=== PATIENT | male | born 1950 | race Caucasian/White ===

== ENCOUNTER 2017-06-21 09:41 | Emergency (ER) | payer MEDICARE, OTHER ==
[2017-06-21 09:46] VITALS: TEMP 98.2
[2017-06-21] MEDS ORDERED: SODIUM CHLORIDE 0.9% 1,000 ML IV ONE (09:50)
--- NOTE | 2017-06-21 10:16 | ED ---
General Adult HPI - General Chief complaint: Syncope Stated complaint: Dizziness Time Seen by Provider: 06/21/17 09:48 Source: patient, EMS, RN notes reviewed Mode of arrival: EMS Limitations: no limitations - History of Present Illness Initial comments: 67-year-old male presenting with near syncopal episode. Patient's was in his usual state of health, this morning bent down to pet the dog, felt very lightheaded and nearly passed out. Patient denied any chest pain with this. There was some mild dyspnea. No palpitations. Patient denies abdominal pain but states he has some mild nausea. No vomiting or diarrhea. No fever or chills. Patient has been otherwise well. States he ate a normal breakfast this morning. Denies ashish vertigo symptoms, describes more of a lightheadedness and near syncopal episode. Patient does have history of TIA approximately 8 years ago. He has been taking a daily aspirin. At the time my evaluation, patient is symptomatic only with standing. He feels normal with sitting or laying. - Related Data Home Medications Medication Instructions Recorded Confirmed Metoprolol Tartrate [Lopressor] 50 mg PO BID 12/08/13 06/21/17 Simvastatin [Zocor] 40 mg PO HS 12/08/13 06/21/17 Tamsulosin HCl [Flomax] 0.8 mg PO HS 12/08/13 06/21/17 Aspirin EC [Ecotrin] 325 mg PO HS 06/21/17 06/21/17 Cholecalciferol [Vitamin D3] 5,000 unit PO HS 06/21/17 06/21/17 Fluticasone Nasal [place] [Flonase 1 spray EA NOSTRIL DAILY 06/21/17 06/21/17 Nasal [place]] Losartan/Hydrochlorothiazide 1 tab PO DAILY 06/21/17 06/21/17 [Losartan-Hctz 100-25 mg Tab] Magnesium Oxide [Luevano] 500 mg PO HS 06/21/17 06/21/17 Zinc 100mg 100 mg PO HS 06/21/17 06/21/17 Allergies Allergy/AdvReac Type Severity Reaction Status Date / Time No Known Allergies Allergy Verified 06/21/17 10:19 Review of Systems ROS Statement: Those systems with pertinent positive or pertinent negative responses have been documented in the HPI. ROS Other: All systems not noted in ROS Statement are negative. Past Medical History Past Medical History: CVA/TIA, Hyperlipidemia, Hypertension, Osteoarthritis (OA) Additional Past Medical History / Comment(s): BACK PROBLEMS History of Any Multi-Drug Resistant Organisms: None Reported Past Surgical History: Joint Replacement, Orthopedic Surgery Additional Past Surgical History / Comment(s): LEFT KNEE, RIGHT ROTATOR CUFF, RIGHT HAND Past Psychological History: No Psychological Hx Reported Smoking Status: Former smoker Past Alcohol Use History: None Reported Past Drug Use History: None Reported General Exam Limitations: no limitations General appearance: alert, in no apparent distress Head exam: Present: atraumatic, normocephalic Eye exam: Present: normal appearance, PERRL ENT exam: Present: normal exam Neck exam: Present: normal inspection. Absent: tenderness, meningismus Respiratory exam: Present: normal lung sounds bilaterally. Absent: respiratory distress, wheezes Cardiovascular Exam: Present: regular rate, normal rhythm GI/Abdominal exam: Present: soft. Absent: distended, tenderness Extremities exam: Present: normal inspection, normal capillary refill. Absent: pedal edema, calf tenderness Neurological exam: Present: alert, oriented X3, CN II-XII intact, other (Heel-to -falcon normal, finger to nose normal no ataxia). Absent: motor sensory deficit Psychiatric exam: Present: normal affect, normal mood Skin exam: Present: warm, dry, intact. Absent: cyanosis, diaphoretic, erythema Course Vital Signs 06/21/17 06/21/17 06/21/17 09:43 10:50 12:31 Temperature 98.2 F Pulse Rate 89 59 L 61 Respiratory 18 19 18 Rate Blood Pressure 140/77 128/71 136/86 O2 Sat by Pulse 97 100 97 Oximetry EKG Findings - EKG Comments: EKG Findings:: EKG, normal sinus rhythm, left axis deviation, low voltage QRS, ventricular rate is 64, CA interval 194, QRS duration 94, QTC 431 Medical Decision Making - Medical Decision Making 67-year-old male resents with near syncopal episode while standing and bending forward. Patient did not pass out. Orthostatic vital signs were not able to be obtained in the emergency department because the patient was too symptomatic with standing prior to fluid resuscitation. EKG shows normal sinus rhythm. Exam is unremarkable, nonfocal neurologic exam, no ataxia. Chest x-rays obtained is negative for acute cardiopulmonary disease, head CT negative for intracranial hemorrhage or mass effect. Workup does reveal normal white blood cell count 7.5, hemoglobin is on the high side of normal which is 17.3. Troponin negative. Patient's given 1 L of IV hydration. On reevaluation he is totally asymptomatic. Standing without issue. Urine does appear very dark consistent with a degree of dehydration. Patient has no complaints the time of reevaluation. Diagnosis: Near-syncope, dehydration - Lab Data Result diagrams: 06/21/17 09:50 06/21/17 09:50 Lab Results 06/21/17 06/21/17 06/21/17 Range/Units 09:50 09:50 09:50 WBC 7.5 (3.8-10.6) k/uL RBC 5.98 H (4.30-5.90) m/uL Hgb 17.3 (13.0-17.5) gm/dL Hct 51.6 (39.0-53.0) % MCV 86.3 (80.0-100.0) fL MCH 29.0 (25.0-35.0) pg MCHC 33.6 (31.0-37.0) g/dL RDW 12.8 (11.5-15.5) % Plt Count 194 (150-450) k/uL Neutrophils % 70 % Lymphocytes % 19 % Monocytes % 6 % Eosinophils % 3 % Basophils % 1 % Neutrophils # 5.3 (1.3-7.7) k/uL Lymphocytes # 1.4 (1.0-4.8) k/uL Monocytes # 0.5 (0-1.0) k/uL Eosinophils # 0.2 (0-0.7) k/uL Basophils # 0.1 (0-0.2) k/uL PT (9.0-12.0) sec INR (<1.2) APTT (22.0-30.0) sec Sodium 144 (137-145) mmol/L Potassium 4.0 (3.5-5.1) mmol/L Chloride 104 (98-107) mmol/L Carbon Dioxide 28 (22-30) mmol/L Anion Gap 12 mmol/L BUN 19 (9-20) mg/dL Creatinine 0.68 (0.66-1.25) mg/dL Est GFR (CKD-EPI)AfAm >90 (>60 ml/min/1.73 sqM) Est GFR (CKD-EPI)NonAf >90 (>60 ml/min/1.73 sqM) Glucose 109 H (74-99) mg/dL Calcium 9.2 (8.4-10.2) mg/dL Magnesium 2.0 (1.6-2.3) mg/dL Total Bilirubin 1.0 (0.2-1.3) mg/dL AST 30 (17-59) U/L ALT 42 (21-72) U/L Alkaline Phosphatase 77 (38-126) U/L Total Creatine Kinase 195 H (55-170) U/L CK-MB (CK-2) 3.1 H* (0.0-2.4) ng/mL CK-MB (CK-2) Rel Index 1.6 Troponin I <0.012 (0.000-0.034) ng/mL Total Protein 6.7 (6.3-8.2) g/dL Albumin 3.8 (3.5-5.0) g/dL Urine Color Urine Appearance (Clear) Urine pH (5.0-8.0) Ur Specific [place] (1.001-1.035) Urine Protein (Negative) Urine Glucose (UA) (Negative) Urine Ketones (Negative) Urine Blood (Negative) Urine Nitrite (Negative) Urine Bilirubin (Negative) Urine Urobilinogen (<2.0) mg/dL Ur Leukocyte Esterase (Negative) Urine RBC (0-5) /hpf Urine WBC (0-5) /hpf Ur Squamous Epith Cells (0-4) /hpf Urine Bacteria (None) /hpf Urine Mucus (None) /hpf 06/21/17 06/21/17 Range/Units 09:50 09:50 WBC (3.8-10.6) k/uL RBC (4.30-5.90) m/uL Hgb (13.0-17.5) gm/dL Hct (39.0-53.0) % MCV (80.0-100.0) fL MCH (25.0-35.0) pg MCHC (31.0-37.0) g/dL RDW (11.5-15.5) % Plt Count (150-450) k/uL Neutrophils % % Lymphocytes % % Monocytes % % Eosinophils % % Basophils % % Neutrophils # (1.3-7.7) k/uL Lymphocytes # (1.0-4.8) k/uL Monocytes # (0-1.0) k/uL Eosinophils # (0-0.7) k/uL Basophils # (0-0.2) k/uL PT 10.5 (9.0-12.0) sec INR 1.1 (<1.2) APTT 23.7 (22.0-30.0) sec Sodium (137-145) mmol/L Potassium (3.5-5.1) mmol/L Chloride (98-107) mmol/L Carbon Dioxide (22-30) mmol/L Anion Gap mmol/L BUN (9-20) mg/dL Creatinine (0.66-1.25) mg/dL Est GFR (CKD-EPI)AfAm (>60 ml/min/1.73 sqM) Est GFR (CKD-EPI)NonAf (>60 ml/min/1.73 sqM) Glucose (74-99) mg/dL Calcium (8.4-10.2) mg/dL Magnesium (1.6-2.3) mg/dL Total Bilirubin (0.2-1.3) mg/dL AST (17-59) U/L ALT (21-72) U/L Alkaline Phosphatase (38-126) U/L Total Creatine Kinase (55-170) U/L CK-MB (CK-2) (0.0-2.4) ng/mL CK-MB (CK-2) Rel Index Troponin I (0.000-0.034) ng/mL Total Protein (6.3-8.2) g/dL Albumin (3.5-5.0) g/dL Urine Color Yellow Urine Appearance Cloudy (Clear) Urine pH 8.0 (5.0-8.0) Ur Specific [place] 1.019 (1.001-1.035) Urine Protein Negative (Negative) Urine Glucose (UA) Negative (Negative) Urine Ketones Negative (Negative) Urine Blood Trace H (Negative) Urine Nitrite Negative (Negative) Urine Bilirubin Negative (Negative) Urine Urobilinogen <2.0 (<2.0) mg/dL Ur Leukocyte Esterase Negative (Negative) Urine RBC 3 (0-5) /hpf Urine WBC 2 (0-5) /hpf Ur Squamous Epith Cells <1 (0-4) /hpf Urine Bacteria Rare H (None) /hpf Urine Mucus Rare H (None) /hpf Disposition Clinical Impression: Dehydration, Near syncope Disposition: HOME SELF-CARE Condition: Fair Instructions: Near Syncope (ED) Additional Instructions: Please return with worsening or changing symptoms. Is patient prescribed a controlled substance at discharge?: No Referrals: Bev Macdonald MD [Primary Care Provider] - 1-2 days Time of Disposition: 13:05
[2017-06-21 10:19] LABS: Basophils # (A) 0.1 k/uL (0-0.2); Basophils % (A) 1 %; Eosinophils # (A) 0.2 k/uL (0-0.7); Eosinophils % (A) 3 %; HCT 51.6 % (39.0-53.0); HGB 17.3 gm/dL (13.0-17.5); Lymphocytes # (A) 1.4 k/uL (1.0-4.8); Lymphocytes % (A) 19 %; MCHC 33.6 g/dL (31.0-37.0); MCV 86.3 fL (80.0-100.0); Mean Platelet Volume 7.2; Monocytes # (A) 0.5 k/uL (0-1.0); Monocytes % (A) 6 %; Neutrophils # (A) 5.3 k/uL (1.3-7.7); Neutrophils % (A) 70 %; Platelet Count 194 k/uL (150-450); RBC 5.98 m/uL (4.30-5.90); RDW 12.8 % (11.5-15.5); WBC 7.5 k/uL (3.8-10.6)
[2017-06-21 10:28] LABS: INR 1.1 (<1.2); Partial Thromboplastin Time 23.7 sec (22.0-30.0); Prothrombin Time 10.5 sec (9.0-12.0)
[2017-06-21 10:30] LABS: Appearance,Urine Cloudy (Clear); Bacteria,Urine Rare /hpf; Bilirubin,Urine Negative (Negative); Blood,Urine Trace (Negative); Color,Urine Yellow; Glucose,Urine (UA) Negative (Negative); Ketones,Urine Negative (Negative); Leukocyte Esterase,Urine Negative (Negative); Mucus,Urine Rare /hpf; Nitrite,Urine Negative (Negative); Protein,Urine Negative (Negative); RBC,Urine 3 /hpf (0-5); Specific Gravity,Urine 1.019 (1.001-1.035); Squamous Epithelial Cell,Urine <1 /hpf (0-4); Urobilinogen,Urine <2.0 mg/dL (<2.0); WBC,Urine 2 /hpf (0-5)
[2017-06-21 10:31] LABS: ALT 42 U/L (21-72); AST 30 U/L (17-59); Albumin 3.8 g/dL (3.5-5.0); Alkaline Phosphatase 77 U/L (38-126); Anion Gap 12 mmol/L; Blood Urea Nitrogen 19 mg/dL (9-20); Calcium 9.2 mg/dL (8.4-10.2); Carbon Dioxide 28 mmol/L (22-30); Chloride 104 mmol/L (98-107); Glucose 109 mg/dL (74-99); Sodium 144 mmol/L (137-145); Total Protein 6.7 g/dL (6.3-8.2)
--- NOTE | 2017-06-21 10:32 | XR ---
EXAMINATION TYPE: XR chest 2V DATE OF EXAM: 06/21/2017 COMPARISON: Chest x-ray April 01, 2009. HISTORY: Dizziness and weakness. TECHNIQUE: Frontal and lateral views of the chest are obtained. FINDINGS: Low lung volumes are redemonstrated. There is no focal air space opacity, pleural effusion, or pneumothorax seen. The cardiac silhouette size is within normal limits with atherosclerotic asif ge in aortic knob. There is multilevel spurring in the right lateral thoracic spine. IMPRESSION: No suspicious acute cardiopulmonary process.
[2017-06-21 10:48] LABS: Creatine Kinase 195 U/L (55-170)
[2017-06-21] MEDS ORDERED: ONDANSETRON 4 MG/2 ML VIAL IVP STA (11:00)
[2017-06-21 11:01] LABS: Troponin I <0.012 ng/mL (0.000-0.034)
[2017-06-21] MEDS ORDERED: MECLIZINE 12.5 MG TAB PO STA (11:01)
[2017-06-21 11:02] LABS: Creatine Kinase MB 3.1 ng/mL (0.0-2.4)
[2017-06-21] MEDS ORDERED: METOPROLOL TARTRATE 5 MG/5 ML VIAL IVP STA (11:02)
--- NOTE | 2017-06-21 12:25 | CT ---
EXAMINATION TYPE: CT brain wo con DATE OF EXAM: 06/21/2017 COMPARISON: Prior head CT 04/01/2009 HISTORY: Dizziness CT DLP: 1156 mGycm Automated exposure control for dose reduction was used. Helical imaging through the brain. FINDINGS: There is no significant interval change. Cerebral vascular calcifications are present. There is no he morrhage or hydrocephalus. Brain density is stable. Minimal mucosal disease present in the ethmoid ai r cells. IMPRESSION: NO SIGNIFICANT INTERVAL CHANGE. NO BRAIN ABNORMALITY EVIDENT.
[2017-06-21 12:36] VITALS: BP 136/86; PULSE 61; RESP 18
== END 2017-06-21 13:10 | disposition home or self-care (01) ==
LOC: EC 09:41
DX: E86.0 Dehydration (principal); R55 Syncope and collapse; E78.5 Hyperlipidemia, unspecified; I10 Essential (primary) hypertension; Z86.14 Personal history of Methicillin resistant Staphylococcus aureus infection; Z87.891 Personal history of nicotine dependence; Z79.82 Long term (current) use of aspirin; Z79.51 Long term (current) use of inhaled steroids; Z79.899 Other long term (current) drug therapy; Z86.73 Personal history of transient ischemic attack (TIA), and cerebral infarction without residual deficits
CPT/HCPCS: 36415; 93005; 80053; 82550; 82553; 83735; 84484; 85025; 85610; 85730; 81001; 71046; 70450; 99285; 96374; 96361; J2405

== ENCOUNTER → 2022-07-28 | Outpatient (CLI) | payer MEDICARE, OTHER ==
--- NOTE | 2022-07-28 14:48 | CTL ---
EXAMINATION TYPE: CT Low Dose Lung DATE OF EXAM ORDERED: 07/28/2022 HISTORY: Long-term tobacco use. Lung cancer screening CT DLP: 95.[address] CTDI: 2.4 mGy Automated exposure control for dose reduction was used. SCREENING VISIT: First after baseline COMPARISON: Prior study July 28, 2021 TECHNIQUE: Low dose computed tomography scan was performed through the chest at 1 mm thick sections a nd reconstructed images in multiple planes at 1 mm and [address] DIAGNOSTIC QUALITY: Satisfactory FINDINGS: LUNG NODULES: None. LUNGS: COPD: Severity: Mild Fibrosis: Severity: None Lymph nodes: Calcified mediastinal lymph nodes redemonstrated. Other findings: Mild calcification at level of the mitral and aortic valves RIGHT PLEURAL SPACE: Effusion: None Calcification: None Thickening: None Pneumothorax: None LEFT PLEURAL SPACE: Effusion: None Calcification: None Thickening: None Pneumothorax: None HEART: Heart Size: Normal Coronary Calcification: Moderate Pericardial Effusion: None OTHER FINDINGS: Upper abdomen: Occasional punctate calcification in the spleen redemonstrated Bony thorax: Multilevel spurring in the spine. Supraclavicular region: None Other: None IMPRESSION: No new suspicious nodules. CT LUNG RAD AND CT CHEST RECOMMENDATION: Lung-Rad 1 Negative: Continue annual screening with LDCT in 12 months. S Modifier (other clinically significant findings): None
== END | disposition home or self-care (01) ==
LOC: RADCTMAIN 13:38
PROVIDERS: ATTEND Family Medicine
DX: Z12.2 Encounter for screening for malignant neoplasm of respiratory organs (principal); Z87.891 Personal history of nicotine dependence
CPT/HCPCS: 71271

== ENCOUNTER 2022-12-29 11:36 | Inpatient (IN) | payer MEDICARE, OTHER ==
[~2022-12-29 11:36] MED LIST: DEXAMETHASONE SOD PHOSPHATE 4 MG/ML 1 ML VIAL IV ONE; HYDROmorphone 0.5 MG/0.5 ML SYRINGE IVP PRN; LIDOCAINE 1% (10MG/ML) FOR IV START INTRADERMA PRN; MIDAZOLAM 2 MG/2 ML VIAL IV PRN; ONDANSETRON 4 MG/2 ML VIAL IVP ONE; ceFAZolin 1,000 MG in SODIUM CHLORIDE 0.9% IRRIGATIO 1,000 ML IRRIGATION PRN
[2022-12-29] MEDS: LACTATED RINGERS 1,000 ML IV SCH (12:41)
[2022-12-29] MEDS ORDERED: ONDANSETRON 4 MG/2 ML VIAL IVP ONE (12:45)
[2022-12-29] MEDS ORDERED: ONDANSETRON 4 MG/2 ML VIAL ONE (12:57)
[2022-12-29] MEDS ORDERED: GELATIN SPONGE,ABSORB (LARGE) 1 EACH SPONGE TOPICAL ONE ×2 (14:47→15:54)
[2022-12-29] MEDS ORDERED: methylPREDNISolone ACETATE 80 MG/ML 1 ML VIAL MISCELLANE ONE ×2 (14:47→15:54)
[2022-12-29] MEDS ORDERED: LIDOCAINE 0.5%-EPI 1:200,000 50 ML VIAL SQ ONE ×2 (14:47→15:23)
[2022-12-29] MEDS ORDERED: BUPIVACAINE (PF) 0.5% 30 ML VIAL SQ ONE ×2 (14:48→15:23)
[2022-12-29] MEDS ORDERED: THROMBIN (BOVINE) 5,000 UNIT VIAL MISCELLANE ONE ×2 (14:48→15:54)
[2022-12-29] MEDS ORDERED: NEOSTIGMINE 1 MG/ML 10 ML VIAL ONE (14:51)
[2022-12-29] MEDS ORDERED: GLYCOPYRROLATE 0.2 MG/ML 2 ML VIAL ONE (14:51)
[2022-12-29] MEDS ORDERED: PHENYLEPHRINE-0.9% NACL SYG 1,000 MCG/10 ML SYRINGE ONE (14:51)
[2022-12-29] MEDS ORDERED: ePHEDrine 50 MG/ML 1 ML VIAL ONE (14:51)
[2022-12-29] MEDS ORDERED: PROPOFOL 10 MG/ML 20 ML VIAL IV ONE (14:51)
[2022-12-29] MEDS ORDERED: LIDOCAINE 1% INJ 10MG/ML (20 ML MDV) ONE (14:51)
[2022-12-29] MEDS ORDERED: fentaNYL (PF) 50 MCG/ML 2 ML AMP ONE (14:51)
[2022-12-29] MEDS ORDERED: HYDROmorphone (PF) 1 MG/ML ONE (14:51)
[2022-12-29] MEDS ORDERED: SUCCINYLCHOLINE CHLORIDE 200 MG/10 ML VIAL IV ONE (14:51)
[2022-12-29] MEDS ORDERED: ROCURONIUM 10 MG/ML (5 ML VIAL) IV ONE (14:51)
[2022-12-29] MEDS ORDERED: LACTATED RINGERS 1,000 ML IV ONE (16:12)
--- NOTE | 2022-12-29 17:36 | XR ---
EXAMINATION TYPE: XR lumbar spine 2 or 3V, FL guidance operating room DATE OF EXAM: 12/29/2022 CLINICAL HISTORY: Low back pain. TECHNIQUE: Fluoroscopy. COMPARISON: None. FINDINGS: Fluoroscopic guidance was provided during attempted L3-L4 laminectomy procedure performed by Dr. Valdes. A total of 1.3 seconds of fluoroscopic time was utilized during the procedure and 1 sp ot image is acquired. Intraoperative image acquired shows a pointer for localization purposes for surgical planning at post erior L4 level. IMPRESSION: As Above.
--- NOTE | 2022-12-29 17:40 | P.OP ---
Date of Procedure: 12/29/22 Preoperative Diagnosis: Severe spinal stenosis L3 4, lower extremity radiculopathy, lower extremity weakness, degenerative disc disease, neurogenic claudication Postoperative Diagnosis: Same with inadvertent intraoperative dural tear during surgery Anesthesia: GETA Pathology: none sent Condition: stable Disposition: PACU Description of Procedure: BRIEF OPERATIVE NOTE Preoperative Diagnosis:Severe spinal stenosis L3 4, lower extremity radiculopathy, lower extremity weakness, degenerative disc disease, neurogenic claudication Postoperative Diagnosis: Same with intraoperative inadvertent dural tear Procedure: Laminectomy and decompression L3 4 Surgeon: Dr. Valdes Graphic Design Manager: Aaron Cheek is present throughout the entire the case persistence during positioning, dissection, exposure, visualization, and all crucial elements of the case as well as closure. Anesthesia: General anesthesia Estimated blood loss: Approximately 150 mL Complications: None apparent Components implanted: We placed a small one and half by 1 cm piece of DuraGen over the L3 4 interlaminar space dural tear with approximately 5 mL of Tisseel Disposition: To recovery room in good stable condition. OPERATIVE INDICATIONS The patient has been having issues in their lower back and lower extremities. He was having severe worsening and is having inability to ambulate due to his symptoms. He was having weakness in his lower extremities particularly with ambulation. He is having significant decrease in his overall function and mobility. His found have evidence of significant spondylosis at his lumbar spine. At the L3 4 level there was particular severe stenosis with congestion at his cauda equina which correlated well with his low back and lower extremity issues. The patient has been through conservative treatment. He is not having any benefit despite conservative treatment. We discussed various treatment options including surgery, and the patient wishes to proceed with surgery We discussed the risk, patient's alternatives and benefits of surgery including but not limited to, risk of bleeding risk of infection, risk of need for further surgery, risk of decreased, loss of motion, loss of function, nerve damage, paralysis, heart attack, blindness and . I felt that he can do well with decompression at that level. We did discuss possibly of decompression with possibly of fusion as well as the possibility of interlaminar stabilization. We felt that decompression with possible placement of interlaminar stabilizer could do well for him. OPERATIVE SUMMARY After discussing all the risks, patient alternatives and benefits at length, the patient elected to proceed with surgical intervention, signed informed consent, and presented for their procedure. The patient was seen and examined in the preoperative holding area and the surgical site was marked. The patient was given antibiotics and brought to the operating room. The patient was sedated and intubated by anesthesia in standard fashion. The patient was positioned on to the operating room table in a prone position on the appropriate frame which was well-padded and well molded. We were careful to pad any bony prominences and pressure points. We were careful to maintain the patient's cervical spine and good neutral alignment and position throughout. The patient was prepped and draped in a normal standard fashion. An appropriate timeout and keystone protocol performed. We were able to proceed with the surgery. Fluoroscopy was utilized to establish the appropriate level. The local wound area was infiltrated with local anesthetic. An incision was made at the midline longitudinally over the appropriate levels. Dissection was taken down subcutaneously to the level of the fascia which was split midline. Dissection was taken over the lamina. Intraoperative fluoroscopy was taken which showed a marker at the appropriate level at L3 4. With the appropriate level positively confirmed, we were able to proceed with laminectomy. The wound was copiously irrigated and suctioned dry as had been done periodically throughout the case. I performed a laminectomy with a combination of curettes and a high-speed bur and [place] rongeurs. A small medial facetectomy was performed bilaterally to get further decompression. A partial foraminotomy was also performed. The ligamentum flavum was severely thickened and it worked carefully to start to take down the ligamentum flavum. Portions of the ligamentum flavum were taken down to further enhance decompression however at this point it was discovered that there was obvious dural tear at the intralaminar space at L3 4. The nerve roots were clearly visible and somewhat bundled. There was however, no significant leakage of CSF fluid. At this point in the case the patient started to buttock from his anesthesia and there is no significant CSF leakage. The patient was settled with his Gen. anesthesia and IV began to explore the area and extend the laminectomy and partial medial facetectomy to try to expose the margins of the dural tear. I could see the traversing nerve roots but I was not able to find any margins of the dura to attempt to reapproximate. There was still no evidence of CSF leakage on the field. I had good decompression at the space. There is no gross CSF leakage. However I was unable to find margins of the dura. This did not seem to be a simple tear but rather a portion of dura that was missing or had been excised during the decompression. It possible that the dura had been significantly adherent and scarred to the ligamentum and undersurface of lamina and had been removed during the decompression. The area over the nerve roots that was exposed was approximately 1 x 2 centimeters at the margins of the decompression itself. I could not specifically identify any margins of dura. At this point I had to decide whether or not to further expand the laminectomy both cephalad laterally and caudally to try to find margins of the dura versus the possibility of trying to place a patch of DuraGen over the area and potential Tisseel to cover. Again there was no CSF leakage from the open space. Rather than pursue further opening and destabilization with extensive surgery I felt that it would be safe to place a patch of DuraGen over the area and placed Tisseel around the margins to try to achieve closure. A small portion of DuraGen was cut placed under the margins of the laminectomy and then coated with Tisseel. The patient again had some bucking but there is no evidence of any CSF leak. We decided to proceed with closure. The wound was irrigated and suctioned dry. We were able to proceed with closure. The fascia was closed for a watertight closure. The subcuticular tissue was closed with absorbable suture. The wound was cleaned and dried and dressed with the appropriate dressing. The drapes were broken down. The patient was gently rolled back onto their hospital bed being careful to maintain their cervical spine and good neutral alignment and position. They were woken up by anesthesia, extubated, and brought to the re covery room in good stable condition. He'll remain flat in bed. The patient will be admitted to the hospital for observation and for appropriate postoperative care, medical management and monitoring. He'll remain flat in bed. We will continue to follow them closely about the postoperative course.
[2022-12-29] MEDS ORDERED: HYDROmorphone 1 MG/ML 1 ML SYRINGE IVP PRN (17:41)
[2022-12-29] MEDS ORDERED: BENZOCAINE/MENTHOL LOZENG 1 EACH LOZENGE MUCOUS MEM PRN (17:41)
[2022-12-29] MEDS ORDERED: HYDROmorphone 0.5 MG/0.5 ML SYRINGE IVP PRN (17:41)
[2022-12-29] MEDS ORDERED: HYDROcodone/APAP 5-325MG 1 EACH TAB PO PRN (17:41)
[2022-12-29] MEDS ORDERED: SENNOSIDES-DOCUSATE SODIUM 1 EACH TAB PO PRN (17:42)
[2022-12-29] MEDS ORDERED: ONDANSETRON 4 MG/2 ML VIAL IVP PRN (17:42)
[2022-12-29] MEDS: SODIUM CHLORIDE 0.9% 1,000 ML IV SCH (20:01)
[2022-12-29] MEDS: ATORVASTATIN 20 MG TAB PO SCH (21:58)
[2022-12-29] MEDS: TAMSULOSIN 0.4 MG CAP.ER.24H PO SCH (21:58)
[2022-12-29] MEDS: METOPROLOL TARTRATE 50 MG TAB PO SCH (21:58)
[2022-12-29] MEDS: CHOLECALCIFEROL 25 MCG (1000 IU) TABLET PO SCH (21:58)
[2022-12-29] MEDS: MAGNESIUM OXIDE 400 MG TAB PO SCH (22:00)
[2022-12-29] MEDS: NON FORMULARY DRUG (Tadalafil [Tadalafil] 5 MG Tablet) PO SCH (22:00)
[2022-12-29] MEDS: methylPREDNISolone SOD SUCCI 125 MG/2 ML VIAL IV SCH (23:17)
[2022-12-29] MEDS: HYDROmorphone 1 MG/ML 1 ML SYRINGE IVP PRN (23:18)
[2022-12-30] MEDS: HYDROcodone/APAP 10-325MG 1 EACH TAB PO PRN ×3 (00:41→15:16)
[2022-12-30] MEDS: HYDROmorphone 1 MG/ML 1 ML SYRINGE IVP PRN ×3 (03:31→11:18)
[2022-12-30] MEDS: LACTATED RINGERS 1,000 ML IV SCH ×2 (07:17→10:40)
--- NOTE | 2022-12-30 08:48 | P.PN ---
Progress Note - Text Progress Note Date: 12/30/22 Postoperative day #1 Patient is seen and examined today at bedside. I was into medication with the nurse a few times overnight as well. Patient continues to have severe symptoms in his low back and towards his hips bilaterally. He seems to be having significant neurologic pain. He is not complaining weakness but he does feel numbness over his legs diffusely. He is unable to obtain any comfort despite the pain medications. He denies any nausea. Denies any specific headaches. He is unable to find comfort and positioning while flat in bed. Physical Exam Afebrile with stable vital signs Abdomen is soft nontender. Chest has good excursion deep and space expiration The incision site is clean dry and intact. No erythema there is no purulence. Extremities have not had change in his strength from prior to surgery. He may have some sensory diffuse paresthesias is unable to characterize Calves and thighs were soft nontender without evidence of DVT. Assessment/Plan Postoperative day #1 status post laminectomy decompression at L3 4 Incidental durotomy L3 4 Possible entrapment of herniated nerve roots at durotomy site I had a long talk with the patient and his this morning at bedside. The patient is having significant symptoms and does not seem to be responding expectedly from his surgery. He had an incidental durotomy have time of surgery. With significant difficulty at times surgery trying to perform repair and I think that he may have entrapment of his nerve roots around the durotomy site. I think it would be unlikely for this to resolve on its own and I discussed this with him. I think that she has potential for benefit with repeat surgery for revision of the laminectomy decompression evaluation of the durotomy site and revision of the dural repair. I tried to explain this at length at bedside with him and his . It is difficult to predict the exact nature of his pain given the short time after his surgery thus far but his pain does not seem to be proportional to the surgical site itself and I think that there is further issues with the nerve roots at the durotomy site contributint to his symptoms. I discussed with him the idea of further surgery with revision laminectomy and revision repair. I discussed further risks, occasions a lternatives and benefits including but not limited to the risk of bleeding risk of infection risk of need for further surgery risk of further tear risk of damage to nerves risk of problems with anesthesia as well as the fact that surgery may not alleviate his symptoms as explained. He understands these issues and will plan to proceed with surgery today. He'll remain nothing by mouth for surgery today.
[2022-12-30] MEDS: ASPIRIN 81 MG PO SCH (08:49)
[2022-12-30] MEDS: LOSARTAN-HCTZ 50-12.5 MG 1 EACH TAB PO SCH (08:53)
[2022-12-30] MEDS: METOPROLOL TARTRATE 50 MG TAB PO SCH (08:53)
[2022-12-30] MEDS: SODIUM CHLORIDE 0.9% 1,000 ML IV SCH ×3 (08:53→23:18)
[2022-12-30] MEDS: diazePAM 5 MG TAB PO PRN ×2 (08:54→15:16)
[2022-12-30] MEDS: methylPREDNISolone SOD SUCCI 125 MG/2 ML VIAL IV SCH ×3 (08:54→23:39)
[2022-12-30 10:59] LABS: BUN/Creat Ratio 26.57 Ratio (12.00-20.00); Blood Urea Nitrogen 18.6 mg/dL (9.0-27.0); Calcium 9.2 mg/dL (8.7-10.3); Carbon Dioxide 23.4 mmol/L (21.6-31.8); Chloride 107 mmol/L (96-109); Glucose 142 mg/dL (70-110); Potassium 3.9 mmol/L (3.5-5.5); Sodium 143 mmol/L (135-145)
[2022-12-30 11:02] LABS: Basophils # (A) 0.02 X 10*3/uL (0.00-0.10); Basophils % (A) 0.1 %; Eosinophils # (A) 0 X 10*3/uL (0.04-0.35); Eosinophils % (A) 0 %; HCT 51.3 % (39.6-50.0); HGB 17.6 d/dL (13.0-17.0); Lymphocytes # (A) 0.69 X 10*3/uL (0.90-5.00); Lymphocytes % (A) 3.9 %; MCH 30.5 pg (27.0-32.0); MCHC 34.3 d/dL (32.0-37.0); MCV 88.9 FL (80.0-97.0); Monocytes # (A) 0.13 X 10*3/uL (0.20-1.00); Monocytes % (A) 0.7 %; NRBC Per 100 WBC 0 X 10*3/uL (0.00-0.01); Neutrophils # (A) 16.78 X 10*3/uL (1.80-7.70); Neutrophils % (A) 94.7 %; Platelet Count 155 X 10*3/uL (140-440); RBC 5.77 X 10*6/uL (4.40-5.60); RDW 12.4 % (11.5-14.5); WBC 17.73 X 10*3/uL (4.50-10.00)
[2022-12-30] MEDS ORDERED: LACTATED RINGERS 1,000 ML IV ONE ×2 (16:45→18:54)
[2022-12-30] MEDS ORDERED: ONDANSETRON 4 MG/2 ML VIAL IVP ONE (17:10)
[2022-12-30] MEDS ORDERED: DEXAMETHASONE SOD PHOSPHATE 4 MG/ML 1 ML VIAL IVP ONE (17:11)
[2022-12-30] MEDS ORDERED: fentaNYL (PF) 50 MCG/ML 2 ML AMP IVP ONE (17:11)
[2022-12-30] MEDS ORDERED: PHENYLEPHRINE-0.9% NACL SYG 1,000 MCG/10 ML SYRINGE ONE (17:39)
[2022-12-30] MEDS ORDERED: NEOSTIGMINE 1 MG/ML 10 ML VIAL ONE (17:39)
[2022-12-30] MEDS ORDERED: MIDAZOLAM 2 MG/2 ML VIAL ONE (17:39)
[2022-12-30] MEDS ORDERED: fentaNYL (PF) 50 MCG/ML 2 ML AMP ONE (17:39)
[2022-12-30] MEDS ORDERED: HYDROmorphone (PF) 1 MG/ML ONE (17:39)
[2022-12-30] MEDS ORDERED: ROCURONIUM 10 MG/ML (5 ML VIAL) IV ONE (17:39)
[2022-12-30] MEDS ORDERED: PROPOFOL 10 MG/ML 20 ML VIAL IV ONE (17:39)
[2022-12-30] MEDS ORDERED: SUCCINYLCHOLINE CHLORIDE 200 MG/10 ML VIAL IV ONE (17:39)
[2022-12-30] MEDS ORDERED: LIDOCAINE 1% INJ 10MG/ML (20 ML MDV) ONE (17:39)
[2022-12-30] MEDS ORDERED: GLYCOPYRROLATE 0.2 MG/ML 2 ML VIAL ONE (17:39)
[2022-12-30] MEDS ORDERED: THROMBIN (BOVINE) 5,000 UNIT VIAL MISCELLANE ONE (18:15)
[2022-12-30] MEDS ORDERED: GELATIN SPONGE,ABSORB (LARGE) 1 EACH SPONGE MISCELLANE ONE (18:15)
[2022-12-30] MEDS ORDERED: ceFAZolin 1,000 MG in SODIUM CHLORIDE 0.9% 1,000 ML IRRIGATION ONE (18:16)
[2022-12-30] MEDS ORDERED: ceFAZolin 1,000 MG VIAL ONE (19:00)
[2022-12-30] MEDS ORDERED: SODIUM CHLORIDE 0.9% 100 ML BAG ONE (19:00)
[2022-12-30] MEDS ORDERED: SODIUM CHLORIDE 0.9% 50 ML with ceFAZolin 2,000 MG IV ONE ×2 (19:00)
[2022-12-30] MEDS ORDERED: BENZOCAINE/MENTHOL LOZENG 1 EACH LOZENGE MUCOUS MEM PRN (20:55)
[2022-12-30] MEDS ORDERED: bisacodyL 10 MG SUPP RECTAL PRN (20:55)
[2022-12-30] MEDS ORDERED: MAGNESIUM HYDROXIDE 2,400 MG/30 ML CUP PO PRN (20:55)
[2022-12-30] MEDS ORDERED: CYCLOBENZAPRINE 10 MG TAB PO PRN (20:55)
--- NOTE | 2022-12-30 21:13 | P.OP ---
Date of Procedure: 12/30/22 Preoperative Diagnosis: Persistent dural tear New Lower extremity numbness Incidental durotomy which occurred at the time of surgery yesterday during the laminectomy decompression at L3 4 Postoperative Diagnosis: Same with findings of herniated nerve roots through the dural tear and persistent dural tear and leak at L3 4 Anesthesia: GETA Pathology: none sent Condition: stable Disposition: PACU Description of Procedure: BRIEF OPERATIVE NOTE Preoperative Diagnosis:Persistent dural tear New Lower extremity numbness Incidental durotomy which occurred at the time of surgery yesterday during the laminectomy decompression at L3 4 Postoperative Diagnosis: Same with findings of persistent dural tear with herniated nerve roots through the tear itself, persistent tear approximately 1 cm at L3 4 Procedure: Revision Laminectomy and decompression Revision of the repair of the incidental durotomy at L3 4 with repositioning reduction of herniated nerve roots Surgeon: Dr. Valdes Director Software Development: Surgical first Asst. Anesthesia: General anesthesia per Dr. Panda Estimated blood loss: Approximately 200 mL Complications: None apparent Components implanted: One small piece of DuraGen and 2 mL of Tisseel Disposition: To recovery room in good stable condition. OPERATIVE INDICATIONS The patient underwent surgical intervention yesterday and is postoperative day #1 today. He underwent laminectomy decompression at L3 4 for his severe spinal stenosis with lower extremity radiculopathy weakness and neurogenic claudication. Unfortunately at the time of the surgery he sustained an incidental durotomy. We attempted closure of the area and there is no obvious leakage at the time of closure. However overnight he developed significant in creasing pain and neurologic symptoms with paresthesias at his lower extremities today. He was not having new weakness in his lower extremities but his pain was clinically neurogenic pain and was excruciating for him. He is not having any benefit despite medications. He is not having headaches or nausea. His neurologic pain was unrelenting and I felt that there was new issue at the level around the laminectomy and durotomy. I felt that he was not making progress and was worsening. With his severity of the dural pain and symptoms I felt that his best option would be to be brought back to surgery for revision laminectomy and reevaluation of the dural tear and repair. We discussed this at length today with him and his . I answered all her questions best my ability and they elected to proceed with surgery today. We discussed the risk, patient's alternatives and benefits of surgery including but not limited to, risk of bleeding risk of infection, risk of need for further surgery, risk of decreased, loss of motion, loss of function, nerve damage, paralysis, heart attack, blindness and . OPERATIVE SUMMARY After discussing all the risks, patient alternatives and benefits at length, the patient elected to proceed with surgical intervention, signed informed consent, and presented for their procedure. The patient was seen and examined in the preoperative holding area and the surgical site was marked. The patient was given antibiotics and brought to the operating room. The patient was sedated and intubated by anesthesia in standard fashion. The airway was secured The patient was positioned on to the operating room table in a prone position on the appropriate frame with a Ryan frame and using a sling for his lower legs to allow some flexion at his hips which was well-padded and well molded. We were careful to pad any bony prominences and pressure points. We were careful to maintain the patient's cervical spine and good neutral alignment and position throughout. The patient was prepped and draped in a normal standard fashion. An appropriate timeout and keystone protocol performed. We were able to proceed with the surgery. The incision site was easily identifiable over L3 4 The incision was reestablished over L3 4 and extended cephalad and caudad at the midline longitudinally over the appropriate levels. I was easily able to reexpose the area over L3 4 removing the sutures that were placed yesterday times surgery Dissection was taken down subcutaneously to the level of the fascia which was split midline. Dissection was taken over the lamina and interspace at L3 4 which was easily identified. There is no active CSF leaking. There had been Tisseel and DuraGen over the area. I was able to remove the Tisseel and expose around the margins of the laminotomy. I was able to expose over the area and it was obvious that there was significant herniated nerve roots. At this point I was not able to get them reduced and I had to extend the laminectomy and decompression further. The laminectomy had been extended significantly. I protected the nerve is carefully and extended the laminectomy at L3 4 to get further decompression and exposure of the dura. There was significant evidence of some further stenosis which was removed to allow further decompression as well. With this completed there was some relaxation and I was able to expose portions of dura. I had to carefully tease away the dura as there was significant adhesions at the ligament of flavum. Ligamentum flavum had significant calcifications. I was able to tease away the dura from the undersurface of the ligamentum flavum to expose further dura and obtain her decompression and expose the margins of the durotomy. With this accomplished I was then able to bluntly and carefully reduce the nerve roots back into the tear and into the dural sheath. Great care was taken to be gentle with the nerve roots as much as possible in regards to reduce them back into the dura within the tear itself. With this accomplished there is no further extruded nerve roots. There was obvious leakage at this point. I was able to control leakage and establish the margins of the durotomy. The dural tear was possibly 1 cm in length at the right paramedian area at L3 4. With the margins exposed I was able to do a running stitch for a watertight closure with a 6-0 Prolene at the durotomy. As able get excellent reapproximation and closure at the site. There is some miniscule seepage through the needle holes but no significant active drainage. I felt we had a good closure. There is excellent decompression and there is no major leak. The margins were reapproximated well. The wound was copiously irrigated and suctioned dry as had been done periodically throughout the case. The bleeding was well-controlled. I then chose to use a use of DuraGen and cut it appropriately and it was sutured with the free ends of the suture from the dural repair and placed over the top of the dural repair. I also took a fat graft and placed on top of the DuraGen and tied down the DuraGen and fat graft over the repair. It seemed to have good seal. I placed some Tisseel over the area as well. There is no evidence of any further leakage. Good hemostasis maintained. The wound was copiously irrigated and suctioned dry. Good decompression and discectomy was noted. We were able to proceed with closure. The fascia was closed for a watertight closure. The subcuticular tissue was closed with absorbable suture. The wound was cleaned and dried and dressed with the appropriate dressing. The drapes were broken down. The patient was gently rolled back onto their hospital bed being careful to maintain their cervical spine and good neutral alignment and position. They were woken up by anesthesia, extubated, and brought to the recovery room in good stable condition. The patient will be admitted to the hospital for strict bedrest over the next 48 hours, observation and for appropriate postoperative care, medical management and monitoring. We will continue to follow them closely about the postoperative course.
[2022-12-30] MEDS ORDERED: MIDAZOLAM 2 MG/2 ML VIAL IVP ONE (21:52)
[2022-12-30 22:34] LABS: Glucose,Whole Blood 129 mg/dL (70-110)
[2022-12-30] MEDS: CHOLECALCIFEROL 25 MCG (1000 IU) TABLET PO SCH (23:15)
[2022-12-30] MEDS: MAGNESIUM OXIDE 400 MG TAB PO SCH (23:15)
[2022-12-30] MEDS: ATORVASTATIN 20 MG TAB PO SCH (23:15)
[2022-12-30] MEDS: NON FORMULARY DRUG (Tadalafil [Tadalafil] 5 MG Tablet) PO SCH (23:16)
[2022-12-30] MEDS: GABAPENTIN 300 MG CAP PO SCH (23:16)
[2022-12-30] MEDS: TAMSULOSIN 0.4 MG CAP.ER.24H PO SCH (23:16)
[2022-12-30 23:37] LABS: ABG HCO3 26 mmol/L (21-25); ABG Oxygen Saturation 96.3 % (94-97); ABG PCO2 44 mmHg (35-45); ABG PH 7.38 (7.35-7.45); ABG PO2 81 mmHg (83-108); ABG TCO2 28 mmol/L (19-24); Allen Test Performed? Yes
[2022-12-31] MEDS: HYDROcodone/APAP 10-325MG 1 EACH TAB PO PRN (00:18)
[2022-12-31] MEDS: METOPROLOL TARTRATE 50 MG TAB PO SCH ×3 (00:18→20:06)
--- NOTE | 2022-12-31 00:55 | P.CNPUL ---
History of Present Illness Consult date: 12/31/22 Requesting physician: Estefania Valdes Reason for consult: other (ICU management) Chief complaint: Lower back pain and lower extremity weakness History of present illness: I am seeing this patient in new consultation today 12/31/2022 in the intensive care unit as he is status postoperative day #2 following a L3 to L4 laminectomy decompression and fusion and postoperative day #1 following a dural tear repair. Patient is a 72-year-old white male with past medical history significant for obstructive sleep apnea with home CPAP, hyperlipidemia, hypertension, previous CVA/TIA, osteoarthritis. Patient was reportedly having issues with lower extremity weakness and gait disturbances. Patient had an elective L3 to L4 laminectomy with decompression and fusion on December 29, there was a dural tear with herniated nerve roots noted at that time. Patient went back to surgery yesterday for dural tear repair. Postoperatively, the patient was confused and lethargic. He was placed on BiPAP with settings 16/8 and FiO2 35%. Currently, the patient is lying supine in bed, on 3 L/m nasal cannula, not in any acute distress. He is alert but confused, probably from anesthesia. ABGs postoperatively show a pO2 of 81, pCO2 44, pH of 7.38. This was done on 3 L per nasal cannula. Patient does state that he wears a nasal CPAP HS at home, however, he doesn't remember the settings. Patient's denies any sensation disturbances in his lower extremity. Lower extremity strength is intact. No headache or nausea. CBC preoperatively shows a WBC count of 17.7, hemoglobin 17.6, hematocrit 31.3, platelets 155. BMP preoperatively shows a sodium of 143, potassium 3.9, chloride 107, serum bicarbonate 23, BUN 18, creatinine 0.7, glucose 142. Normal saline is infusing at 75 mL per hour. Urine output is adequate. Patient is to remain on bedrest and supine overnight. SCDs are on. Pain is reportedly well controlled. Hemodynamically the patient is stable. Review of Systems REVIEW OF SYSTEMS: CONSTITUTIONAL: Denies any recent significant weight loss or weight gain. EYES: Denies change in vision. EARS, NOSE, MOUTH, THROAT: Denies headaches, denies sore throat. CARDIOVASCULAR: Denies chest pain, palpitations or syncopal episodes. RESPIRATORY: Denies shortness of breath, cough, congestion or hemoptysis. GASTROINTESTINAL: Denies change in appetite, abdominal pain, nausea and vomiting, or diarrhea GENITOURINARY: Denies hematuria, denies infections. MUSKULOSKELETAL: Denies pain, denies swelling. INTEGUMENTARY: Denies rash, denies eczema. NEUROLOGICAL: Denies recent memory loss, no recent seizure activity. PSYCHIATRIC: Denies anxiety, denies depression. 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 for-has never had any tx. for History of Any Multi-Drug Resistant Organisms: None Reported Past Surgical History: Joint Replacement, Orthopedic Surgery Additional Past Surgical History / Comment(s): LEFT KNEE arthroscopy, RIGHT ROTATOR CUFF, RIGHT HAND CTS, right hip arthroplasty, right thumb fusion, rohan cataracts removed Past Anesthesia/Blood Transfusion Reactions: No Reported Reaction Past Psychological History: No Psychological Hx Reported Smoking Status: Former smoker Past Alcohol Use History: None Reported, Rare Additional Past Alcohol Use History / Comment(s): quit smoking 12 yrs. ago, 1ppd, since age of 17, still might have an occasional cigar Past Drug Use History: None Reported - Past Family History Mother Family Medical History: No Reported History Medications and Allergies Home Medications Medication Instructions Recorded Confirmed Type Metoprolol Tartrate [Lopressor] 50 mg PO BID 12/08/13 12/29/22 History Simvastatin [Zocor] 40 mg PO HS 12/08/13 12/29/22 History Tamsulosin HCl [Flomax] 0.8 mg PO HS 12/08/13 12/29/22 History Aspirin EC [Ecotrin] 81 mg PO DAILY 06/21/17 12/29/22 History Cholecalciferol [Vitamin D3] 4,000 unit PO HS 06/21/17 12/29/22 History Magnesium Oxide [Luevano] 500 mg PO HS 06/21/17 12/29/22 History Losartan/Hydrochlorothiazide 1 tab PO DAILY 12/23/22 12/29/22 History [Losartan-Hctz 100-25 mg Tab] tadalafiL 5 mg PO HS 12/24/22 12/29/22 History HYDROcodone/APAP 5-325MG [[place] 1 tab PO Q6HR PRN 7 Days #28 tab 12/29/22 Rx 5-325] Allergies Allergy/AdvReac Type Severity Reaction Status Date / Time No Known Allergies Allergy Verified 12/30/22 17:12 Physical Exam Vitals: Vital Signs Temp Pulse Pulse Resp BP BP Pulse Ox 12/30/22 23:53 12/30/22 23:30 74 15 114/65 97 12/30/22 23:20 76 16 114/65 97 12/30/22 23:10 71 14 134/83 96 12/30/22 23:00 82 14 110/61 94 L 12/30/22 22:50 98.0 F 83 14 117/66 93 L 12/30/22 22:00 76 14 129/71 98 12/30/22 21:45 73 16 134/76 96 12/30/22 21:30 77 14 142/75 97 12/30/22 21:27 12/30/22 21:15 73 14 113/62 92 L 12/30/22 21:11 72 14 92/50 92 L 12/30/22 20:56 70 14 90/51 94 L 12/30/22 20:41 98.2 F 74 16 92/52 94 L 12/30/22 17:15 92 15 144/67 94 L 12/30/22 16:45 98.6 F 97 21 131/64 92 L 12/30/22 14:12 97 18 126/72 94 L 12/30/22 07:21 98.2 F 100 19 134/75 91 L 12/30/22 06:59 98.2 F 100 19 134/75 91 L 12/30/22 01:02 98.2 F 107 H 18 127/71 95 FiO2 12/30/22 23:53 30 12/30/22 23:30 12/30/22 23:20 12/30/22 23:10 12/30/22 23:00 3 12/30/22 22:50 35 12/30/22 22:00 35 12/30/22 21:45 35 12/30/22 21:30 35 12/30/22 21:27 35 12/30/22 21:15 35 12/30/22 21:11 35 12/30/22 20:56 12/30/22 20:41 12/30/22 17:15 12/30/22 16:45 12/30/22 14:12 12/30/22 07:21 12/30/22 06:59 12/30/22 01:02 Intake and Output 12/30/22 12/30/22 12/31/22 14:59 22:59 06:59 Intake Total 2601 75 Output Total 960 200 Balance 1641 -125 Intake: IV 1951 75 Sodium Chloride 0.9% 1, 75 000 ml @ 75 mls/hr IV . [id number] RISHI Rx#:[id number] Intake, IV Titration 650 Amount Sodium Chloride 0.9% 1, 600 000 ml @ 75 mls/hr IV . [id number] RISHI Rx#:[id number] ceFAZolin 2 gm In Sodium 50 Chloride 0.9% 50 ml @ 100 mls/hr IVPB Q8H RISHI Rx#: [id number] Output: Urine 760 200 Estimated Blood Loss 200 Other: Voiding Method Indwelling Catheter GENERAL EXAM: Alert, 72-year-old white male , comfortable in no apparent distress. HEAD: Normocephalic and atraumatic EYES: Normal reaction of pupils, equal size. NOSE: Clear with pink turbinates. THROAT: No erythema or exudates. NECK: No masses, no JVD. CHEST: No chest wall deformity. LUNGS: Equal air entry with no crackles, wheeze, rhonchi or dullness. On 3 L per minute nasal cannula. BiPAP is currently on standby. No conversational dyspnea or accessory muscle use.. CVS: S1 and S2 normal with no audible murmur, regular rhythm. No extra heart sounds ABDOMEN: Obese abdomen, no hepatosplenomegaly, active bowel sounds, no guarding or rigidity. SPINE: Postsurgical site incision clean, dry, approximated SKIN: No rashes CENTRAL NERVOUS SYSTEM: Alert, Oriented to person and time. Not place. No focal deficits, strength in all 4 extremities grade 5/5. No sensation loss. EXTREMITIES: There is no peripheral edema, clubbing, or cyanosis. Peripheral pulses are intact. Results - Laboratory Findings CBC and BMP: 12/31/22 05:33 12/31/22 05:33 ABG ABG pH 7.38 (7.35-7.45) 12/30/22 23:31 ABG pCO2 44 mmHg (35-45) 12/30/22 23:31 ABG pO2 81 mmHg (83-108) L 12/30/22 23:31 ABG O2 Saturation 96.3 % (94-97) 12/30/22 23:31 Abnormal lab findings: Abnormal Labs 12/30/22 12/30/22 12/30/22 07:24 07:24 22:32 WBC 17.73 H RBC 5.77 H Hgb 17.6 H Hct 51.3 H Neutrophils # 16.78 H Lymphocytes # 0.69 L Monocytes # 0.13 L Eosinophils # 0 L ABG pO2 ABG HCO3 ABG Total CO2 Anion Gap 12.60 H BUN/Creatinine Ratio 26.57 H Glucose 142 H POC Glucose (mg/dL) 129 H 12/30/22 23:31 WBC RBC Hgb Hct Neutrophils # Lymphocytes # Monocytes # Eosinophils # ABG pO2 81 L ABG HCO3 26 H ABG Total CO2 28 H Anion Gap BUN/Creatinine Ratio Glucose POC Glucose (mg/dL) Assessment and Plan Assessment: Status postoperative day #2 following a L3 to L4 laminectomy decompression with dural tear noted intraoperatively Status postoperative day #1 following a dural tear repair Lumbar stenosis L4 to L5 with symptoms of neurogenic claudication Leukocytosis, reactive to surgery Obstructive sleep apnea, with home nasal CPAP Benign essential hypertension Hyperlipidemia History of CVA/TIA Chronic ongoing tobacco dependence, occasionally smokes cigars Obesity, with a BMI of 33.9 kg/m Plan: Patient will be monitored in the intensive care unit at least overnight. Patient was intially on BIPAP with settings 16/8 and fio2 35% during the immed iate postoperative period. Currently, he is more alert and his confusion is improving. ABGs done on nasal cannula 3 L/m; PaO2 of 81, pCO2 of 44, pH of 7.38. Patient does have obstructive sleep apnea. He is going to wear CPAP with pressure of 10 at bedtime He is currently on bedrest and supine per surgical services SCDs are on. DVT prophylaxis per surgery. Protonix for GI prophylaxis. Neuro checks per protocol We will continue to follow while the patient remains in the intensive care unit. I have personally seen and examined the patient, performed the documentation and the assessment and plan as written. Number of minutes spent on the visit:20 Is a joint evaluation that was done along with a nurse practitioner. His evaluation was on a more than 30 minutes. The patient was brought into the intensive care unit postoperative the patient was having some respiratory insufficiency after having a prolonged spine surgery. The patient was placed on a BiPAP at a pressure of 16/8 cm of water. The blood gases are adequate. His obstructive sleep apnea and utilizes a home cpap unit. his acidosis is stable for now. he has no signs of any respiratory distress. he was taken off the b ipap this morning and is currently on oxygen at 3 l. no respiratory difficulties. no history of any chronic lung disease. we'll obtain a baseline chest x-ray. the patient remains on bedrest following his repair of a dural tear. he remains on iv rocephin. electrolytes are all within normal limits. white cell cause a 23 with a hemoglobin of 15.8. hemodynamically, his blood pressure was soft and he was given iv fluids and the patient remains on normal saline at rate of 75 ml an hour. his blood pressure is improved considerably. he has compression devices lower extremities. spine surgery is following his surgical wound and neurologic functions in his lower extremities. no headaches. no altered mentation. pain control is with iv dilaudid and norco by mouth. Time with Patient: Greater than 30
[2022-12-31] MEDS: HYDROmorphone 1 MG/ML 1 ML SYRINGE IVP PRN ×3 (06:33→21:45)
[2022-12-31] MEDS: PANTOPRAZOLE 40 MG TABLET PO SCH (06:51)
--- NOTE | 2022-12-31 08:48 | P.CONS ---
History of Present Illness - Reason for Consult Consult date: 12/30/22 medical management Requesting physician: Estefania Valdes - Chief Complaint Back pain difficulty with ambulation - History of Present Illness This is a 72-year-old male patient of Dr. Macdonald who presented for an elective laminectomy with Dr. Valdes on 12/29/2022. Past medical history ongoing lower extremity pain and difficulty with prolonged ambulation with failed conservative management. Additional medical history includes hypertension, hyperlipidemia, BPH and cigar smoker. On 12/29/2022 patient underwent laminectomy and decompression of L3 to L4. Postoperatively patient complaining of severe symptoms to lower back towards his hips bilaterally. Patient reports that this is new and worse than before and does not improve with pain medications patient was reexamined by Dr. bateman plans for repeat surgery for revision of laminectomy decompression evaluation concerns of possible entrapment of herniated nerve root. At this time patient is lying in bed complaining of pain with at bedside. Home meds have been resumed to orthopedic services lab are currently pending. 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 for History of Any Multi-Drug Resistant Organisms: None Reported Past Surgical History: Joint Replacement, Orthopedic Surgery Additional Past Surgical History / Comment(s): LEFT KNEE arthroscopy, RIGHT ROTATOR CUFF, RIGHT HAND CTS, right hip arthroplasty, right thumb fusion, rohan cataracts removed Past Anesthesia/Blood Transfusion Reactions: No Reported Reaction Past Psychological History: No Psychological Hx Reported Smoking Status: Former smoker Past Alcohol Use History: None Reported, Rare Additional Past Alcohol Use History / Comment(s): quit smoking 12 yrs. ago, 1ppd, since age of 17, still might have an occasional cigar Past Drug Use History: None Reported - Past Family History Mother Family Medical History: No Reported History Medications and Allergies Home Medications Medication Instructions Recorded Confirmed Type Metoprolol Tartrate [Lopressor] 50 mg PO BID 12/08/13 12/29/22 History Simvastatin [Zocor] 40 mg PO HS 12/08/13 12/29/22 History Tamsulosin HCl [Flomax] 0.8 mg PO HS 12/08/13 12/29/22 History Aspirin EC [Ecotrin] 81 mg PO DAILY 06/21/17 12/29/22 History Cholecalciferol [Vitamin D3] 4,000 unit PO HS 06/21/17 12/29/22 History Magnesium Oxide [Luevano] 500 mg PO HS 06/21/17 12/29/22 History Losartan/Hydrochlorothiazide 1 tab PO DAILY 12/23/22 12/29/22 History [Losartan-Hctz 100-25 mg Tab] tadalafiL 5 mg PO HS 12/24/22 12/29/22 History HYDROcodone/APAP 5-325MG [[place] 1 tab PO Q6HR PRN 7 Days #28 tab 12/29/22 Rx 5-325] Allergies Allergy/AdvReac Type Severity Reaction Status Date / Time No Known Allergies Allergy Verified 12/29/22 12:14 Physical Exam Vitals: Vital Signs Temp Pulse Resp BP Pulse Ox 12/30/22 07:21 98.2 F 100 19 134/75 91 L 12/30/22 06:59 98.2 F 100 19 134/75 91 L 12/30/22 01:02 98.2 F 107 H 18 127/71 95 12/29/22 19:00 97.4 F L 68 18 118/76 97 12/29/22 18:18 67 16 104/52 94 L 12/29/22 18:03 66 16 106/63 93 L 12/29/22 17:48 69 16 103/54 95 12/29/22 17:33 76 16 108/60 100 12/29/22 17:18 97.6 F 81 16 97/56 100 12/29/22 12:30 97.7 F 66 14 117/60 96 Intake and Output 12/29/22 12/30/22 12/30/22 22:59 06:59 14:59 Intake Total 900 Output Total 150 424 Balance 750 -424 Intake: IV 900 Output: Urine 424 Estimated Blood Loss 150 Other: Weight 113.4 kg Head normocephalic Neck supple Lungs clear to auscultation bilaterally no wheezing or crackles Heart regular rate and rhythm S1-S2, no rub or gallop Abdomen is soft nontender nondistended positive bowel sounds no hepatosplenomegaly Extremities no edema Neuro alert and orientated to 3 Assessment and Plan Assessment: 1. Status post laminectomy and decompression of L3 and L4 on 12/29/2022 2. Severe pain postoperatively plans for revision of laminectomy due to possible entrapment of herniated nerve root at durotomy site on 12/30/2022 3. History of TIA in 2009 with no residual effects 4. History of hyperlipidemia 5. History of osteoarthritis 6. History of essential hypertension 7. History of BPH 8. Ex-smoker still reports he smokes a cigar occasionally Thank you for this consultation we'll continue to follow patient closely throughout stay Repeat labs ordered Time with Patient: Greater than 30 (Greater than 60% of the total time spent in counseling and coordination of care)
[2022-12-31] MEDS: ASPIRIN 81 MG PO SCH (08:56)
[2022-12-31] MEDS: methylPREDNISolone SOD SUCCI 125 MG/2 ML VIAL IV SCH ×2 (08:58→20:06)
[2022-12-31] MEDS: GABAPENTIN 300 MG CAP PO SCH ×3 (08:59→20:06)
[2022-12-31] MEDS: LOSARTAN-HCTZ 50-12.5 MG 1 EACH TAB PO SCH (08:59)
[2022-12-31 09:08] LABS: HCT 46.4 % (39.6-50.0); HGB 15.8 d/dL (13.0-17.0); MCH 30.3 pg (27.0-32.0); MCHC 34.1 d/dL (32.0-37.0); MCV 88.9 FL (80.0-97.0); Mean Platelet Volume 9.7 FL (9.5-12.2); NRBC Per 100 WBC 0 X 10*3/uL (0.00-0.01); Platelet Count 163 X 10*3/uL (140-440); RBC 5.22 X 10*6/uL (4.40-5.60); RDW 12.6 % (11.5-14.5); WBC 23.88 X 10*3/uL (4.50-10.00)
--- NOTE | 2022-12-31 09:09 | P.PN ---
Progress Note - Text Progress Note Date: 12/31/22 Orthopedic Spine Patient is a pleasant 72-year-old male who is seen at the bedside following L3-4 revision laminectomy and decompression with repair of incidental durotomy with repositioning reduction of herniated nerve roots performed yesterday, 12/30/2022. He is status post L3-4 laminectomy and decompression performed on 12/29/2022. Patient states he is having severe pain in his lower extremities yesterday prior to surgical intervention with new onset numbness. He states he is no longer experiencing the numbness he was postoperatively on Tuesday. He states this morning his lower extremity leg pain has significantly improved. He is no longer experiencing the severe pain was prior to his revision laminectomy. He was having some difficulty coming out of anesthesia postoperatively. He is currently in the ICU. He is very awake and alert and answering questions appropriately. He is currently lying flat in bed. He denies any headaches. His Cheek catheter is intact. He has no new complaints at the bedside. Currently does not complain of nausea, vomiting, fever, or chills. Patient states pain has been adequately controlled. Patient is being seen in exam by his primary care provider for his other medical diagnoses including hyperlipidemia, hypertension, history of CVA/TIA, and prostate disorder. Physical Exam Laminectomy/Discectomy: Status post surgical day number 1 Patient is awake, alert, and oriented 3 Vital signs appear stable To quit chest excursion with deep inspiration and expiration Abdomen soft nontender Dorsiflexion, plantarflexion, and extensor hallucis longus positive sustained bilaterally No signs or symptoms of DVT; no calf pain Patient is currently lying flat in bed without the head elevated Assessment: L3-4 revision laminectomy and decompression with repair of incidental durotomy with repositioning reduction of herniated nerve roots performed yesterday, 12/30/2022 Status post L3-4 laminectomy and decompression performed on 12/29/2022 Incidental durotomy during surgical intervention of laminectomy of L3-4 on 12/29/2022 Persistent dural tear Lower extremity numbness, improved postoperatively Hyperlipidemia Hypertension History of CVA/TIA Prostate disorder. Plan: 1. Patient is known to have sustained an incidental dural tear during surgical intervention on 12/29/2022. He underwent L3-4 revision laminectomy and d ecompression with repair of incidental durotomy with repositioning reduction of herniated nerve roots performed yesterday, 12/30/2022. Patient was strictly remain lying flat in bed without the head elevated. He may lay on his side or be log rolled but must remain flat. He may elevate his lower extremities. It was discussed in detail with the patient and nursing that he must remain flat on his back until at least Tuesday evening. Currently, the patient is not experiencing any headaches. On Tuesday evening at the earliest, we'll plan to sit the patient upright at approximate 45 in bed. If he experiences any spinal headaches at that time, we will return him to a completely flat supine position for at least another 24 hours. If he does not experiencing any headaches, we will begin to increase his mobility and ambulation. We will continue to follow patient closely. 2. Continue pain control with IV and oral medications 3. Patient can continue be monitor ICU. He may transfer out of the ICU when medically stable 4. Patient will continue be seen in exam by medicine for his other medical diagnoses 5. Patient may follow-up with Aaron Kumar PA-C or Dr. Leoncio Valdes at [facility] in 2 weeks following discharge.
[2022-12-31 09:12] LABS: ALT 23 U/L (10-49); AST 35 U/L (14-35); Albumin 3.6 d/dL (3.8-4.9); Albumin/Globulin Ratio 1.89 Ratio (1.60-3.17); Alkaline Phosphatase 60 U/L (41-126); BUN/Creat Ratio 29.88 Ratio (12.00-20.00); Blood Urea Nitrogen 23.9 mg/dL (9.0-27.0); Carbon Dioxide 30.6 mmol/L (21.6-31.8); Chloride 106 mmol/L (96-109); Globulin 1.9 d/dL (1.6-3.3); Glucose 136 mg/dL (70-110); Potassium 4.1 mmol/L (3.5-5.5); Sodium 141 mmol/L (135-145); Total Bilirubin 0.6 mg/dL (0.3-1.2); Total Protein 5.5 d/dL (6.2-8.2)
[2022-12-31 09:44] LABS: Basophils # (A) 0.03 X 10*3/uL (0.00-0.10); Basophils % (A) 0.1 %; Eosinophils # (A) 0 X 10*3/uL (0.04-0.35); Eosinophils % (A) 0 %; Lymphocytes # (A) 0.88 X 10*3/uL (0.90-5.00); Lymphocytes % (A) 3.7 %; Monocytes # (A) 0.74 X 10*3/uL (0.20-1.00); Monocytes % (A) 3.1 %; Neutrophils # (A) 22.07 X 10*3/uL (1.80-7.70); Neutrophils % (A) 92.4 %; RBC Morphology Normal (Normal)
--- NOTE | 2022-12-31 10:05 | XR ---
EXAMINATION TYPE: XR chest 1V portable DATE OF EXAM: 12/31/2022 10:00 AM COMPARISON: Chest radiographs from 12/20/2022 TECHNIQUE: XR chest 1V portable Portable AP radiograph of the chest. CLINICAL INDICATION:Male, 72 years old with history of sob ; FINDINGS: Lungs/Pleura: There is no evidence of pleural effusion, focal consolidation, or pneumothorax. Chroni c senescent parenchymal changes. Chronic elevation of the right hemidiaphragm. Pulmonary vascularity: Unremarkable. Heart/mediastinum: Cardiomediastinal silhouette is unremarkable. Atherosclerotic calcifications are seen in the aorta. Musculoskeletal: No acute osseous pathology. Degenerative changes of the thoracic spine. IMPRESSION: Chronic changes without acute pulmonary process. No significant change from prior.
--- NOTE | 2022-12-31 10:08 | P.PN ---
Subjective Progress Note Date: 12/31/22 This is a 72-year-old male patient of Dr. Macdonald who presented for an elective laminectomy with Dr. Valdes on 12/29/2022. Past medical history ongoing lower extremity pain and difficulty with prolonged ambulation with failed conservative management. Additional medical history includes hypertension, hyperlipidemia, BPH and cigar smoker. On 12/29/2022 patient underwent laminectomy and decompression of L3 to L4. Postoperatively patient complaining of severe symptoms to lower back towards his hips bilaterally. Patient reports that this is new and worse than before and does not improve with pain medications patient was reexamined by Dr. bateman plans for repeat surgery for revision of laminectomy decompression evaluation concerns of possible entrapment of herniated nerve root. At this time patient is lying in bed complaining of pain with at bedside. Home meds have been resumed to orthopedic services lab are currently pending. Current vital signs temp 98.2, heart rate 100, respiratory rate 19, blood pressure 134/75 with pulse ox of 91% on room air On 12/31/2022 patient is alert and oriented 3 patient underwent L3 to L4 revision laminectomy and decompression repair of incidental dermatotomy yesterday on 12/30/2022. Patient's pain improved significantly postoperatively patient was transferred to the ICU for closer monitoring. Patient did require BiPAP. At this time patient is lying comfortably in bed patient denies pain. Current vital signs temp 97.9, heart rate 77, respiratory rate 18, blood pressure 0124/59 with pulse ox of 97% on 3 L. White blood cell count elevated 23.88 the patient is on steroids. Denies any acute complaints. No fever Objective - Vital Signs Vital signs: Vital Signs Temp 97.9 F 12/31/22 08:00 Pulse 73 12/31/22 09:00 Resp 18 12/31/22 09:00 BP 116/62 12/31/22 09:00 Pulse Ox 97 12/31/22 09:00 FiO2 30 12/31/22 04:00 Intake & Output 12/30/22 12/31/22 12/31/22 18:59 06:59 18:59 Intake Total 2351 1175 320 Output Total 510 1725 150 Balance 1841 -550 170 Weight 126 kg Intake: IV 1701 975 150 Sodium Chloride 0.9% 1, 675 150 000 ml @ 75 mls/hr IV . [id number] [facility] Rx#:[id number] Sodium Chloride 0.9% 50 50 ml @ 0 mls/hr IV .STK-MED ONE with ceFAZolin 2,000 mg Rx#:[id number] Intake, IV Titration 650 50 Amount Sodium Chloride 0.9% 1, 600 000 ml @ 75 mls/hr IV . [id number] [facility] Rx#:[id number] ceFAZolin 2 gm In Sodium 50 Chloride 0.9% 50 ml @ 100 mls/hr IVPB Q8H [facility] Rx#: [id number] cefTRIAXone 2 gm In 50 Sodium Chloride 0.9% 50 ml @ 100 mls/hr IVPB Q12HR [facility] Rx#:[id number] Oral 200 120 Output: Urine 510 1525 150 Estimated Blood Loss 200 Other: Voiding Method Indwelling Catheter - Exam Head normocephalic Neck supple Lungs clear to auscultation bilaterally no wheezing or crackles Heart regular rate and rhythm S1-S2, no rub or gallop Abdomen is soft nontender nondistended positive bowel sounds no hepatosplenomega ly Extremities no edema Neuro alert and orientated to 3 - Labs CBC & Chem 7: 12/31/22 05:33 12/31/22 05:33 Labs: Abnormal Lab Results - Last 24 Hours (Table) 12/30/22 12/30/22 12/30/22 Range/Units 07:24 07:24 22:32 WBC 17.73 H (4.50-10.00) X 10*3/uL RBC 5.77 H (4.40-5.60) X 10*6/uL Hgb 17.6 H (13.0-17.0) d/dL Hct 51.3 H (39.6-50.0) % Neutrophils # 16.78 H (1.80-7.70) X 10*3/uL Lymphocytes # 0.69 L (0.90-5.00) X 10*3/uL Monocytes # 0.13 L (0.20-1.00) X 10*3/uL Eosinophils # 0 L (0.04-0.35) X 10*3/uL ABG pO2 (83-108) mmHg ABG HCO3 (21-25) mmol/L ABG Total CO2 (19-24) mmol/L Anion Gap 12.60 H (4.00-12.00) mmol/L BUN/Creatinine Ratio 26.57 H (12.00-20.00) Ratio Glucose 142 H (70-110) mg/dL POC Glucose (mg/dL) 129 H (70-110) mg/dL Total Protein (6.2-8.2) d/dL Albumin (3.8-4.9) d/dL 12/30/22 12/31/22 12/31/22 Range/Units 23:31 05:33 05:33 WBC 23.88 H (4.50-10.00) X 10*3/uL RBC (4.40-5.60) X 10*6/uL Hgb (13.0-17.0) d/dL Hct (39.6-50.0) % Neutrophils # 22.07 H (1.80-7.70) X 10*3/uL Lymphocytes # 0.88 L (0.90-5.00) X 10*3/uL Monocytes # (0.20-1.00) X 10*3/uL Eosinophils # 0 L (0.04-0.35) X 10*3/uL ABG pO2 81 L (83-108) mmHg ABG HCO3 26 H (21-25) mmol/L ABG Total CO2 28 H (19-24) mmol/L Anion Gap (4.00-12.00) mmol/L BUN/Creatinine Ratio 29.88 H (12.00-20.00) Ratio Glucose 136 H (70-110) mg/dL POC Glucose (mg/dL) (70-110) mg/dL Total Protein 5.5 L (6.2-8.2) d/dL Albumin 3.6 L (3.8-4.9) d/dL Assessment and Plan Assessment: 1. Status post laminectomy and decompression of L3 and L4 on 12/29/2022 2. Severe pain postoperatively plans for revision of laminectomy due to possible entrapment of herniated nerve root at durotomy site on 12/30/2022. Status post surgical repair on 12/30/2022 completed. Pain resolved 3. History of TIA in 2009 with no residual effects 4. History of hyperlipidemia 5. History of osteoarthritis 6. History of essential hypertension 7. History of BPH 8. Ex-smoker still reports he smokes a cigar occasionally Thank you for this consultation we'll continue to follow patient closely throughout stay Patient was transferred to ICU postoperatively on 12/30/2022 patient was on BiPAP Repeat labs ordered
[2022-12-31] MEDS: SODIUM CHLORIDE 0.9% 1,000 ML IV SCH ×4 (11:37→22:26)
[2022-12-31] MEDS: ATORVASTATIN 20 MG TAB PO SCH (20:06)
[2022-12-31] MEDS: MAGNESIUM OXIDE 400 MG TAB PO SCH (20:06)
[2022-12-31] MEDS: CHOLECALCIFEROL 25 MCG (1000 IU) TABLET PO SCH (20:06)
[2022-12-31] MEDS: TAMSULOSIN 0.4 MG CAP.ER.24H PO SCH (20:06)
[2022-12-31] MEDS: NON FORMULARY DRUG (Tadalafil [Tadalafil] 5 MG Tablet) PO SCH (20:47)
[2023-01-01] MEDS: HYDROcodone/APAP 10-325MG 1 EACH TAB PO PRN ×2 (05:30→13:52)
[2023-01-01] MEDS: PANTOPRAZOLE 40 MG TABLET PO SCH (06:37)
[2023-01-01] MEDS: METOPROLOL TARTRATE 50 MG TAB PO SCH ×2 (08:54→21:24)
[2023-01-01] MEDS: ASPIRIN 81 MG PO SCH (08:54)
[2023-01-01] MEDS: GABAPENTIN 300 MG CAP PO SCH ×3 (08:54→21:24)
[2023-01-01] MEDS: LOSARTAN-HCTZ 50-12.5 MG 1 EACH TAB PO SCH (09:25)
--- NOTE | 2023-01-01 09:35 | P.PN ---
Progress Note - Text Progress Note Date: 01/01/23 Orthopedic Spine: History of present illness: Patient is a pleasant 72-year-old male who is seen at the bedside following L3-4 revision laminectomy and decompression with repair of incidental durotomy with repositioning reduction of herniated nerve roots performed on 12/30/2022. He is status post L3-4 laminectomy and decompression performed on 12/29/2022. Patient states he is having severe pain in his lower extremities yesterday prior to surgical intervention with new onset numbness. He states he is no longer experiencing the numbness he was postoperatively on Tuesday. He states this morning his lower extremity leg pain has significantly improved. He is no longer experiencing the severe pain was prior to his revision laminectomy. He continues to lie flat in bed. He was transferred out of the ICU to [facility]. He is awake and answering questions appropriately. He denies any headaches. His Cheek catheter is intact. He has no new complaints at the bedside. Currently does not complain of nausea, vomiting, fever, or chills. Patient states pain has been adequately controlled. Patient is being seen in exam by his primary care provider for his other medical diagnoses including hyperlipidemia, hypertension, history of CVA/TIA, and prostate disorder. Physical Exam Laminectomy/Discectomy: Status post surgical day number 2 Patient is awake, alert, and oriented 3 Vital signs appear stable To quit chest excursion with deep inspiration and expiration Abdomen soft nontender Dorsiflexion, plantarflexion, and extensor hallucis longus positive sustained bilaterally No signs or symptoms of DVT; no calf pain Patient is currently lying flat in bed without the head elevated Assessment: L3-4 revision laminectomy and decompression with repair of incidental durotomy with repositioning reduction of herniated nerve roots performed yesterday, 12/30/2022 Status post L3-4 laminectomy and decompression performed on 12/29/2022 Incidental durotomy during surgical intervention of laminectomy of L3-4 on 12/29/2022 Persistent dural tear Lower extremity numbness, improved postoperatively Hyperlipidemia Hypertension History of CVA/TIA Prostate disorder. Plan: 1. Patient is known to have sustained an incidental dural tear during surgical intervention on 12/29/2022. He underwent L3-4 revision laminectomy and decompression with repair of incidental durotomy with repositioning reduction of herniated nerve roots performed on 12/30/2022. Patient will continue to strictly remain lying flat in bed without the head elevated. He may lay on his side or be log rolled but must remain flat. He may elevate his lower extremities. It was discussed in detail with the patient and nursing that he must remain flat on his back until at least Tuesday evening. We discussed he may be set up at 45 after dinner tonight at approximately 6:00 PM to assess if he has any spinal headaches. Currently, the patient is not experiencing any headaches. If he experiences any spinal headaches at that time, we will return him to a completely flat supine position for at least another 24 hours. If he does not experiencing any headaches, we will begin to increase his mobility and ambulation. We will continue to follow patient closely. 2. Continue pain control with IV and oral medications 3. Patient will continue be seen in exam by medicine for his other medical diagnoses 4. Patient may follow-up with Aaron Kumar PA-C or Dr. Leoncio Valdes at [facility] in 2 weeks following discharge.
--- NOTE | 2023-01-01 12:28 | P.PN ---
Subjective Progress Note Date: 01/01/23 I am seeing this patient in new consultation today 12/31/2022 in the intensive care unit as he is status postoperative day #2 following a L3 to L4 laminectomy decompression and fusion and postoperative day #1 following a dural tear repair. Patient is a 72-year-old white male with past medical history significant for obstructive sleep apnea with home CPAP, hyperlipidemia, hypertension, previous CVA/TIA, osteoarthritis. Patient was reportedly having issues with lower extremity weakness and gait disturbances. Patient had an elective L3 to L4 laminectomy with decompression and fusion on December 29, there was a dural tear with herniated nerve roots noted at that time. Patient went back to surgery yesterday for dural tear repair. Postoperatively, the patient was confused and lethargic. He was placed on BiPAP with settings 16/8 and FiO2 35%. Currently, the patient is lying supine in bed, on 3 L/m nasal cannula, not in any acute distress. He is alert but confused, probably from anesthesia. ABGs postoperatively show a pO2 of 81, pCO2 44, pH of 7.38. This was done on 3 L per nasal cannula. Patient does state that he wears a nasal CPAP HS at home, however, he doesn't remember the settings. Patient's denies any sensation disturbances in his lower extremity. Lower extremity strength is intact. No headache or nausea. CBC preoperatively shows a WBC count of 17.7, hemoglobin 17.6, hematocrit 31.3, platelets 155. BMP preoperatively shows a sodium of 143, potassium 3.9, chloride 107, serum bicarbonate 23, BUN 18, creatinine 0.7, glucose 142. Normal saline is infusing at 75 mL per hour. Urine output is adequate. Patient is to remain on bedrest and supine overnight. SCDs are on. Pain is reportedly well controlled. Hemodynamically the patient is stable. 01/01/2023, no new complaints. Pain is under better control and the patient is postop following his spine surgery which involved initial L3-L4 laminectomy and decompression and fusion and subsequent dural tear repair. The patient is postop day #2 following his dural tear repair and the patient remains on bedrest. No respiratory difficulties. Utilizing his CPAP. No bowel movement activity yet. No nausea or vomiting. No abdominal distention. Using the incentive spirometer. Denies having any headache. No altered mentation. No other complaints otherwise. Objective - Vital Signs Vital signs: Vital Signs Temp 98.6 F 01/01/23 07:40 Pulse 79 01/01/23 07:40 Resp 18 01/01/23 07:40 BP 125/67 01/01/23 07:40 Pulse Ox 95 01/01/23 07:40 FiO2 30 12/31/22 04:00 Intake & Output 12/31/22 01/01/23 01/01/23 18:59 06:59 18:59 Intake Total 1415 125 Output Total 1435 500 Balance -20 -375 Intake: IV 825 75 Sodium Chloride 0.9% 1, 825 75 000 ml @ 75 mls/hr IV . [id number] [facility] Rx#:[id number] Intake, IV Titration 50 Amount cefTRIAXone 2 gm In 50 Sodium Chloride 0.9% 50 ml @ 100 mls/hr IVPB Q12HR [facility] Rx#:[id number] Oral 540 50 Output: Urine 1435 500 Other: Voiding Method Indwelling Catheter Indwelling Catheter - Exam GENERAL EXAM: Alert, 72-year-old white male , comfortable in no apparent distress. HEAD: Normocephalic and atraumatic EYES: Normal reaction of pupils, equal size. NOSE: Clear with pink turbinates. THROAT: No erythema or exudates. NECK: No masses, no JVD. CHEST: No chest wall deformity. LUNGS: Equal air entry with no crackles, wheeze, rhonchi or dullness. On 3 L per minute nasal cannula. BiPAP is currently on standby. No conversational dyspnea or accessory muscle use.. CVS: S1 and S2 normal with no audible murmur, regular rhythm. No extra heart so unds ABDOMEN: Obese abdomen, no hepatosplenomegaly, active bowel sounds, no guarding or rigidity. SPINE: Postsurgical site incision clean, dry, approximated SKIN: No rashes CENTRAL NERVOUS SYSTEM: Alert, Oriented to person and time. Not place. No focal deficits, strength in all 4 extremities grade 5/5. No sensation loss. EXTREMITIES: There is no peripheral edema, clubbing, or cyanosis. Peripheral pulses are intact. - Labs CBC & Chem 7: 12/31/22 05:33 12/31/22 05:33 Assessment and Plan Assessment: Status postoperative day # 3 following a L3 to L4 laminectomy decompression with dural tear noted intraoperatively Status postoperative day # 2 following a dural tear repair , no headaches, the patient remains on a bedrest. Lumbar stenosis L4 to L5 with symptoms of neurogenic claudication Leukocytosis, reactive to surgery, the whites needs to be monitored. Obstructive sleep apnea, with home nasal CPAP Benign essential hypertension Hyperlipidemia History of CVA/TIA Chronic ongoing tobacco dependence, occasionally smokes cigars Obesity, with a BMI of 33.9 kg/m Plan: Keep the patient on January Patient is utilizing his own CPAP machine from home Pulmonary status is stable Monitor CBC and the white count Continue using the incentive spirometer Pain control IV fluids with normal saline at the rate of 75 mL an hour Dulcolax suppositories for bowel movement activity We'll follow spine surgery is following his surgical wound and neurologic functions in his lower extremities. no headaches. no altered mentation. pain control is with iv dilaudid and norco by mouth.
[2023-01-01] MEDS: methylPREDNISolone SOD SUCCI 125 MG/2 ML VIAL IV SCH ×2 (13:51→21:23)
[2023-01-01] MEDS: SODIUM CHLORIDE 0.9% 1,000 ML IV SCH ×2 (13:51→15:09)
[2023-01-01] MEDS: HYDROmorphone 1 MG/ML 1 ML SYRINGE IVP PRN ×2 (16:51→21:25)
--- NOTE | 2023-01-01 17:01 | P.PN ---
Subjective Progress Note Date: 01/01/23 This is a 72-year-old male patient of Dr. Macdonald who presented for an elective laminectomy with Dr. Valdes on 12/29/2022. Past medical history ongoing lower extremity pain and difficulty with prolonged ambulation with failed conservative management. Additional medical history includes hypertension, hyperlipidemia, BPH and cigar smoker. On 12/29/2022 patient underwent laminectomy and decompression of L3 to L4. Postoperatively patient complaining of severe symptoms to lower back towards his hips bilaterally. Patient reports that this is new and worse than before and does not improve with pain medications patient was reexamined by Dr. bateman plans for repeat surgery for revision of laminectomy decompression evaluation concerns of possible entrapment of herniated nerve root. At this time patient is lying in bed complaining of pain with at bedside. Home meds have been resumed to orthopedic services lab are currently pending. Current vital signs temp 98.2, heart rate 100, respiratory rate 19, blood pressure 134/75 with pulse ox of 91% on room air On 12/31/2022 patient is alert and oriented 3 patient underwent L3 to L4 revision laminectomy and decompression repair of incidental dermatotomy yesterday on 12/30/2022. Patient's pain improved significantly postoperatively patient was transferred to the ICU for closer monitoring. Patient did require BiPAP. At this time patient is lying comfortably in bed patient denies pain. Current vital signs temp 97.9, heart rate 77, respiratory rate 18, blood pressure 0124/59 with pulse ox of 97% on 3 L. White blood cell count elevated 23.88 the patient is on steroids. Denies any acute complaints. No fever. On 01/01/2023 patient was seen and examined on the medical floor he is alert and oriented 3 in no apparent distress there is no fever or chills no headache or dizziness no chest pain no shortness of breath no cough no nausea or vomiting no abdominal pain no diarrhea and no urinary symptoms. Pain is reasonably well controlled patient is maintained on oxygen via nasal. cannula white blood count is elevated at 23.8 however this is most likely related to steroid use. for DVT prophylaxis SCD stockings. Objective - Vital Signs Vital signs: Vital Signs Temp 98.6 F 01/01/23 07:40 Pulse 79 01/01/23 07:40 Resp 18 01/01/23 07:40 BP 125/67 01/01/23 07:40 Pulse Ox 95 01/01/23 07:40 FiO2 30 12/31/22 04:00 Intake & Output 12/31/22 01/01/23 01/01/23 18:59 06:59 18:59 Intake Total 1415 125 Output Total 1435 500 Balance -20 -375 Intake: IV 825 75 Sodium Chloride 0.9% 1, 825 75 000 ml @ 75 mls/hr IV . [id number] [facility] Rx#:[id number] Intake, IV Titration 50 Amount cefTRIAXone 2 gm In 50 Sodium Chloride 0.9% 50 ml @ 100 mls/hr IVPB Q12HR [facility] Rx#:[id number] Oral 540 50 Output: Urine 1435 500 Other: Voiding Method Indwelling Catheter Indwelling Catheter - Exam Head normocephalic Neck supple Lungs clear to auscultation bilaterally no wheezing or crackles Heart regular rate and rhythm S1-S2, no rub or gallop Abdomen is soft nontender nondistended positive bowel sounds no hepatosplenome pedro Extremities no edema Neuro alert and orientated to 3 - Labs CBC & Chem 7: 12/31/22 05:33 12/31/22 05:33 Assessment and Plan Assessment: 1. Status post laminectomy and decompression of L3 and L4 on 12/29/2022 2. Severe pain postoperatively plans for revision of laminectomy due to possible entrapment of herniated nerve root at durotomy site on 12/30/2022. Status post surgical repair on 12/30/2022 completed. Pain resolved 3. History of TIA in 2009 with no residual effects 4. History of hyperlipidemia 5. History of osteoarthritis 6. History of essential hypertension 7. History of BPH 8. Ex-smoker still reports he smokes a cigar occasionally Thank you for this consultation we'll continue to follow patient closely throughout stay Patient was transferred to ICU postoperatively on 12/30/2022 patient was on BiPAP Repeat labs ordered
[2023-01-01] MEDS: CHOLECALCIFEROL 25 MCG (1000 IU) TABLET PO SCH (21:23)
[2023-01-01] MEDS: MAGNESIUM OXIDE 400 MG TAB PO SCH (21:24)
[2023-01-01] MEDS: TAMSULOSIN 0.4 MG CAP.ER.24H PO SCH (21:24)
[2023-01-01] MEDS: ATORVASTATIN 20 MG TAB PO SCH (21:24)
[2023-01-01] MEDS: NON FORMULARY DRUG (Tadalafil [Tadalafil] 5 MG Tablet) PO SCH (21:25)
[2023-01-02] MEDS: SODIUM CHLORIDE 0.9% 1,000 ML IV SCH ×5 (01:07→21:19)
[2023-01-02] MEDS: HYDROcodone/APAP 10-325MG 1 EACH TAB PO PRN ×3 (04:52→22:34)
[2023-01-02] MEDS: PANTOPRAZOLE 40 MG TABLET PO SCH (06:05)
--- NOTE | 2023-01-02 09:14 | P.PN ---
Progress Note - Text Progress Note Date: 01/02/23 Orthopedic Spine: History of present illness: Patient is a pleasant 72-year-old male who is seen at the bedside following L3-4 revision laminectomy and decompression with repair of incidental durotomy with repositioning reduction of herniated nerve roots performed on 12/30/2022. He is status post L3-4 laminectomy and decompression performed on 12/29/2022. Patient states he was having severe pain in his lower extremities prior to revision surgical intervention with new onset numbness. He states he is no longer experiencing the numbness he was postoperatively on Tuesday. He continues to state his lower extremity leg pain has significantly improved. He is no longer experiencing the severe pain was prior to his revision laminectomy. Yesterday after dinner he was able to be set up at 45 without difficulty. He did not experience any spinal headache yesterday. He states he has not had any headaches at all. He is able to sit upright for prolonged period of time without difficulty. He is awake and answering questions appropriately. His Sanchez catheter is intact. He has no new complaints at the bedside. He is looking forward to increasing his mobility and ambulation. Currently does not complain of nausea, vomiting, fever, or chills. Patient states pain has been adequately controlled. Patient is being seen in exam by his primary care provider for his other medical diagnoses including hyperlipidemia, hypertension, history of CVA/TIA, and prostate disorder. Physical Exam Laminectomy/Discectomy: Status post surgical day number 3 Patient is awake, alert, and oriented 3 Vital signs appear stable To quit chest excursion with deep inspiration and expiration Abdomen soft nontender Dorsiflexion, plantarflexion, and extensor hallucis longus positive sustained bilaterally No signs or symptoms of DVT; no calf pain Patient is currently lying flat in bed without the head elevated Assessment: L3-4 revision laminectomy and decompression with repair of incidental durotomy with repositioning reduction of herniated nerve roots performed yesterday, 12/30/2022 Status post L3-4 laminectomy and decompression performed on 12/29/2022 Incidental durotomy during surgical intervention of laminectomy of L3-4 on 12/29/2022 Persistent dural tear Lower extremity numbness, improved postoperatively Hyperlipidemia Hypertension History of CVA/TIA Prostate disorder. Plan: 1. Patient is known to have sustained an incidental dural tear during surgical intervention on 12/29/2022. He underwent L3-4 revision laminectomy and decompression with repair of incidental durotomy with repositioning reduction of herniated nerve roots performed on 12/30/2022. Patient was able to be sat up at 45 after dinner yesterday without any significant difficulty. He did not experience any spinal headaches. He has not had any headaches at all since that time. We discussed that given his ability to sit upright at 45 without any he adaches we will continue to increase his mobility and ambulation. We will plan to have him sit upright at 90 today. If he is able to do this without experiencing any spinal headaches we may begin to increase his mobility with the assistance of therapy. If he is not experiencing any headaches he may begin to mobilize to the restroom with assistance. If he is able to increase his mobility and ambulation we could plan for discharge home as early as tomorrow, 01/03/2023, or 01/04/2023. We will continue to follow patient closely. 2. Continue pain control with IV and oral medications 3. Once he is able to increase his mobility and ambulation, we'll plan to discontinue his Sanchez catheter 4. Patient will continue be seen in exam by medicine for his other medical diagnoses 5. Patient may follow-up with Aaron Kumar PA-C or Dr. Leoncio Valdes at [facility] in 2 weeks following discharge. Helped Pt out of bed to chair today. Standby assist. Doing very well. No c/o headaches. agree with above. dural tear stable. increase ambulation and mobilization as tolerated. D/c sanchez in am on Tuesday and possible D/c home if able to void and safe with PT tomorrow D/c neurontin
[2023-01-02] MEDS: methylPREDNISolone SOD SUCCI 125 MG/2 ML VIAL IV SCH ×2 (09:20→21:14)
[2023-01-02] MEDS: METOPROLOL TARTRATE 50 MG TAB PO SCH ×2 (09:21→20:52)
[2023-01-02] MEDS: GABAPENTIN 300 MG CAP PO SCH ×3 (09:21→16:14)
[2023-01-02] MEDS: ASPIRIN 81 MG PO SCH (09:21)
[2023-01-02] MEDS: LOSARTAN-HCTZ 50-12.5 MG 1 EACH TAB PO SCH (09:22)
[2023-01-02] MEDS: HYDROmorphone 1 MG/ML 1 ML SYRINGE IVP PRN (09:27)
[2023-01-02 09:38] LABS: ALT 27 U/L (10-49); AST 23 U/L (14-35); Albumin 3.4 d/dL (3.8-4.9); Albumin/Globulin Ratio 1.79 Ratio (1.60-3.17); Alkaline Phosphatase 69 U/L (41-126); BUN/Creat Ratio 31.71 Ratio (12.00-20.00); Blood Urea Nitrogen 22.2 mg/dL (9.0-27.0); Calcium 8.7 mg/dL (8.7-10.3); Carbon Dioxide 26.4 mmol/L (21.6-31.8); Chloride 107 mmol/L (96-109); Globulin 1.9 d/dL (1.6-3.3); Glucose 174 mg/dL (70-110); Potassium 3.7 mmol/L (3.5-5.5); Sodium 143 mmol/L (135-145); Total Bilirubin 0.4 mg/dL (0.3-1.2); Total Protein 5.3 d/dL (6.2-8.2)
[2023-01-02 09:44] LABS: Basophils # (A) 0.01 X 10*3/uL (0.00-0.10); Basophils % (A) 0.1 %; Eosinophils # (A) 0 X 10*3/uL (0.04-0.35); Eosinophils % (A) 0 %; HCT 46.9 % (39.6-50.0); HGB 16.1 d/dL (13.0-17.0); Lymphocytes # (A) 0.63 X 10*3/uL (0.90-5.00); MCH 30.4 pg (27.0-32.0); MCHC 34.3 d/dL (32.0-37.0); MCV 88.7 FL (80.0-97.0); Mean Platelet Volume 9.8 FL (9.5-12.2); Monocytes # (A) 0.52 X 10*3/uL (0.20-1.00); Monocytes % (A) 4.2 %; NRBC Per 100 WBC 0 X 10*3/uL (0.00-0.01); Neutrophils # (A) 11.22 X 10*3/uL (1.80-7.70); Neutrophils % (A) 89.7 %; Platelet Count 150 X 10*3/uL (140-440); RBC 5.29 X 10*6/uL (4.40-5.60); RDW 12.4 % (11.5-14.5); WBC 12.51 X 10*3/uL (4.50-10.00)
--- NOTE | 2023-01-02 10:19 | P.PN ---
Subjective Progress Note Date: 01/02/23 This is a 72-year-old male patient of Dr. Macdonald who presented for an elective laminectomy with Dr. Valdes on 12/29/2022. Past medical history ongoing lower extremity pain and difficulty with prolonged ambulation with failed conservative management. Additional medical history includes hypertension, hyperlipidemia, BPH and cigar smoker. On 12/29/2022 patient underwent laminectomy and decompression of L3 to L4. Postoperatively patient complaining of severe symptoms to lower back towards his hips bilaterally. Patient reports that this is new and worse than before and does not improve with pain medications patient was reexamined by Dr. bateman plans for repeat surgery for revision of laminectomy decompression evaluation concerns of possible entrapment of herniated nerve root. At this time patient is lying in bed complaining of pain with at bedside. Home meds have been resumed to orthopedic services lab are currently pending. Current vital signs temp 98.2, heart rate 100, respiratory rate 19, blood pressure 134/75 with pulse ox of 91% on room air On 12/31/2022 patient is alert and oriented 3 patient underwent L3 to L4 revision laminectomy and decompression repair of incidental dermatotomy yesterday on 12/30/2022. Patient's pain improved significantly postoperatively patient was transferred to the ICU for closer monitoring. Patient did require BiPAP. At this time patient is lying comfortably in bed patient denies pain. Current vital signs temp 97.9, heart rate 77, respiratory rate 18, blood pressure 0124/59 with pulse ox of 97% on 3 L. White blood cell count elevated 23.88 the patient is on steroids. Denies any acute complaints. No fever. On 01/01/2023 patient was seen and examined on the medical floor he is alert and oriented 3 in no apparent distress there is no fever or chills no headache or dizziness no chest pain no shortness of breath no cough no nausea or vomiting no abdominal pain no diarrhea and no urinary symptoms. Pain is reasonably well controlled patient is maintained on oxygen via nasal. cannula white blood count is elevated at 23.8 however this is most likely related to steroid use. for DVT prophylaxis SCD stockings. On 01/02/2023 patient alert and oriented 3 currently resting comfortably bed. White blood cell improving to 12.5 one patient is on steroids denies any acute complaints. Current vital signs temp 98.5, heart rate 73, respiratory rate 18, blood pressure 147/80 with pulse ox 95% on room air. Patient denies chest pain or shortness breath. Patient denies nausea vomiting diarrhea. Patient denies any urinary burning or frequency Objective - Vital Signs Vital signs: Vital Signs Temp 98.5 F 01/02/23 07:49 Pulse 73 01/02/23 07:49 Resp 18 01/02/23 07:49 BP 147/80 01/02/23 07:49 Pulse Ox 95 01/02/23 07:49 FiO2 30 12/31/22 04:00 Intake & Output 01/01/23 01/02/23 01/02/23 18:59 06:59 18:59 Output Total 2290 410 Balance -2290 -410 Output: Urine 2290 410 Other: Voiding Method Urinal - Exam Head normocephalic Neck supple Lungs clear to auscultation bilaterally no wheezing or crackles Heart regular rate and rhythm S1-S2, no rub or gallop Abdomen is soft nontender nondistended positive bowel sounds no hepatosplenomegaly Extremities no edema Neuro alert and orientated to 3 - Labs CBC & Chem 7: 01/02/23 05:54 01/02/23 05:54 Labs: Abnormal Lab Results - Last 24 Hours (Table) 01/02/23 01/02/23 Range/Units 05:54 05:54 WBC 12.51 H (4.50-10.00) X 10*3/uL Neutrophils # 11.22 H (1.80-7.70) X 10*3/uL Lymphocytes # 0.63 L (0.90-5.00) X 10*3/uL Eosinophils # 0 L (0.04-0.35) X 10*3/uL BUN/Creatinine Ratio 31.71 H (12.00-20.00) Ratio Glucose 174 H (70-110) mg/dL Total Protein 5.3 L (6.2-8.2) d/dL Albumin 3.4 L (3.8-4.9) d/dL Assessment and Plan Assessment: 1. Status post laminectomy and decompression of L3 and L4 on 12/29/2022 2. Severe pain postoperatively plans for revision of laminectomy due to possible entrapment of herniated nerve root at durotomy site on 12/30/2022. Status post surgical repair on 12/30/2022 completed. Pain resolved 3. History of TIA in 2009 with no residual effects 4. History of hyperlipidemia 5. History of osteoarthritis 6. History of essential hypertension 7. History of BPH 8. Ex-smoker still reports he smokes a cigar occasionally Thank you for this consultation we'll continue to follow patient closely throughout stay patient transferred out of the ICU labs ordered PT OT and social work services for discharge planning Repeat
--- NOTE | 2023-01-02 12:56 | P.PN ---
Subjective Progress Note Date: 01/02/23 I am seeing this patient in new consultation today 12/31/2022 in the intensive care unit as he is status postoperative day #2 following a L3 to L4 laminectomy decompression and fusion and postoperative day #1 following a dural tear repair. Patient is a 72-year-old white male with past medical history significant for obstructive sleep apnea with home CPAP, hyperlipidemia, hypertension, previous CVA/TIA, osteoarthritis. Patient was reportedly having issues with lower extremity weakness and gait disturbances. Patient had an elective L3 to L4 laminectomy with decompression and fusion on December 29, there was a dural tear with herniated nerve roots noted at that time. Patient went back to surgery yesterday for dural tear repair. Postoperatively, the patient was confused and lethargic. He was placed on BiPAP with settings 16/8 and FiO2 35%. Currently, the patient is lying supine in bed, on 3 L/m nasal cannula, not in any acute distress. He is alert but confused, probably from anesthesia. ABGs postoperatively show a pO2 of 81, pCO2 44, pH of 7.38. This was done on 3 L per nasal cannula. Patient does state that he wears a nasal CPAP HS at home, however, he doesn't remember the settings. Patient's denies any sensation disturbances in his lower extremity. Lower extremity strength is intact. No headache or nausea. CBC preoperatively shows a WBC count of 17.7, hemoglobin 17.6, hematocrit 31.3, platelets 155. BMP preoperatively shows a sodium of 143, potassium 3.9, chloride 107, serum bicarbonate 23, BUN 18, creatinine 0.7, glucose 142. Normal saline is infusing at 75 mL per hour. Urine output is adequate. Patient is to remain on bedrest and supine overnight. SCDs are on. Pain is reportedly well controlled. Hemodynamically the patient is stable. 01/01/2023, no new complaints. Pain is under better control and the patient is postop following his spine surgery which involved initial L3-L4 laminectomy and decompression and fusion and subsequent dural tear repair. The patient is postop day #2 following his dural tear repair and the patient remains on bedrest. No respiratory difficulties. Utilizing his CPAP. No bowel movement activity yet. No nausea or vomiting. No abdominal distention. Using the incentive spirometer. Denies having any headache. No altered mentation. No other complaints otherwise. On 01/02/2023, the patient reports marked improvement in the control of this pain. He is admitted to ambulate. An orthopedic clearance will be obtained prior to him ambulating. His postoperative day #3 following a dural tear repair.. No bowel movements yet. No constipation. No major respiratory difficulties. No cough or sputum production. He is using a CPAP from home overnight. He remains on IV Rocephin. The bloodwork shows an improvement in his white cell count is currently down to 12 and hemoglobin is at 16. BUN is at 22 and a creatinine of 0.7 and sodium levels is 143. The patient is on room air oxygen. Objective - Vital Signs Vital signs: Vital Signs Temp 98.5 F 01/02/23 07:49 Pulse 73 01/02/23 07:49 Resp 18 01/02/23 07:49 BP 147/80 01/02/23 07:49 Pulse Ox 95 01/02/23 07:49 FiO2 30 12/31/22 04:00 Intake & Output 01/01/23 01/02/23 01/02/23 18:59 06:59 18:59 Output Total 2290 410 Balance -2290 -410 Output: Urine 2290 410 Other: Voiding Method Urinal - Exam GENERAL EXAM: Alert, 72-year-old white male , comfortable in no apparent distress. HEAD: Normocephalic and atraumatic EYES: Normal reaction of pupils, equal size. NOSE: Clear with pink turbinates. THROAT: No erythema or exudates. NECK: No masses, no JVD. CHEST: No chest wall deformity. LUNGS: Equal air entry with no crackles, wheeze, rhonchi or dullness. Room air oxygen CVS: S1 and S2 normal with no audible murmur, regular rhythm. No extra heart sounds ABDOMEN: Obese abdomen, no hepatosplenomegaly, active bowel sounds, no guarding or rigidity. SPINE: Postsurgical site incision clean, dry, approximated SKIN: No rashes CENTRAL NERVOUS SYSTEM: Alert, Oriented to person and time. Not place. No focal deficits, strength in all 4 extremities grade 5/5. No sensation loss. EXTREMITIES: There is no peripheral edema, clubbing, or cyanosis. Peripheral pulses are intact. - Labs CBC & Chem 7: 01/02/23 05:54 01/02/23 05:54 Labs: Abnormal Lab Results - Last 24 Hours (Table) 01/02/23 01/02/23 Range/Units 05:54 05:54 WBC 12.51 H (4.50-10.00) X 10*3/uL Neutrophils # 11.22 H (1.80-7.70) X 10*3/uL Lymphocytes # 0.63 L (0.90-5.00) X 10*3/uL Eosinophils # 0 L (0.04-0.35) X 10*3/uL BUN/Creatinine Ratio 31.71 H (12.00-20.00) Ratio Glucose 174 H (70-110) mg/dL Total Protein 5.3 L (6.2-8.2) d/dL Albumin 3.4 L (3.8-4.9) d/dL Assessment and Plan Assessment: Status postoperative day # 4 following a L3 to L4 laminectomy decompression with dural tear noted intraoperatively Status postoperative day # 3 following a dural tear repair , no headaches, the patient remains on a bedrest. Lumbar stenosis L4 to L5 with symptoms of neurogenic claudication Leukocytosis, reactive to surgery, The white cell count is improving, likely r eactive Obstructive sleep apnea, with home nasal CPAP Benign essential hypertension Hyperlipidemia History of CVA/TIA Chronic ongoing tobacco dependence, occasionally smokes cigars Obesity, with a BMI of 33.9 kg/m Plan: Pulmonary status is stable and the patient is on room air oxygen Patient is utilizing his own CPAP machine from home Monitor CBC and the white count, improving, likely reactive Continue using the incentive spirometer Pain control is under better control IV fluids with normal saline at the rate of 75 mL an hour Dulcolax suppositories for bowel movement activity We'll follow spine surgery is following his surgical wound and neurologic functions in his lower extremities. Measures of steroids prior spine surgery Pulmonary critical care services will sign off
[2023-01-02] MEDS: NON FORMULARY DRUG (Tadalafil [Tadalafil] 5 MG Tablet) PO SCH (20:47)
[2023-01-02] MEDS: MAGNESIUM OXIDE 400 MG TAB PO SCH (20:52)
[2023-01-02] MEDS: CHOLECALCIFEROL 25 MCG (1000 IU) TABLET PO SCH (20:52)
[2023-01-02] MEDS: TAMSULOSIN 0.4 MG CAP.ER.24H PO SCH (20:52)
[2023-01-02] MEDS: ATORVASTATIN 20 MG TAB PO SCH (20:52)
[2023-01-03] MEDS: HYDROcodone/APAP 10-325MG 1 EACH TAB PO PRN ×3 (04:54→23:32)
[2023-01-03] MEDS: SODIUM CHLORIDE 0.9% 1,000 ML IV SCH ×3 (04:54→17:57)
[2023-01-03] MEDS: PANTOPRAZOLE 40 MG TABLET PO SCH (05:13)
--- NOTE | 2023-01-03 08:41 | P.DS ---
Providers Date of admission: 12/30/22 17:07 Expected date of discharge: 01/03/23 Attending physician: Estefania Valdes Consults: 12/29/22 17:42 Consult Physician Routine Consulting Provider: Valery Doe Consult Reason/Comments: Medical management Do you want consulting provider notified?: Yes 12/30/22 21:20 Consult Physician Urgent Consulting Provider: Magan Marquez Consult Reason/Comments: icu management Do you want consulting provider notified?: Already Contacted Primary care physician: Bev Macdonald - Discharge Diagnosis(es) (1) Lower extremity weakness Current Visit: Yes Status: Acute (2) Radiculopathy with lower extremity symptoms Current Visit: Yes Status: Acute (3) Neurogenic claudication due to lumbar spinal stenosis Current Visit: Yes Status: Acute (4) Lumbar degenerative disc disease Current Visit: Yes Status: Acute (5) Incidental durotomy Current Visit: Yes Status: Acute (6) Hyperlipidemia Current Visit: Yes Status: Acute (7) Hypertension Current Visit: Yes Status: Acute (8) History of CVA (cerebrovascular accident) Current Visit: Yes Status: Acute (9) Prostate disorder Current Visit: Yes Status: Acute (10) Lumbar stenosis Current Visit: Yes Status: Acute (11) Postoperative pain after spinal surgery Current Visit: Yes Status: Acute Hospital Course: This is a pleasant 72-year-old male who presented with L3-4 severe spinal stenosis, lower extremity radiculopathy with weakness, neurogenic claudication, and lumbar degenerative disc disease who failed outpatient conservative therapy. He was admitted for L3-4 laminectomy and decompression performed on 12/29/2022. During surgical intervention, there was an incidental durotomy at L3-4. He underwent further surgical intervention with L3-4 revision laminectomy and decompression with repair of incidental durotomy with repositioning reduction of herniated nerve roots performed , 12/30/2022. Following his second surgical intervention, patient had remained lying flat in bed until Tuesday evening. He was able to sit up at 45 Tuesday evening without any spinal headaches. He was able to continue to increase his mobility and ambulation yesterday without any evidence of headaches. He was able to ambulate throughout the hallways with physical therapy. He is currently ambulating in his room today. He feels his pain has dramatically improved postoperatively. His lower extremity radiculopathy pain has significantly improved. He is not [place] and sitting any headaches. He has not been using much pain medication for pain control. He feels his pain is well-controlled and he would like to be discharged home today. We did discuss patient must be cleared by physical therapy prior to discharge home. Patient states he does have multiple walkers at home to aid in ambulation as needed. Cheek catheter was also discontinued. We did discuss patient must be able to void independently prior to discharge home. Patient has also been seen by pulmonology. Patient will need to be cleared by pulmonology prior to discharge home. We will plan to clear the patient for discharge from an orthopedic spine standpoint pending clearance by physical therapy, pulmonology and his ability to void independently. He has had a history with some change in voiding due to his prostate disorder. Condition on day of discharge stable. Patient will be discharged home. Patient was cleared preoperatively for surgery by Dr. Chanel. Patient currently denies any nausea, vomiting, fever, or chills. Patient is eating and voiding freely without difficulty. Surgical dressing has been removed. Patient may shower without a dressing intact. Patient should refrain from driving until at least after their first follow-up appointment in the office. Patient should avoid excessive bending, lifting, and twisting; no lifting greater than 10 pounds. MAPS was previously reviewed. An "Opiod Start Talking" Form has been signed and placed in the patient's chart. A prescription has been written for hydrocodone 5 mg/325 mg, 1 tablet every 6 hours as needed for acute pain, dispense #28. Prescription was sent to the patient's pharmacy. Patient's other medical diagnoses include hyperlipidemia, hypertension, history of CVA/TIA, and prostate disorder. Physical Exam on day of discharge: Patient is awake, alert, and oriented 3 Vital signs stable Good chest excursion with deep inspiration and expiration Extensor hallucis longus, plantarflexion, and dorsiflexion positive sustained bilateral lower extremities Patient is able to stand independently at the bedside Patient is able to ambulate throughout the room with the assistance of a walker with a limp on the left lower extremity Incision is clean, dry, and intact; no erythema, purulence, or signs of infection Surgical dressing is removed at the bedside; no active drainage from the surgical site; no erythema or obvious sign of infection Mild bruising around the surgical site of the lumbar spine Procedures: L3-4 laminectomy and decompression performed on 12/29/2022 L3-4 revision laminectomy and decompression with repair of incidental durotomy with repositioning reduction of herniated nerve roots performed on , 12/30/2022 Patient Condition at Discharge: Stable Plan - Discharge Summary Discharge Rx Participant: No New Discharge Prescriptions: New HYDROcodone/APAP 5-325MG [[place] 5-325] 1 tab PO Q6HR PRN 7 Days #28 tab PRN Reason: Pain No Action Tamsulosin HCl [Flomax] 0.8 mg PO HS Simvastatin [Zocor] 40 mg PO HS Metoprolol Tartrate [Lopressor] 50 mg PO BID Cholecalciferol [Vitamin D3] 4,000 unit PO HS Magnesium Oxide [Luevano] 500 mg PO HS Aspirin EC [Ecotrin] 81 mg PO DAILY Losartan/Hydrochlorothiazide [Losartan-Hctz 100-25 mg Tab] 1 tab PO DAILY tadalafiL 5 mg PO HS Discharge Medication List Metoprolol Tartrate [Lopressor] 50 mg PO BID 12/08/13 [History] Simvastatin [Zocor] 40 mg PO HS 12/08/13 [History] Tamsulosin HCl [Flomax] 0.8 mg PO HS 12/08/13 [History] Aspirin EC [Ecotrin] 81 mg PO DAILY 06/21/17 [History] Cholecalciferol [Vitamin D3] 4,000 unit PO HS 06/21/17 [History] Magnesium Oxide [[place]uevano] 500 mg PO HS 06/21/17 [History] Losartan/Hydrochlorothiazide [Losartan-Hctz 100-25 mg Tab] 1 tab PO DAILY 12/23/22 [History] tadalafiL 5 mg PO HS 12/24/22 [History] HYDROcodone/APAP 5-325MG [[place] 5-325] 1 tab PO Q6HR PRN 7 Days #28 tab 12/29/22 [Rx] Follow up Appointment(s)/Referral(s): Estefania Valdes DO [Doctor of Osteopathic Medicine] - 2 Weeks Activity/Diet/Wound Care/Special Instructions: Keep site clean. Patient may shower without a dressing intact. Do not soak in a tub. Leave glue intact and allow it to fray off on its own. May ambulate as tolerated. Patient is encouraged to utilize a walker to aid in ambulation as needed. Avoid heavy or rigorous activity. No repetitive bending twisting or lifting; no lifting greater than 10 pounds No overhead work. Discharge Disposition: HOME SELF-CARE
[2023-01-03] MEDS: ASPIRIN 81 MG PO SCH (08:55)
[2023-01-03] MEDS: METOPROLOL TARTRATE 50 MG TAB PO SCH ×2 (08:55→21:19)
[2023-01-03] MEDS: LOSARTAN-HCTZ 50-12.5 MG 1 EACH TAB PO SCH (08:55)
[2023-01-03 09:04] LABS: ALT 53 U/L (10-49); AST 31 U/L (14-35); Albumin 3.8 d/dL (3.8-4.9); Albumin/Globulin Ratio 1.81 Ratio (1.60-3.17); Alkaline Phosphatase 71 U/L (41-126); BUN/Creat Ratio 27.38 Ratio (12.00-20.00); Blood Urea Nitrogen 21.9 mg/dL (9.0-27.0); Carbon Dioxide 25.2 mmol/L (21.6-31.8); Chloride 105 mmol/L (96-109); Globulin 2.1 d/dL (1.6-3.3); Glucose 135 mg/dL (70-110); Potassium 3.8 mmol/L (3.5-5.5); Sodium 141 mmol/L (135-145); Total Bilirubin 0.7 mg/dL (0.3-1.2); Total Protein 5.9 d/dL (6.2-8.2)
[2023-01-03 09:09] LABS: Basophils # (A) 0.03 X 10*3/uL (0.00-0.10); Basophils % (A) 0.2 %; Eosinophils # (A) 0 X 10*3/uL (0.04-0.35); Eosinophils % (A) 0 %; HCT 49.8 % (39.6-50.0); HGB 17.6 d/dL (13.0-17.0); Lymphocytes # (A) 0.73 X 10*3/uL (0.90-5.00); Lymphocytes % (A) 5.1 %; MCHC 35.3 d/dL (32.0-37.0); MCV 87.8 FL (80.0-97.0); Mean Platelet Volume 10.4 FL (9.5-12.2); Monocytes # (A) 0.77 X 10*3/uL (0.20-1.00); Monocytes % (A) 5.4 %; NRBC Per 100 WBC 0 X 10*3/uL (0.00-0.01); Neutrophils # (A) 12.61 X 10*3/uL (1.80-7.70); Neutrophils % (A) 87.7 %; Platelet Count 176 X 10*3/uL (140-440); RBC 5.67 X 10*6/uL (4.40-5.60); RDW 12.3 % (11.5-14.5); WBC 14.37 X 10*3/uL (4.50-10.00)
[2023-01-03] MEDS: methylPREDNISolone SOD SUCCI 125 MG/2 ML VIAL IV SCH ×2 (09:42→21:18)
--- NOTE | 2023-01-03 13:50 | P.PN ---
Subjective Progress Note Date: 01/03/23 This is a 72-year-old male patient of Dr. Macdonald who presented for an elective laminectomy with Dr. Valdes on 12/29/2022. Past medical history ongoing lower extremity pain and difficulty with prolonged ambulation with failed conservative management. Additional medical history includes hypertension, hyperlipidemia, BPH and cigar smoker. On 12/29/2022 patient underwent laminectomy and decompression of L3 to L4. Postoperatively patient complaining of severe symptoms to lower back towards his hips bilaterally. Patient reports that this is new and worse than before and does not improve with pain medications patient was reexamined by Dr. bateman plans for repeat surgery for revision of laminectomy decompression evaluation concerns of possible entrapment of herniated nerve root. At this time patient is lying in bed complaining of pain with at bedside. Home meds have been resumed to orthopedic services lab are currently pending. Current vital signs temp 98.2, heart rate 100, respiratory rate 19, blood pressure 134/75 with pulse ox of 91% on room air On 12/31/2022 patient is alert and oriented 3 patient underwent L3 to L4 revision laminectomy and decompression repair of incidental dermatotomy yesterday on 12/30/2022. Patient's pain improved significantly postoperatively patient was transferred to the ICU for closer monitoring. Patient did require BiPAP. At this time patient is lying comfortably in bed patient denies pain. Current vital signs temp 97.9, heart rate 77, respiratory rate 18, blood pressure 0124/59 with pulse ox of 97% on 3 L. White blood cell count elevated 23.88 the patient is on steroids. Denies any acute complaints. No fever. On 01/01/2023 patient was seen and examined on the medical floor he is alert and oriented 3 in no apparent distress there is no fever or chills no headache or dizziness no chest pain no shortness of breath no cough no nausea or vomiting no abdominal pain no diarrhea and no urinary symptoms. Pain is reasonably well controlled patient is maintained on oxygen via nasal. cannula white blood count is elevated at 23.8 however this is most likely related to steroid use. for DVT prophylaxis SCD stockings. On 01/02/2023 patient alert and oriented 3 currently resting comfortably bed. White blood cell improving to 12.5 one patient is on steroids denies any acute complaints. Current vital signs temp 98.5, heart rate 73, respiratory rate 18, blood pressure 147/80 with pulse ox 95% on room air. Patient denies chest pain or shortness breath. Patient denies nausea vomiting diarrhea. Patient denies any urinary burning or frequency On 01/03/2023 patient was seen and examined on the medical floor he is alert and oriented 3 in no apparent distress there is no fever or chills no headache or dizziness no chest pain no shortness of breath no cough no nausea or vomiting no abdominal pain no diarrhea. Cheek catheter was removed this morning, patient is still not able to urinate, bladder scan reveals 375 mL, patient is receiving Flomax 0.8 mg at bedtime, at this time will continue to monitor for a few more hours to assess if patient needs to have Cheek catheter reinserted or he is currently be able to urinate on his own, is able to urinate patient can be discharged to home today. Objective - Vital Signs Vital signs: Vital Signs Temp 97.5 F L 01/03/23 08:00 Pulse 77 01/03/23 08:00 Resp 16 01/03/23 08:00 BP 163/91 01/03/23 08:00 Pulse Ox 94 L 01/03/23 08:00 FiO2 30 12/31/22 04:00 Intake & Output 01/02/23 01/03/23 01/03/23 18:59 06:59 18:59 Output Total 790 700 Balance -790 -700 Output: Urine 790 700 Other: Voiding Method Urinal - Exam Head normocephalic Neck supple Lungs clear to auscultation bilaterally no wheezing or crackles Heart regular rate and rhythm S1-S2, no rub or gallop Abdomen is soft nontender nondistended positive bowel sounds no hepatosplenomegaly Extremities no edema Neuro alert and orientated to 3 - Labs CBC & Chem 7: 01/03/23 05:56 01/03/23 05:56 Labs: Abnormal Lab Results - Last 24 Hours (Table) 01/02/23 01/03/23 01/03/23 Range/Units 05:54 05:56 05:56 WBC 12.51 H 14.37 H (4.50-10.00) X 10*3/uL RBC 5.67 H (4.40-5.60) X 10*6/uL Hgb 17.6 H (13.0-17.0) d/dL Neutrophils # 11.22 H 12.61 H (1.80-7.70) X 10*3/uL Lymphocytes # 0.63 L 0.73 L (0.90-5.00) X 10*3/uL Eosinophils # 0 L 0 L (0.04-0.35) X 10*3/uL BUN/Creatinine Ratio 27.38 H (12.00-20.00) Ratio Glucose 135 H (70-110) mg/dL ALT 53 H (10-49) U/L Total Protein 5.9 L (6.2-8.2) d/dL Assessment and Plan Assessment: 1. Status post laminectomy and decompression of L3 and L4 on 12/29/2022 2. Severe pain postoperatively plans for revision of laminectomy due to possi ble entrapment of herniated nerve root at durotomy site on 12/30/2022. Status post surgical repair on 12/30/2022 completed. Pain resolved 3. History of TIA in 2009 with no residual effects 4. History of hyperlipidemia 5. History of osteoarthritis 6. History of essential hypertension 7. History of BPH 8. Ex-smoker still reports he smokes a cigar occasionally Thank you for this consultation we'll continue to follow patient closely throughout stay Patient was transferred to ICU postoperatively on 12/30/2022 patient was on BiPAP Repeat labs ordered
[2023-01-03] MEDS: NON FORMULARY DRUG (Tadalafil [Tadalafil] 5 MG Tablet) PO SCH (21:18)
[2023-01-03] MEDS: CHOLECALCIFEROL 25 MCG (1000 IU) TABLET PO SCH (21:19)
[2023-01-03] MEDS: ATORVASTATIN 20 MG TAB PO SCH (21:19)
[2023-01-03] MEDS: TAMSULOSIN 0.4 MG CAP.ER.24H PO SCH (21:19)
[2023-01-03] MEDS: MAGNESIUM OXIDE 400 MG TAB PO SCH (21:19)
[2023-01-04] MEDS: SODIUM CHLORIDE 0.9% 1,000 ML IV SCH ×2 (05:24)
[2023-01-04] MEDS: PANTOPRAZOLE 40 MG TABLET PO SCH (06:09)
[2023-01-04 07:19] VITALS: BP 167/92; PULSE 70; RESP 18; TEMP 97.9
[2023-01-04] MEDS: HYDROcodone/APAP 10-325MG 1 EACH TAB PO PRN (07:33)
--- NOTE | 2023-01-04 08:59 | P.DS ---
Providers Date of admission: 12/30/22 17:07 Expected date of discharge: 01/04/23 Attending physician: Estefania Valdes Consults: 12/29/22 17:42 Consult Physician Routine Consulting Provider: Valery Doe Consult Reason/Comments: Medical management Do you want consulting provider notified?: Yes 12/30/22 21:20 Consult Physician Urgent Consulting Provider: Magan Marquez Consult Reason/Comments: icu management Do you want consulting provider notified?: Already Contacted 01/03/23 17:22 Consult Physician Routine Consulting Provider: Collins Rubio Consult Reason/Comments: Retention/ Cheek placement Do you want consulting provider notified?: Yes Primary care physician: Bev Macdonald - Will Diagnosis(es) (1) Lower extremity weakness Current Visit: Yes Status: Acute (2) Radiculopathy with lower extremity symptoms Current Visit: Yes Status: Acute (3) Neurogenic claudication due to lumbar spinal stenosis Current Visit: Yes Status: Acute (4) Lumbar degenerative disc disease Current Visit: Yes Status: Acute (5) Incidental durotomy Current Visit: Yes Status: Acute (6) Hyperlipidemia Current Visit: Yes Status: Acute (7) Hypertension Current Visit: Yes Status: Acute (8) History of CVA (cerebrovascular accident) Current Visit: Yes Status: Acute (9) Prostate disorder Current Visit: Yes Status: Acute (10) Lumbar stenosis Current Visit: Yes Status: Acute (11) Postoperative pain after spinal surgery Current Visit: Yes Status: Acute Hospital Course: This is a pleasant 72-year-old male who presented with L3-4 severe spinal stenosis, lower extremity radiculopathy with weakness, neurogenic claudication, and lumbar degenerative disc disease who failed outpatient conservative therapy. He was admitted for L3-4 laminectomy and decompression performed on 12/29/2022. During surgical intervention, there was an incidental durotomy at L3-4. He underwent further surgical intervention with L3-4 revision laminectomy and decompression with repair of incidental durotomy with repositioning reduction of herniated nerve roots performed , 12/30/2022. Following his second surgical intervention, patient had remained lying flat in bed until Tuesday evening. He was able to sit up at 45 Tuesday evening without any spinal headaches. He was able to continue to increase his mobility and ambulation yesterday without any evidence of headaches. He was able to ambulate throughout the hallways with physical therapy. He was ambulating well yesterday and was ready for discharge. He was unable to void independently and remained in the hospital for urology consultation. He has been seen by urology this morning. Cheek catheter has been reinserted. Urology is clean the patient for discharge with Cheek catheter and intact with plans for the patient to follow up in outpatient setting for further evaluation in 1 week. Patient is known to have a prostate disorder. He states urology states he may need intervention in regards to his prostate. Patient has been able to continue ambulating. Overall, he feels his pain has dramatically improved postoperatively. His lower extremity radiculopathy pain has significantly improved but does have some left lower extremity pain today. He is not experiencing any headaches. He has not been using much pain medication for pain control. He feels his pain is well-controlled and he would like to be discharged home today. Postoperatively, he does have some numbness around the buttocks and genital region which has been ongoing without any significant change. He denies any other neurologic lower extremity change or difference. He is ambulating well with his lower extremities but does continue to have a limp on the left lower extremity. Patient states he does have multiple walkers at home to aid in ambulation as needed. We will plan to clear the patient for discharge from an orthopedic spine standpoint. After being evaluated by urology this morning, he'll plan for discharge home with Cheek catheter intact with plans for follow up with urology in approximately 1 week. Condition on day of discharge stable. Patient will be discharged home. Patient was cleared preoperatively for surgery by Dr. Macdonald. Patient currently denies any nausea, vomiting, fever, or chills. Patient is eating and voiding freely without difficulty. Surgical dressing was reapplied yesterday and is currently clean, dry, and intact. He may continue with dressing changes as needed. Patient may shower without a dressing intact. Patient should refrain from driving until at least after their first follow-up appointment in the office. Patient should avoid excessive bending, lifting, and twisting; no lifting greater than 10 pounds. MAPS was previously reviewed. An "Opiod Start Talking" Form has been signed and placed in the patient's chart. A prescription has been written for hydrocodone 5 mg/325 mg, 1 tablet every 6 hours as needed for acute pain, dispense #28. Prescription was sent to the patient's pharmacy. Prescription is also sit for Senokot-S1 tab twice a day as needed for constipation, dispensed #60. Patient's other medical diagnoses include hyperlipidemia, hypertension, history of CVA/TIA, and prostate disorder. Physical Exam on day of discharge: Patient is awake, alert, and oriented 3 Vital signs stable Good chest excursion with deep inspiration and expiration Abdomen is soft; no pain with palpation over the abdomen Extensor hallucis longus, plantarflexion, and dorsiflexion positive sustained bilateral lower extremities Patient is able to stand independently at the bedside Patient is able to ambulate throughout the room with the assistance of a walker with a limp on the left lower extremity Incision is clean, dry, and intact; no erythema, purulence, or signs of i nfection; dressing is dry Cheek catheter intact Procedures: L3-4 laminectomy and decompression performed on 12/29/2022 L3-4 revision laminectomy and decompression with repair of incidental durotomy with repositioning reduction of herniated nerve roots performed , 12/30/2022 Patient Condition at Discharge: Stable Plan - Discharge Summary Discharge Rx Participant: No New Discharge Prescriptions: New HYDROcodone/APAP 5-325MG [Treichlers 5-325] 1 tab PO Q6HR PRN 7 Days #28 tab PRN Reason: Pain Sennosides-Docusate Sodium [Senokot-S] 1 tab PO BID PRN #60 tablet PRN Reason: Constipation No Action Tamsulosin HCl [Flomax] 0.8 mg PO HS Simvastatin [Zocor] 40 mg PO HS Metoprolol Tartrate [Lopressor] 50 mg PO BID Cholecalciferol [Vitamin D3] 4,000 unit PO HS Magnesium Oxide [Luevano] 500 mg PO HS Aspirin EC [Ecotrin] 81 mg PO DAILY Losartan/Hydrochlorothiazide [Losartan-Hctz 100-25 mg Tab] 1 tab PO DAILY tadalafiL 5 mg PO HS Discharge Medication List Metoprolol Tartrate [Lopressor] 50 mg PO BID 12/08/13 [History] Simvastatin [Zocor] 40 mg PO HS 12/08/13 [History] Tamsulosin HCl [Flomax] 0.8 mg PO HS 12/08/13 [History] Aspirin EC [Ecotrin] 81 mg PO DAILY 04/17/18 [History] Cholecalciferol [Vitamin D3] 4,000 unit PO HS 06/21/17 [History] Magnesium Oxide [Luevano] 500 mg PO HS 06/21/17 [History] Losartan/Hydrochlorothiazide [Losartan-Hctz 100-25 mg Tab] 1 tab PO DAILY 12/23/22 [History] tadalafiL 5 mg PO HS 12/24/22 [History] HYDROcodone/APAP 5-325MG [Treichlers 5-325] 1 tab PO Q6HR PRN 7 Days #28 tab 12/29/22 [Rx] Sennosides-Docusate Sodium [Senokot-S] 1 tab PO BID PRN #60 tablet 01/04/23 [Rx] Follow up Appointment(s)/Referral(s): Bev Macdonald MD [Primary Care Provider] - 01/11/23 11:00 am Estefania Valdes DO [Doctor of Osteopathic Medicine] - 01/11/23 9:30 am Activity/Diet/Wound Care/Special Instructions: Keep site clean. Patient may shower without a dressing intact. Do not soak in a tub. Leave glue intact and allow it to fray off on its own. May ambulate as tolerated. Patient is encouraged to utilize a walker to aid in ambulation as needed. Avoid heavy or rigorous activity. No repetitive bending twisting or lifting; no lifting greater than 10 pounds No overhead work. Discharge Disposition: HOME SELF-CARE
--- NOTE | 2023-01-04 09:15 | P.PN ---
Subjective Progress Note Date: 01/04/23 This is a 72-year-old male patient of Dr. Macdonald who presented for an elective laminectomy with Dr. Valdes on 12/29/2022. Past medical history ongoing lower extremity pain and difficulty with prolonged ambulation with failed conservative management. Additional medical history includes hypertension, hyperlipidemia, BPH and cigar smoker. On 12/29/2022 patient underwent laminectomy and decompression of L3 to L4. Postoperatively patient complaining of severe symptoms to lower back towards his hips bilaterally. Patient reports that this is new and worse than before and does not improve with pain medications patient was reexamined by Dr. bateman plans for repeat surgery for revision of laminectomy decompression evaluation concerns of possible entrapment of herniated nerve root. At this time patient is lying in bed complaining of pain with at bedside. Home meds have been resumed to orthopedic services lab are currently pending. Current vital signs temp 98.2, heart rate 100, respiratory rate 19, blood pressure 134/75 with pulse ox of 91% on room air On 12/31/2022 patient is alert and oriented 3 patient underwent L3 to L4 revision laminectomy and decompression repair of incidental dermatotomy yesterday on 12/30/2022. Patient's pain improved significantly postoperatively patient was transferred to the ICU for closer monitoring. Patient did require BiPAP. At this time patient is lying comfortably in bed patient denies pain. Current vital signs temp 97.9, heart rate 77, respiratory rate 18, blood pressure 0124/59 with pulse ox of 97% on 3 L. White blood cell count elevated 23.88 the patient is on steroids. Denies any acute complaints. No fever. On 01/01/2023 patient was seen and examined on the medical floor he is alert and oriented 3 in no apparent distress there is no fever or chills no headache or dizziness no chest pain no shortness of breath no cough no nausea or vomiting no abdominal pain no diarrhea and no urinary symptoms. Pain is reasonably well controlled patient is maintained on oxygen via nasal. cannula white blood count is elevated at 23.8 however this is most likely related to steroid use. for DVT prophylaxis SCD stockings. On 01/02/2023 patient alert and oriented 3 currently resting comfortably bed. White blood cell improving to 12.5 one patient is on steroids denies any acute complaints. Current vital signs temp 98.5, heart rate 73, respiratory rate 18, blood pressure 147/80 with pulse ox 95% on room air. Patient denies chest pain or shortness breath. Patient denies nausea vomiting diarrhea. Patient denies any urinary burning or frequency On 01/03/2023 patient was seen and examined on the medical floor he is alert and oriented 3 in no apparent distress there is no fever or chills no headache or dizziness no chest pain no shortness of breath no cough no nausea or vomiting no abdominal pain no diarrhea. Cheek catheter was removed this morning, patient is still not able to urinate, bladder scan reveals 375 mL, patient is receiving Flomax 0.8 mg at bedtime, at this time will continue to monitor for a few more hours to assess if patient needs to have Cheek catheter reinserted or he is currently be able to urinate on his own, is able to urinate patient can be discharged to home today. on 01/04/2023 3 patient is alert and oriented 3. per nursing staff and patient and at bedside patient was evaluated by urology services plan to discharge patient with Cheek catheter in place and follow-up outpatient on Tuesday with urology services for further management. At this time patient denies chest pain or shortness breath. Patient denies nausea vomiting or diarrhea. Patient denies any urinary burning or frequency. Current vital signs temp 98.1, heart rate 62, respiratory rate 19, blood pressure 153/92 with pulse ox 97% on room air Objective - Vital Signs Vital signs: Vital Signs Temp 97.9 F 01/04/23 07:06 Pulse 70 01/04/23 07:06 Resp 18 01/04/23 07:06 BP 167/92 01/04/23 07:06 Pulse Ox 93 L 01/04/23 07:06 FiO2 30 12/31/22 04:00 Intake & Output 01/03/23 01/04/23 01/04/23 18:59 06:59 18:59 Intake Total 250 Output Total 1000 1600 Balance -750 -1600 Intake: Oral 250 Output: Urine 1000 1600 Other: Voiding Method Urinal Indwelling Catheter Indwelling Catheter # Voids 2 - Exam Head normocephalic Neck supple Lungs clear to auscultation bilaterally no wheezing or crackles Heart regular rate and rhythm S1-S2, no rub or gallop Abdomen is soft nontender nondistended positive bowel sounds no hepatosplenomegaly Extremities no edema Neuro alert and orientated to 3 - Labs CBC & Chem 7: 01/03/23 05:56 01/03/23 05:56 Assessment and Plan Assessment: 1. Status post laminectomy and decompression of L3 and L4 on 12/29/2022 2. Severe pain postoperatively plans for revision of laminectomy due to possible entrapment of herniated nerve root at durotomy site on 12/30/2022. Status post surgical repair on 12/30/2022 completed. Pain resolved 3. History of TIA in 2009 with no residual effects 4. History of hyperlipidemia 5. History of osteoarthritis 6. History of essential hypertension 7. History of BPH 8. Ex-smoker still reports he smokes a cigar occasionally 9. Urinary retention patient was evaluated by urology service is patient will be DC'd with indwelling catheter and follow-up outpatient with urology services for further management
--- NOTE | 2023-01-04 09:58 | P.GSCN ---
History of Present Illness Consult date: 01/04/23 Reason for Consult: urinary retention History of present illness: This is a 72-year-old male status post L3-L4 laminectomy. Urology is counsulted for urinary retention patient had his Cheek catheter removed and subsequently reinserted due to retention. Patient was unable to void following his catheter removal. At baseline he does have significant obstructive urinary symptoms. Indicates the only way he is able to void at [facility] is by sitting down with significant straining. He is on Flomax 0.8 mg at baseline. Denies any dysuria or gross hematuria. No previous history of urinary retention. Denies any history of kidney stones or recurrent UTIs. He indicated he has followed up as an outpatient with Dr. Rubio for BPH. Review of Systems - Constitutional Denies fever, Denies weight loss - EENT Ears, nose, mouth and throat: Denies dysphagia - Cardiovascular Denies chest pain, Denies shortness of breath - Respiratory Denies cough, Denies 7 - Gastrointestinal Reports as per HPI - Genitourinary Reports urinary retention, Denies flank pain, Denies hematuria, Denies kidney stones - Neurological Denies headaches, Denies syncope Past Medical History Past Medical History: CVA/TIA, Hyperlipidemia, Hypertension, Osteoarthritis (OA), Prostate Disorder, Skin Disorder Additional Past Medical History / Comment(s): BACK PROBLEMS, TIA 2009-no res idual effects, Darier skin disease-no current problem, hx of elevated hgb, has seen [facility] for-has never had any tx. for History of Any Multi-Drug Resistant Organisms: None Reported Past Surgical History: Joint Replacement, Orthopedic Surgery Additional Past Surgical History / Comment(s): LEFT KNEE arthroscopy, RIGHT ROTATOR CUFF, RIGHT HAND CTS, right hip arthroplasty, right thumb fusion, rohan cataracts removed Past Anesthesia/Blood Transfusion Reactions: No Reported Reaction Past Psychological History: No Psychological Hx Reported Smoking Status: Former smoker Past Alcohol Use History: None Reported, Rare Additional Past Alcohol Use History / Comment(s): quit smoking 12 yrs. ago, 1ppd, since age of 17, still might have an occasional cigar Past Drug Use History: None Reported - Past Family History Mother Family Medical History: No Reported History Medications and Allergies Home Medications Medication Instructions Recorded Confirmed Type Metoprolol Tartrate [Lopressor] 50 mg PO BID 12/08/13 12/29/22 History Simvastatin [Zocor] 40 mg PO HS 12/08/13 12/29/22 History Tamsulosin HCl [Flomax] 0.8 mg PO HS 12/08/13 12/29/22 History Aspirin EC [Ecotrin] 81 mg PO DAILY 06/21/17 12/29/22 History Cholecalciferol [Vitamin D3 (25 4,000 unit PO HS 06/21/17 12/29/22 History Mcg = 1000 Iu)] Magnesium Oxide [Luevano] 500 mg PO HS 06/21/17 12/29/22 History Losartan/Hydrochlorothiazide 1 tab PO DAILY 12/23/22 12/29/22 History [Losartan-Hctz 100-25 mg Tab] tadalafiL 5 mg PO HS 12/24/22 12/29/22 History HYDROcodone/APAP 5-325MG [[place] 1 tab PO Q6HR PRN 7 Days #28 tab 12/29/22 Rx 5-325] Sennosides-Docusate Sodium 1 tab PO BID PRN #60 tablet 01/04/23 Rx [Senokot-S] Allergies Allergy/AdvReac Type Severity Reaction Status Date / Time No Known Allergies Allergy Verified 12/30/22 17:12 Surgical - Exam Vital Signs Temp Pulse Resp BP Pulse Ox 97.7 F 66 14 117/60 96 12/29/22 12:30 12/29/22 12:30 12/29/22 12:30 12/29/22 12:30 12/29/22 12:30 - General no distress, no pain - Eyes normal ocular movement, no pale - ENT normal nares, normal mucosa - Respiratory normal expansion, normal respiratory effort - Abdomen Abdomen: soft, non tender - Psychiatric oriented to time, oriented to person, oriented to place Results - Labs 01/03/23 05:56 01/03/23 05:56 Assessment and Plan Assessment: 73-year-old male with postoperative urinary retention. He does have underlying BPH with significant urinary symptoms at baseline. Most likely patient has incomplete bladder voiding at baseline worsened by his recent surgery and anesthetic. At this time patient can be discharged with a Cheek catheter and follow-up as an outpatient for 1 week for a trial of void. Discussed with patient nurse to teach patient how to remove his catheter 4 hours prior to his follow-up. Recommend continuing Flomax 0.8 mg for now
[2023-01-04] MEDS: ASPIRIN 81 MG PO SCH (10:05)
[2023-01-04] MEDS: LOSARTAN-HCTZ 50-12.5 MG 1 EACH TAB PO SCH (10:10)
[2023-01-04] MEDS: methylPREDNISolone SOD SUCCI 125 MG/2 ML VIAL IV SCH (10:10)
[2023-01-04] MEDS: METOPROLOL TARTRATE 50 MG TAB PO SCH (10:11)
== END 2023-01-04 09:58 | disposition home or self-care (01) | DRG 519 ==
LOC: OR 11:36 → 4SSUR 17:20 → OR 12-30 17:07 → 2SICU 12-30 21:34 → 4SSUR 12-31 21:52
PROVIDERS: ADMIT Orthopaedic Surgery Orthopaedic Surgery of the Spine; ATTEND Orthopaedic Surgery Orthopaedic Surgery of the Spine
PROC: 01NB0ZZ Release Lumbar Nerve, Open Approach (ICD-10-PCS; 2022-12-29)
PROC: 00UT0KZ Supplement Spinal Meninges with Nonautologous Tissue Substitute, Open Approach (ICD-10-PCS; principal; 2022-12-29 14:15)
PROC: 00UT0KZ Supplement Spinal Meninges with Nonautologous Tissue Substitute, Open Approach (ICD-10-PCS; 2022-12-30)
PROC: 01NB0ZZ Release Lumbar Nerve, Open Approach (ICD-10-PCS; 2022-12-30)
PROC: 00SY0ZZ Reposition Lumbar Spinal Cord, Open Approach (ICD-10-PCS; 2022-12-30)
DX: M48.062 Spinal stenosis, lumbar region with neurogenic claudication (principal); G96.09 Other spinal cerebrospinal fluid leak; G97.41 Accidental puncture or laceration of dura during a procedure; I10 Essential (primary) hypertension; M51.16 Intervertebral disc disorders with radiculopathy, lumbar region; M24.28 Disorder of ligament, vertebrae; F17.290 Nicotine dependence, other tobacco product, uncomplicated; E78.5 Hyperlipidemia, unspecified; M19.90 Unspecified osteoarthritis, unspecified site; N40.1 Benign prostatic hyperplasia with lower urinary tract symptoms; R33.8 Other retention of urine; G89.18 Other acute postprocedural pain; E66.9 Obesity, unspecified; D72.828 Other elevated white blood cell count; G47.33 Obstructive sleep apnea (adult) (pediatric); R53.83 Other fatigue; Y83.8 Other surgical procedures as the cause of abnormal reaction of the patient, or of later complication, without mention of misadventure at the time of the procedure; Y92.234 Operating room of hospital as the place of occurrence of the external cause; Z96.641 Presence of right artificial hip joint; Z68.33 Body mass index [BMI] 33.0-33.9, adult; Z79.82 Long term (current) use of aspirin; Z86.73 Personal history of transient ischemic attack (TIA), and cerebral infarction without residual deficits; Z79.899 Other long term (current) drug therapy
CPT/HCPCS: 36600; 71045; 72100; 80048; 80053; 82805; 85025; 94660

== ENCOUNTER 2023-08-08 11:33 | Emergency (ER) | payer MEDICARE, OTHER ==
--- NOTE | 2023-08-08 12:03 | ED ---
Back Pain HPI - General Source: patient, RN notes reviewed Limitations: no limitations <Katty Ott - Last Filed: 08/08/23 16:20> - General Source: patient, RN notes reviewed Mode of arrival: ambulatory Limitations: no limitations <Sivakumar Owen - Last Filed: 08/09/23 06:24> - General Chief Complaint: Back Pain/Injury Stated Complaint: Post-op back pain Time Seen by Provider: 08/08/23 11:50 - History of Present Illness Initial Comments: Chloe espino is a 73-year-old male with a past medical history of chronic back pain who presents emergency department chief complaint of lumbar back pain. Patient underwent a laminectomy with Dr. Anglin in december 2022. Patient's pain has been worsening especially of the left lower extremity where patient saw Dr. Anglin last week an an MRI was ordered. Patient was unable to complete MRI due to inability to lay flat, Dr. Anglin recommends that patient undergo a CT of the back. States that he last took [place] at 11 AM for pain relief. (Katty Ott) 73-year-old male presents emergency department with chief complaint of back pain, left leg severe pain. Patient states that he had surgery by Dr. Valdes in December in which he states he had a laminectomy and second surgery. Patient states he was doing well states that his pain was great until more a week in which she states he had a sudden onset of pain, popping sensation in his left thigh. He states that resolved and then he slowly developed pain he did follow- up with Dr. Anglin was placed on steroids states he felt great he was scheduled for an MRI but the pain is steadily increasing which he states he cannot lay flat for the MRI in which she was referred for CT. He denies any bowel, bladder incontinence retention no saddle anesthesias. (Sivakumar Owen) - Related Data Home Medications Medication Instructions Recorded Confirmed Metoprolol Tartrate [Lopressor] 50 mg PO BID 12/08/13 12/29/22 Simvastatin [Zocor] 40 mg PO HS 12/08/13 12/29/22 Tamsulosin HCl [Flomax] 0.8 mg PO HS 12/08/13 12/29/22 Aspirin EC [Ecotrin] 81 mg PO DAILY 06/21/17 12/29/22 Cholecalciferol [Vitamin D3 (25 4,000 unit PO HS 06/21/17 12/29/22 Mcg = 1000 Iu)] Magnesium Oxide [Luevano] 500 mg PO HS 06/21/17 12/29/22 Losartan/Hydrochlorothiazide 1 tab PO DAILY 12/23/22 12/29/22 [Losartan-Hctz 100-25 mg Tab] tadalafiL 5 mg PO HS 12/24/22 12/29/22 Previous Rx's Medication Instructions Recorded HYDROcodone/APAP 5-325MG [[place] 1 tab PO Q6HR PRN 7 Days #28 tab 12/29/22 5-325] Sennosides-Docusate Sodium 1 tab PO BID PRN #60 tablet 01/04/23 [Senokot-S] Allergies Allergy/AdvReac Type Severity Reaction Status Date / Time No Known Allergies Allergy Verified 08/08/23 11:38 Review of Systems ROS Other: All systems not noted in ROS Statement are negative. <Katty Ott - Last Filed: 08/08/23 16:20> ROS Other: All systems not noted in ROS Statement are negative. <Sivakumar Owen - Last Filed: 08/09/23 06:24> ROS Statement: Those systems with pertinent positive or pertinent negative responses have been documented in the HPI. 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 for History of Any Multi-Drug Resistant Organisms: None Reported Past Surgical History: Joint Replacement, Orthopedic Surgery Additional Past Surgical History / Comment(s): LEFT KNEE arthroscopy, RIGHT ROTATOR CUFF, RIGHT HAND CTS, right hip arthroplasty, right thumb fusion, rohan cataracts removed Past Anesthesia/Blood Transfusion Reactions: No Reported Reaction Past Psychological History: No Psychological Hx Reported Smoking Status: Former smoker Past Alcohol Use History: None Reported, Rare Past Drug Use History: None Reported - Past Family History Mother Family Medical History: No Reported History <Katty Ott - Last Filed: 08/08/23 16:20> General Exam Limitations: no limitations <Katty Ott - Last Filed: 08/08/23 16:20> General appearance: alert, in no apparent distress Head exam: Present: atraumatic, normocephalic, normal inspection Eye exam: Present: normal appearance, PERRL, EOMI. Absent: scleral icterus, conjunctival injection, periorbital swelling ENT exam: Present: normal exam, mucous membranes moist Neck exam: Present: normal inspection, full ROM. Absent: tenderness, meningismus, lymphadenopathy Respiratory exam: Present: normal lung sounds bilaterally. Absent: respiratory distress, wheezes, rales, rhonchi, stridor Cardiovascular Exam: Present: regular rate, normal rhythm, normal heart sounds. Absent: systolic murmur, diastolic murmur, rubs, gallop, clicks Extremities exam: Present: full ROM, tenderness. Absent: pedal edema Back exam: Present: tenderness, paraspinal tenderness. Absent: full ROM Neurological exam: Present: alert, oriented X3, CN II-XII intact, reflexes normal. Absent: motor sensory deficit <Sivakumar Owen - Last Filed: 08/09/23 06:24> - General Exam Comments Initial Comments: Visual Physical Exam Vital signs reviewed General: Well-appearing, nontoxic, no acute distress. Head: Normocephalic, atraumatic Eyes: PERRLA, EOMI ENT: Airway patent Chest: Nonlabored breathing Skin: No visual rash, normal skin tone Neuro: Alert and oriented 3 Musculoskeletal: No gross abnormalities (Katty Ott) Course Vital Signs 08/08/23 08/08/23 11:34 16:19 Temperature 97.4 F L 98.4 F Pulse Rate 63 71 Respiratory 18 18 Rate Blood Pressure 106/58 115/58 O2 Sat by Pulse 97 97 Oximetry Medical Decision Making <Katty Ott - Last Filed: 08/08/23 16:20> <Sivakumar Owen - Last Filed: 08/09/23 06:24> - Medical Decision Making I completed the quick note portion of this chart signed Katty Ott PA-C Was pt. sent in by a medical professional or institution (SHRUTHI Draper, MANAGER STORY, urgent care, hospital, or longterm...) When possible be specific @ -Patient was referred by Dr. Valdes for CT imaging of the lumbar spine due to left lower extremity pain and paresthesias. CT interpreted by me (1pt min.). @ -CT of the lumbar spine without contrast reveals no evidence for spinal fracture. Mild to moderate generative changes at multiple levels and were stenosis seen at the left L1-L2 and left L2-L3 neural foramina. Did you discuss the management of the patient with other professionals (professionals i.e. SHRUTHI Draper, MANAGER STORY, lab, RT, psych nurse, social work case manager, logging crew foreman, teacher, life science technical officer, case reviewer)? Give summary @ -I spoke with Dr. Valdes in regard to CT results. Discussion with patient at bedside states that his pain is mildly improved and is requesting that he be discharged and feels comfortable following up outpatient. Dr. Anglin is comfortable with patient following up in the outpatient office. Recommend that patient calls office to schedule follow-up appointment as early as tomorrow for further evaluation. (Katty Ott) Was pt. sent in by a medical professional or institution (SHRUTHI Draper, MANAGER STORY, urgent care, hospital, or longterm...) When possible be specific @ -Dr. Valdes Did you speak to anyone other than the patient for history (EMS, parent, family, police, friend...)? What history was obtained from this source @ -No Did you review nursing and triage notes (agree or disagree)? Why? @ -I reviewed and agree with nursing and triage notes Were old charts reviewed (outside hosp., previous admission, EMS record, old EKG, old radiological studies, urgent care reports/EKG's, longterm records)? Report findings @ -No old charts were reviewed Differential Diagnosis (chest pain, altered mental status, abdominal pain women, abdominal pain men, vaginal bleeding, weakness, fever, dyspnea, syncope, headache, dizziness, GI bleed, back pain, seizure, CVA, palpatations, mental health, musculoskeletal)? @ -Differential Back Pain: Strain, zoster, cauda equina syndrome, epidural abscess, vertebral osteomyelitis, discitis, fracture, subluxation, disc herniation, DJD, spinal stenosis, dissection, AAA, pancreatitis, peptic ulcer disease, pyelonephritis, kidney stone, this is not meant to be an all-inclusive list. EKG interpreted by me (3pts min.). @ -None X-rays interpreted by me (1pt min.). @ -None done CT interpreted by me (1pt min.). @ -CT lumbar spine showing spinal stenosis L1-L2 L2-L3 U/S interpreted by me (1pt. min.). @ -None done What testing was considered but not performed or refused? (CT, X-rays, U/S, labs)? Why? @ -None What meds were considered but not given or refused? Why? @ -None Did you discuss the management of the patient with other professionals (professionals i.e. , PA, MANAGER STORY, lab, RT, psych nurse, social work case manager, logging crew foreman, teacher, life science technical officer, case reviewer)? Give summary @ -[Dr. Valdes regarding CT results Was smoking cessation discussed for >3mins.? @ -No Was critical care preformed (if so, how long)? @ -No Were there social determinants of health that impacted care today? How? (Homelessness, low income, unemployed, alcoholism, drug addiction, transportation, low edu. Level, literacy, decrease access to med. care, usp, rehab)? @ -No Was there de-escalation of care discussed even if they declined (Discuss DNR or withdrawal of care, Hospice)? DNR status @ -No What co-morbidities impacted this encounter? (DM, HTN, Smoking, COPD, CAD, Cancer, CVA, ARF, Chemo, Hep., AIDS, mental health diagnosis, sleep apnea, morbid obesity)? @ -None Was patient admitted / discharged? Hospital course, mention meds given and route, prescriptions, significant lab abnormalities, going to OR and other pertinent info. @ -Discharged patient and surgeon was updated on CT findings he has no red flag symptoms he is discharged in stable condition with close follow-up. Undiagnosed new problem with uncertain prognosis? @ -No Drug Therapy requiring intensive monitoring for toxicity (Heparin, Nitro, Insulin, Cardizem)? @ -No Were any procedures done? @ -No Diagnosis/symptom? @ -Lumbar stenosis, lumbar radiculopathy Acute, or Chronic, or Acute on Chronic? @ -Acute Uncomplicated (without systemic symptoms) or Complicated (systemic symptoms)? @ -Uncomplicated Side effects of treatment? @ -No Exacerbation, Progression, or Severe Exacerbation? @ -No Poses a threat to life or bodily function? How? (Chest pain, [place], [place], pneumonia, PE, COPD, DKA, ARF, appy, cholecystitis, CVA, Diverticulitis, Homicidal, Suicidal, threat to staff... and all critical care pts) @ -No (Sivakumar Owen) Disposition Is patient prescribed a controlled substance at d/c from ED?: No Time of Disposition: 15:56 <Katty Ott - Last Filed: 08/08/23 16:20> <Sivakumar Owen - Last Filed: 08/09/23 06:24> Clinical Impression: Lumbar back pain with radiculopathy affecting left lower extremity, Foraminal stenosis of lumbar region Disposition: HOME SELF-CARE Condition: Good Additional Instructions: Return to the emergency department if your symptoms worsen or do not improve. Follow up as scheduled with Dr. Valdes next Tuesday for further evaluation. Referrals: Bev Macdonald MD [Primary Care Provider] - 1-2 days
[2023-08-08 13:28] VITALS: RESP 18
[2023-08-08] MEDS: oxyCODONE-APAP 7.5-325MG 1 EACH TAB PO STA (15:08)
--- NOTE | 2023-08-08 15:46 | CT ---
EXAMINATION TYPE: CT lumbar spine wo con CT DLP: 1648.6 mGycm, Automated exposure control for dose reduction was used. DATE OF EXAM: 08/08/2023 12:47 PM COMPARISON: None.. CLINICAL INDICATION:Male, 73 years old with history of laminectomy 12/2022, left leg pain; PHH, Marcel ectomy 12/2022, left leg pain TECHNIQUE: Multiple axial images were obtained from the midportion of T11 through the sacroiliac abbey nts. Soft tissue and bone windows in coronal and sagittal planes were obtained and reviewed. 3-D ref ormats of the bones were created on a separate workstation and submitted for review. Contrast used: mL of , (None, if empty). Oral contrast used: (None, if empty). FINDINGS: Alignment: There are 5 lumbar type vertebral bodies within normal alignment. Bone: Vertebral body heights are intact. Normal AP alignment is seen. Multiple levels demonstrate va cuum disc phenomenon and loss of disc height. Endplate spondylosis is present. Discs: T12-L1: No spinal canal or neural foraminal stenosis is identified. L1-L2: Diffuse disc bulge/disc osteophyte. Mild right neural foraminal stenosis and mild, left greate r than right, left stenosis L2-L3: Diffuse disc bulge/disc osteophyte with facet arthritis. Mild/moderate right neural foraminal stenosis and severe left neural foraminal stenosis L3-L4: Diffuse disc bulge/disc osteophyte. Facet joint arthritis. Laminectomy at this level. Moderate bilateral neural foraminal stenosis. L4-L5: No spinal canal or neural foraminal stenosis is identified. L5-S1: No spinal canal or neural foraminal stenosis is identified. Other: None IMPRESSION: 1. No evidence for spinal fracture. 2. Mild to moderate degenerative changes at multiple levels. Worst stenoses seen at the left L1-L2 an d left L2-L3 neural foramen.
[2023-08-08 16:20] VITALS: BP 115/58; PULSE 71; TEMP 98.4
== END 2023-08-08 16:20 | disposition home or self-care (01) ==
LOC: EC 11:33
DX: G89.29 Other chronic pain (principal); M48.061 Spinal stenosis, lumbar region without neurogenic claudication; M54.16 Radiculopathy, lumbar region; Z87.891 Personal history of nicotine dependence; Z86.73 Personal history of transient ischemic attack (TIA), and cerebral infarction without residual deficits
CPT/HCPCS: 72131; 99283

== ENCOUNTER 2023-08-14 18:28 | Inpatient (IN) | payer MEDICARE, OTHER ==
[2023-08-14] MEDS: MORPHINE SULFATE 4 MG/ML SYRINGE IVP STA (19:45)
[2023-08-14] MEDS: DEXAMETHASONE SOD PHOSPHATE 10 MG/ML 1 ML VIAL IVP STA (19:46)
[2023-08-14] MEDS: SODIUM CHLORIDE 0.9% 1,000 ML IV STA (19:46)
[2023-08-14] MEDS: LIDOCAINE 4% PATCH TOPICAL STA (19:46)
[2023-08-14 19:56] LABS: Basophils # (A) 0.1 k/uL (0-0.2); Basophils % (A) 1 %; Eosinophils # (A) 0.2 k/uL (0-0.7); Eosinophils % (A) 2 %; HGB 18.5 gm/dL (13.0-17.5); Lymphocytes # (A) 1.7 k/uL (1.0-4.8); Lymphocytes % (A) 15 %; MCH 30.5 pg (25.0-35.0); MCHC 33.6 g/dL (31.0-37.0); MCV 90.6 fL (80.0-100.0); Mean Platelet Volume 7.4; Monocytes # (A) 0.8 k/uL (0-1.0); Monocytes % (A) 7 %; Neutrophils # (A) 8.3 k/uL (1.3-7.7); Neutrophils % (A) 75 %; Platelet Count 150 k/uL (150-450); RBC 6.08 m/uL (4.30-5.90); RDW 13.3 % (11.5-15.5); WBC 11.1 k/uL (3.8-10.6)
[2023-08-14 19:58] LABS: HCT 55.1 % (39.0-53.0)
--- NOTE | 2023-08-14 20:01 | ED ---
General Adult HPI - General Chief complaint: Back Pain/Injury Stated complaint: back pain Time Seen by Provider: 08/14/23 19:18 Source: patient, EMS, RN notes reviewed, old records reviewed Mode of arrival: EMS Limitations: no limitations - History of Present Illness Initial comments: Patient is a 73-year-old male who presents emergency department complaining of acute on chronic lower back pain. Patient recently received a laminectomy and O ctober [address] Anglin. Has been doing well however over the last 7 to 10 days has been dealing with worsening back pain. Was seen here 1 week ago for back pain. Was symptomatically treated and CT at that time revealed left neural foraminal stenosis at L1-L2 and L2-L3 as well as mild to moderate degenerative changes throughout. Disc bulging throughout the lumbar spine as well. He was improved and went home however symptoms have not improved at all. He followed up with Dr. Anglin and went to get an MRI on Tuesday but this was unsuccessful as he was unable to lay flat. Has basically been bedbound for the last 1 to 2 days presents over concern for worsening pain. Is on [place] at home as well as gabapentin. Denies any new urinary or bowel incontinence or retention but states he has chronic decreased sensation in his rectum since the laminectomy in December. Describes the pain as sharp, aching and shooting down from his middle lower lumbar spine into his left butt cheek and down the posterior left leg. Denies any new saddle paresthesias. Presents due to worsening pain and inabil ity to get around which is significantly below his baseline.Is any new trauma or injury to cause the back pain. States has been like this since . - Related Data Home Medications Medication Instructions Recorded Confirmed Metoprolol Tartrate [Lopressor] 50 mg PO BID 12/08/13 08/14/23 Simvastatin [Zocor] 40 mg PO DAILY 12/08/13 08/14/23 Magnesium Oxide [Luevano] 500 mg PO HS 06/21/17 08/14/23 Losartan/Hydrochlorothiazide 1 tab PO DAILY 12/23/22 08/14/23 [Losartan-Hctz 100-25 mg Tab] Gabapentin 300 mg PO TID 08/14/23 08/14/23 HYDROcodone/APAP 5-325MG [[place] 1 tab PO Q4-6H PRN 08/14/23 08/14/23 5-325] predniSONE 10 mg PO DAILY 08/14/23 08/14/23 Allergies Allergy/AdvReac Type Severity Reaction Status Date / Time No Known Allergies Allergy Verified 08/14/23 20:11 Review of Systems ROS Statement: Those systems with pertinent positive or pertinent negative responses have been documented in the HPI. Review of Systems: CONST: Denies fever EYES: Denies blurry vision ENT: Denies nasal congestion C/V: Denies Chest pain RESP: Denies shortness of breath GI: Denies abdominal pain : Denies dysuria SKIN: Denies rash. MSK: Endorses back pain NEURO: Denies headache ROS Other: All systems not noted in ROS Statement are negative. 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 for History of Any Multi-Drug Resistant Organisms: None Reported Past Surgical History: Joint Replacement, Orthopedic Surgery Additional Past Surgical History / Comment(s): LEFT KNEE arthroscopy, RIGHT ROTATOR CUFF, RIGHT HAND CTS, right hip arthroplasty, right thumb fusion, rohan cataracts removed Past Anesthesia/Blood Transfusion Reactions: No Reported Reaction Past Psychological History: No Psychological Hx Reported Smoking Status: Former smoker Past Alcohol Use History: None Reported, Rare Past Drug Use History: None Reported - Past Family History Mother Family Medical History: No Reported History General Exam - General Exam Comments Initial Comments: General: Appears in moderate distress at this time due to significant worsening back pain. HEAD: Normal with no signs of head trauma. EYES: PERRLA, EOMI, conjunctiva normal, no discharge. ENT: Hearing grossly intact, normal oropharynx. RESPIRATORY: Clear breath sounds bilaterally. No wheezes, rales, or rhonchi. C/V: Regular rate and rhythm. S1 and S2 auscultated, no edema, peripheral pulses 2+ and intact throughout ABD: Abd is soft, nontender, nondistended EXT: Normal range of motion, no obvious deformity. Reduced range of motion of the left leg secondary to pain. Seems to be somewhat sciatica pain. Pain primarily in the lumbar spine as well as posterior left buttock and hip. No obvious deformities appreciated. SKIN: Surgical scar appears within acceptable limits. NEURO: Alert and oriented x 4. No obvious acute deficits. Weakness in the left lower extremity secondary to pain in his back. Limitations: no limitations Course Vital Signs 08/14/23 18:32 Temperature 98.8 F Pulse Rate 100 Respiratory 20 Rate Blood Pressure 133/76 O2 Sat by Pulse 98 Oximetry Medical Decision Making - Medical Decision Making Was pt. sent in by a medical professional or institution (, PA, NEONATOLOGIST, urgent care, hospital, or skilled nursing...) When possible be specific @ -No Did you speak to anyone other than the patient for history (EMS, parent, family, police, friend...)? What history was obtained from this source @ -No Did you review nursing and triage notes (agree or disagree)? Why? @ -I reviewed and agree with nursing and triage notes Were old charts reviewed (outside hosp., previous admission, EMS record, old EKG, old radiological studies, urgent care reports/EKG's, skilled nursing records)? 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 Differential Diagnosis (chest pain, altered mental status, abdominal pain women, abdominal pain men, vaginal bleeding, weakness, fever, dyspnea, syncope, headache, dizziness, GI bleed, back pain, seizure, CVA, palpatations, mental health, musculoskeletal)? @ -Differential Back Pain: Strain, zoster, cauda equina syndrome, epidural abscess, vertebral osteomyelitis, discitis, fracture, subluxation, disc herniation, DJD, spinal stenosis, dissection, AAA, pancreatitis, peptic ulcer disease, pyelonephritis, kidney stone, this is not meant to be an all-inclusive list. EKG interpreted by me (3pts min.). @ -As above X-rays interpreted by me (1pt min.). @ -None done CT interpreted by me (1pt min.). @ -None done U/S interpreted by me (1pt. min.). @ -None done What testing was considered but not performed or refused? (CT, X-rays, U/S, labs)? Why? @ -Considered CT imaging however patient recently had CT imaging done of the lumbar spine on August 07. Showed degenerative changes as well as neuroforaminal stenosis on the left. What meds were considered but not given or refused? Why? @ -None Did you discuss the management of the patient with other professionals (professionals i.e. , SHRUTHI, NEONATOLOGIST, lab, RT, psych nurse, mental health social worker, irrigator gravity flow, teacher, transit authority police officer, caser in)? Give summary @ -Spoke with Dr. Chen of [employer] who works with Dr. Valdes. Was in agreement with the plan and accepted the consult. Agreed that this does not sound like acute cauda equina syndrome. Spoke with Dr. Doe who accepted the admission. Was smoking cessation discussed for >3mins.? @ -No Was critical care preformed (if so, how long)? @ -No Were there social determinants of health that impacted care today? How? (Homelessness, low income, unemployed, alcoholism, drug addiction, transportation, low edu. Level, literacy, decrease access to med. care, intermediate, rehab)? @ -No Was there de-escalation of care discussed even if they declined (Discuss DNR or withdrawal of care, Hospice)? DNR status @ -No What co-morbidities impacted this encounter? (DM, HTN, Smoking, COPD, CAD, Cancer, CVA, ARF, Chemo, Hep., AIDS, mental health diagnosis, sleep apnea, morbid obesity)? @ -Lumbar laminectomy Was patient admitted / discharged? Hospital course, mention meds given and route, prescriptions, significant lab abnormalities, going to OR and other pertinent info. @ -Based on patient's presentation and physical exam, presents emergency department complaining of lumbar spine pain. Had a laminectomy back in December. Follows up with Dr. Valdes. Patient has chronic decreased sensation of the rectum. Otherwise no new symptoms suggestive of cauda equina syndrome. Patient has debilitating back pain has been unable to move around at home. Was unable to obtain his outpatient MRI on Tuesday due to inability to lay flat. Presents for further evaluation at this time. He received fentanyl which did not significantly improve the pain. He will be given a dose of IV morphine as well as IV fluids. Will start the patient on IV steroids as well as he has been on prednisone outpatient. Otherwise patient will have basic labs obtained. Patient may require MRI. Patient was in agreement this plan. I do not have concern for acute cauda equina syndrome at this time as the rectal numbness and mild saddle numbness is chronic since his laminectomy in December. Primary new symptom is pain as well as range of motion in the left leg secondary to pain. Does not hear to be focally weak. We will continue IV steroids at this time. On reevaluation, patient has no significant improvement in symptoms. At this time I will contact the orthopedic surgeon on-call covering Dr. Valdes's group, Dr. Chen. I do believe it is reasonable for admission at this time for pain control and possible MRI. I spoke with Dr. Chen who was in agreement with this plan, and agreed that this does not sound like acute cauda equina syndrome.. They will be the consulting service. I spoke with Dr. Doe who accepted the admission. Patient's laboratory studies returned remarkable for mild hypokalemia and patient was given potassium. MRI was ordered, and I ordered it with and without contrast as patient and family specifically said that was the original order. Patient was admitted. Undiagnosed new problem with uncertain prognosis? @ -No Drug Therapy requiring intensive monitoring for toxicity (Heparin, Nitro, Insulin, Cardizem)? @ -No Were any procedures done? @ -No Diagnosis/symptom? @ -Intractable back pain, hypokalemia Acute, or Chronic, or Acute on Chronic? @ -Acute Uncomplicated (without systemic symptoms) or Complicated (systemic symptoms)? @ -Complicated Side effects of treatment? @ -None Exacerbation, Progression, or Severe Exacerbation] @ -No Poses a threat to life or bodily function? @ -Possibly, yes if worsening clinical symptoms. It is debilitating. - Lab Data Result diagrams: 08/14/23 19:48 08/14/23 19:48 Lab Results 08/14/23 08/14/23 08/14/23 Range/Units 19:48 19:48 19:48 WBC 11.1 H (3.8-10.6) k/uL RBC 6.08 H (4.30-5.90) m/uL Hgb 18.5 H (13.0-17.5) gm/dL Hct 55.1 H (39.0-53.0) % MCV 90.6 (80.0-100.0) fL MCH 30.5 (25.0-35.0) pg MCHC 33.6 (31.0-37.0) g/dL RDW 13.3 (11.5-15.5) % Plt Count 150 (150-450) k/uL MPV 7.4 Neutrophils % 75 % Lymphocytes % 15 % Monocytes % 7 % Eosinophils % 2 % Basophils % 1 % Neutrophils # 8.3 H (1.3-7.7) k/uL Lymphocytes # 1.7 (1.0-4.8) k/uL Monocytes # 0.8 (0-1.0) k/uL Eosinophils # 0.2 (0-0.7) k/uL Basophils # 0.1 (0-0.2) k/uL Sodium 141 (137-145) mmol/L Potassium 3.3 L (3.5-5.1) mmol/L Chloride 105 (98-107) mmol/L Carbon Dioxide 29 (22-30) mmol/L Anion Gap 7 mmol/L BUN 18 (9-20) mg/dL Creatinine 0.75 (0.66-1.25) mg/dL Est GFR (CKD-EPI)AfAm >90 (>60 ml/min/1.73 sqM) Est GFR (CKD-EPI)NonAf >90 (>60 ml/min/1.73 sqM) Glucose 124 H (74-99) mg/dL Calcium 9.2 (8.4-10.2) mg/dL Total Bilirubin 1.3 (0.2-1.3) mg/dL AST 32 (17-59) U/L ALT 30 (4-49) U/L Alkaline Phosphatase 70 (38-126) U/L Total Protein 6.5 (6.3-8.2) g/dL Albumin 4.1 (3.5-5.0) g/dL Urine Color Colorless Urine Appearance Cloudy (Clear) Urine pH 8.0 (5.0-8.0) Ur Specific [place] 1.011 (1.001-1.035) Urine Protein Negative (Negative) Urine Glucose (UA) Negative (Negative) Urine Ketones Negative (Negative) Urine Blood Trace H (Negative) Urine Nitrite Negative (Negative) Urine Bilirubin Negative (Negative) Urine Urobilinogen <2.0 (<2.0) mg/dL Ur Leukocyte Esterase Negative (Negative) Urine RBC 4 (0-5) /hpf Urine WBC 3 (0-5) /hpf Amorphous Sediment Rare H (None) /hpf Urine Bacteria Rare H (None) /hpf Urine Mucus Rare H (None) /hpf Disposition Clinical Impression: Intractable back pain, Hypokalemia Disposition: ADMITTED IP TO THIS HOSP Condition: Stable Referrals: Bev Macdonald MD [Primary Care Provider] - 1-2 days Time of Disposition: 20:26
[2023-08-14 20:08] LABS: ALT 30 U/L (4-49); AST 32 U/L (17-59); African American GFR (CKD) >90 (>60 ml/min/1.73 sqM); Albumin 4.1 g/dL (3.5-5.0); Alkaline Phosphatase 70 U/L (38-126); Anion Gap 7 mmol/L; Blood Urea Nitrogen 18 mg/dL (9-20); Calcium 9.2 mg/dL (8.4-10.2); Carbon Dioxide 29 mmol/L (22-30); Chloride 105 mmol/L (98-107); Glucose 124 mg/dL (74-99); Non-African American GFR(CKD) >90 (>60 ml/min/1.73 sqM); Potassium 3.3 mmol/L (3.5-5.1); Sodium 141 mmol/L (137-145); Total Bilirubin 1.3 mg/dL (0.2-1.3); Total Protein 6.5 g/dL (6.3-8.2)
[2023-08-14] MEDS ORDERED: NALOXONE 0.4 MG/ML 1 ML VIAL IV PRN (20:22)
[2023-08-14] MEDS ORDERED: CYCLOBENZAPRINE 5 MG TAB PO PRN (20:24)
[2023-08-14 20:33] LABS: Amorphous Sediment,Urine Rare /hpf; Appearance,Urine Cloudy (Clear); Bacteria,Urine Rare /hpf; Bilirubin,Urine Negative (Negative); Blood,Urine Trace (Negative); Color,Urine Colorless; Glucose,Urine (UA) Negative (Negative); Ketones,Urine Negative (Negative); Leukocyte Esterase,Urine Negative (Negative); Mucus,Urine Rare /hpf; Nitrite,Urine Negative (Negative); Protein,Urine Negative (Negative); RBC,Urine 4 /hpf (0-5); Specific Gravity,Urine 1.011 (1.001-1.035); Urobilinogen,Urine <2.0 mg/dL (<2.0); WBC,Urine 3 /hpf (0-5)
[2023-08-14] MEDS: CYCLOBENZAPRINE 5 MG TAB PO STA (20:45)
[2023-08-14] MEDS: METOPROLOL TARTRATE 50 MG TAB PO SCH (20:45)
[2023-08-14] MEDS: POTASSIUM CHLORIDE ER 20 MEQ TAB.ER PO STA (20:46)
[2023-08-14] MEDS: KETOROLAC 15 MG/ML 1 ML VIAL IVP STA (20:47)
[2023-08-14] MEDS: HEPARIN SODIUM,PORCINE 5,000 UNIT/ML 1 ML VIAL SQ SCH (22:29)
[2023-08-14] MEDS: GABAPENTIN 300 MG CAP PO SCH (22:31)
[2023-08-14] MEDS: DEXAMETHASONE SOD PHOSPHATE 4 MG/ML 1 ML VIAL IVP SCH (23:56)
[2023-08-15] MEDS: MORPHINE SULFATE 4 MG/ML SYRINGE IV PRN (00:07)
[2023-08-15] MEDS: KETOROLAC 15 MG/ML 1 ML VIAL IVP PRN (05:28)
--- NOTE | 2023-08-15 08:43 | P.CNOR ---
History of Present Illness - [facility] Consult date: 08/15/23 Requesting physician: Rito Sánchez Consult reason: low back pain, other (Severe left lower extremity radiculopathy and difficulty with mobilization) History of present illness: Patient is a very pleasant 73-year-old male who is well-known to our service who is seen examined at bedside for further evaluation of his lumbar spine. He is known to have previously undergone laminectomy decompression in December [address] Valdes. He has been following with us in outpatient setting for treatment and evaluation. He has had some ongoing difficulty with his lumbar spine and left lower extremity. He was recently on a prednisone taper and symptoms were significantly improved for approximately 3 days. He states he was in [facility] over and his pain became severe and debilitating. Since that time has had significant difficulty with mobilization and regular activities of daily living. He does have severe low back pain and severe left lower extremity radiculopathy. His pain is significant exacerbated when lying down. He feels a hot burning sensation in his left lower extremity. He currently denies any right lower extremity radiculopathy. His pain is better controlled if he is able to sit upright but is not well-controlled. He denies any recent injuries. He is awake, alert, and oriented x 3. He has been experiencing some ongoing chronic left lower extremity swelling. This has been worked on with physical therapy. He was previously scheduled to obtain MRI imaging in the outpatient setting but was unable to lie flat. He did undergo lumbar CT imaging which showed multilevel foraminal stenosis with evidence of laminectomy defect. He was brought to [facility] yesterday via ambulance due to his significant pain and difficulty controlling his pain in the outpatient setting. MRI imaging of the lumbar spine with and without contrast has been ordered. MRI states this will be unable to be performed today due to already scheduled MRI imaging. He is admitted to medicine. His other medical diagnoses include hyperlipidemia, hypertension, prostate disorder, and history of CVA/TIA. 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 for History of Any Multi-Drug Resistant Organisms: None Reported Past Surgical History: Joint Replacement, Orthopedic Surgery Additional Past Surgical History / Comment(s): LEFT KNEE arthroscopy, RIGHT ROTATOR CUFF, RIGHT HAND CTS, right hip arthroplasty, right thumb fusion, rohan cataracts removed Past Anesthesia/Blood Transfusion Reactions: No Reported Reaction Past Psychological History: No Psychological Hx Reported Smoking Status: Former smoker Past Alcohol Use History: None Reported, Rare Additional Past Alcohol Use History / Comment(s): quit smoking 12 yrs. ago, 1ppd, since age of 17, still might have an occasional cigar Past Drug Use History: None Reported - Past Family History Mother Family Medical History: No Reported History Medications and Allergies Home Medications Medication Instructions Recorded Confirmed Type Metoprolol Tartrate [Lopressor] 50 mg PO BID 12/08/13 08/14/23 History Simvastatin [Zocor] 40 mg PO DAILY 12/08/13 08/14/23 History Magnesium Oxide [Luevano] 500 mg PO HS 06/21/17 08/14/23 History Losartan/Hydrochlorothiazide 1 tab PO DAILY 12/23/22 08/14/23 History [Losartan-Hctz 100-25 mg Tab] Gabapentin 300 mg PO TID 08/14/23 08/14/23 History HYDROcodone/APAP 5-325MG [[place] 1 tab PO Q4-6H PRN 08/14/23 08/14/23 History 5-325] predniSONE 10 mg PO DAILY 08/14/23 08/14/23 History Allergies Allergy/AdvReac Type Severity Reaction Status Date / Time No Known Allergies Allergy Verified 08/14/23 20:11 Physical Examination Physical exam: Patient is awake, alert, and oriented 3 Vital signs stable Good chest excursion with deep inspiration and expiration Patient is currently sitting upright in a chair leaning to the right and has significant difficulty with being comfortable Examination of lumbar spine reveals skin is intact with no abrasions, lacerations, or bruises; no erythema, purulence or signs of infection Evidence of well-healed lumbar surgical incision site Dorsiflexion, plantarflexion, and extensor hallucis longus positive sustained bilaterally Patient is able to perform active range of motion of his left lower extremity bu t has difficulty doing so No signs or symptoms of DVT; no calf pain Generalized left lower extremity swelling 2+ pitting edema left foot Neurovascularly intact Results Pertinent studies: CT of the lumbar spine taken on 08/08/2023: L1-2 diffuse disc bulge and osteophytic formation with left greater than right foraminal stenosis; L2-3 diffuse disc bulge and osteophytic formation with facet spondylosis resulting in severe left and moderate right neuroforaminal stenosis; L3-4 disc bulge with osteophyte complex and facet spondylosis with evidence of previous laminectomy defect with moderate to severe bilateral foraminal stenosis - Labs Labs: Abnormal Lab Results - Last 24 Hours (Table) 08/14/23 08/14/23 08/14/23 Range/Units 19:48 19:48 19:48 WBC 11.1 H (3.8-10.6) k/uL RBC 6.08 H (4.30-5.90) m/uL Hgb 18.5 H (13.0-17.5) gm/dL Hct 55.1 H (39.0-53.0) % Neutrophils # 8.3 H (1.3-7.7) k/uL Potassium 3.3 L (3.5-5.1) mmol/L Glucose 124 H (74-99) mg/dL Urine Blood Trace H (Negative) Amorphous Sediment Rare H (None) /hpf Urine Bacteria Rare H (None) /hpf Urine Mucus Rare H (None) /hpf H & H 08/14/23 Range/Units 19:48 Hgb 18.5 H (13.0-17.5) gm/dL Hct 55.1 H (39.0-53.0) % Result Diagrams: 08/14/23 19:48 08/14/23 19:48 Assessment and Plan Assessment: Assessment: Intractable low back pain Severe debilitating left lower extremity radiculopathy Difficulty with mobilization and regular activities of daily living due to low back pain and left lower extremity History L3-4 laminectomy decompression performed on 12/30/2023 L1-2, L2-3, and L3-4 foraminal stenosis Chronic left lower extremity swelling Hyperlipidemia Hypertension Prostate disorder History of CVA/TIA (1) Osteophyte Current Visit: Yes Status: Acute Code(s): M25.70 - OSTEOPHYTE, UNSPECIFIED JOINT SNOMED Code(s): 131704930417542 (2) Lumbar facet arthropathy Current Visit: Yes Status: Acute Code(s): M47.816 - SPONDYLOSIS W/O MYELOPATHY OR RADICULOPATHY, LUMBAR REGION SNOMED Code(s): 507624749 (3) Difficulty in walking Current Visit: Yes Status: Acute Code(s): R26.2 - DIFFICULTY IN WALKING, NOT ELSEWHERE CLASSIFIED SNOMED Code(s): 120537504 (4) Intractable back pain Current Visit: Yes Status: Acute Code(s): M54.9 - DORSALGIA, UNSPECIFIED SNOMED Code(s): 993093896 (5) Foraminal stenosis of lumbar region Current Visit: No Status: Acute Code(s): M48.061 - SPINAL STENOSIS, LUMBAR REGION WITHOUT NEUROGENIC KARINA SNOMED Code(s): 629109618 (6) History of CVA (cerebrovascular accident) Current Visit: No Status: Acute Code(s): Z86.73 - PRSNL HX OF TIA (TIA), AND CEREB INFRC W/O RESID DEFICITS SNOMED Code(s): 585134852 (7) Hyperlipidemia Current Visit: No Status: Acute Code(s): E78.5 - HYPERLIPIDEMIA, UNSPECIFIED SNOMED Code(s): 10612278 (8) Hypertension Current Visit: No Status: Acute Code(s): I10 - ESSENTIAL (PRIMARY) HYPERTENSION SNOMED Code(s): 45180786 (9) Lumbar back pain with radiculopathy affecting left lower extremity Current Visit: No Status: Acute Code(s): M54.16 - RADICULOPATHY, LUMBAR REGION SNOMED Code(s): 653036997 (10) Prostate disorder Current Visit: No Status: Acute Code(s): N42.9 - DISORDER OF PROSTATE, UNSPECIFIED SNOMED Code(s): 30441648 Plan: Plan: 1. has been experiencing intractable low back pain with left lower extremity radiculopathy. He has significant difficulty with his mobilization on his left lower extremity. He is having difficulty with pain control. He has a history of L3-4 laminectomy and decompression on 12/29/2022. More recently his symptoms have been worsening and he is having significant difficulty with controlling his symptoms in the outpatient setting. He was able to have CT imaging of the lumbar spine on 08/08/2023. We attempted to previously obtain lumbar MRI imaging but he was unable to tolerate this. Currently are planning to obtain lumbar MRI imaging with and without contrast for further evaluation. MRI states this is unable to be performed today. We will try to plan for pain control today with plans for MRI imaging to be performed tomorrow, 08/16/2023. He will be given Valium 5 mg prior to his lumbar MRI imaging as he has had significant difficulty with relaxing and lying comfortably for MRI imaging. We will add hydrocodone 7.5 mg 1-2 tabs every 4 hours as needed for pain and cyclobenzaprine 10 mg, 1 tab, 3 times daily as needed for muscle spasm. Will continue to follow patient closely. Will follow-up following lumbar MRI imaging for further evaluation and to discuss further treatment options including the possibility of further surgical intervention. 2. Patient will be seen examined by medicine for his other medical diagnoses. He is admitted to medicine. Time with Patient: Greater than 30
[2023-08-15] MEDS: ATORVASTATIN 20 MG TAB PO SCH (08:52)
[2023-08-15] MEDS: LOSARTAN 50 MG TAB PO SCH (08:52)
[2023-08-15] MEDS: HYDROcodone/APAP 7.5-325MG 1 EACH TAB PO PRN (08:53)
[2023-08-15] MEDS: CYCLOBENZAPRINE 10 MG TAB PO PRN (08:54)
[2023-08-15] MEDS: hydroCHLOROthiazide 25 MG TAB PO SCH (09:27)
[2023-08-15 10:17] LABS: Basophils # (A) 0.03 X 10*3/uL (0.00-0.10); Basophils % (A) 0.3 %; Eosinophils # (A) 0 X 10*3/uL (0.04-0.35); Eosinophils % (A) 0 %; HCT 53.6 % (39.6-50.0); HGB 18.2 g/dL (13.0-17.0); Lymphocytes # (A) 1.08 X 10*3/uL (0.90-5.00); MCH 30.8 pg (27.0-32.0); MCV 90.7 FL (80.0-97.0); Mean Platelet Volume 9.7 FL (9.5-12.2); Monocytes # (A) 0.36 X 10*3/uL (0.20-1.00); Monocytes % (A) 3.3 %; NRBC Per 100 WBC 0 X 10*3/uL (0.00-0.01); Neutrophils # (A) 9.28 X 10*3/uL (1.80-7.70); Platelet Count 207 X 10*3/uL (140-440); RBC 5.91 X 10*6/uL (4.40-5.60); RDW 13.4 % (11.5-14.5); WBC 10.79 X 10*3/uL (4.50-10.00)
[2023-08-15 10:33] LABS: ALT 30 U/L (10-49); AST 24 U/L (14-35); Albumin 4.4 g/dL (3.8-4.9); Alkaline Phosphatase 62 U/L (41-126); Blood Urea Nitrogen 19.8 mg/dL (9.0-27.0); Calcium 9.7 mg/dL (8.7-10.3); Carbon Dioxide 25.2 mmol/L (21.6-31.8); Chloride 105 mmol/L (96-109); Globulin 2.1 g/dL (1.6-3.3); Glucose 130 mg/dL (70-110); Potassium 4.3 mmol/L (3.5-5.5); Sodium 142 mmol/L (135-145); Total Bilirubin 0.8 mg/dL (0.3-1.2); Total Protein 6.5 g/dL (6.2-8.2)
[2023-08-15] MEDS ORDERED: HYDROcodone/APAP 5-325MG 1 EACH TAB PO PRN (11:28)
[2023-08-15] MEDS: predniSONE 10 MG TAB PO SCH (12:46)
[2023-08-15] MEDS ORDERED: LORazepam 1 MG/0.5 ML VIAL IV ONE (16:00)
[2023-08-15] MEDS: LORazepam 2 MG/ML INJ IV ONE (16:06)
--- NOTE | 2023-08-15 16:45 | P.HPIM ---
History of Present Illness H&P Date: 08/15/23 Michael Pearson, is a 73 year old male who presented to [facility] emergency room with a chief complaint of severe intractable intractable low back pain, he previously had laminectomy decompression in December [address] Valdes. He was evaluated in the emergency room vital examination on presentation revealed a temperature of 98.8 pulse 100 respiration 20 blood pressure 133/76 pulse ox 98% on room air Laboratory data revealed a white blood count of 11.1 hemoglobin 18.5 platelet count 150 potassium 3.3 urine analysis revealed no significant evidence of u rinary tract infection Patient was admitted to medical floor for further evaluation and treatment, o rthopedic consultation was requested Past Medical History Past Medical History: CVA/TIA, Hyperlipidemia, Hypertension, Osteoarthritis (OA), Prostate Disorder, Skin Disorder Additional Past Medical History / Comment(s): BACK PROBLEMS, TIA 2009-no residual effects, 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 for-has never had any tx. for History of Any Multi-Drug Resistant Organisms: None Reported Past Surgical History: Joint Replacement, Orthopedic Surgery Additional Past Surgical History / Comment(s): LEFT KNEE arthroscopy, RIGHT ROTATOR CUFF, RIGHT HAND CTS, right hip arthroplasty, right thumb fusion, rohan cataracts removed Past Anesthesia/Blood Transfusion Reactions: No Reported Reaction Past Psychological History: No Psychological Hx Reported Smoking Status: Former smoker Past Alcohol Use History: None Reported, Rare Additional Past Alcohol Use History / Comment(s): quit smoking 12 yrs. ago, 1ppd, since age of 17, still might have an occasional cigar Past Drug Use History: None Reported - Past Family History Mother Family Medical History: No Reported History Medications and Allergies Home Medications Medication Instructions Recorded Confirmed Type Metoprolol Tartrate [Lopressor] 50 mg PO BID 12/08/13 08/14/23 History Simvastatin [Zocor] 40 mg PO DAILY 12/08/13 08/14/23 History Magnesium Oxide [Luevano] 500 mg PO HS 06/21/17 08/14/23 History Losartan/Hydrochlorothiazide 1 tab PO DAILY 12/23/22 08/14/23 History [Losartan-Hctz 100-25 mg Tab] Gabapentin 300 mg PO TID 08/14/23 08/14/23 History HYDROcodone/APAP 5-325MG [[place] 1 tab PO Q4-6H PRN 08/14/23 08/14/23 History 5-325] predniSONE 10 mg PO DAILY 08/14/23 08/14/23 History Allergies Allergy/AdvReac Type Severity Reaction Status Date / Time No Known Allergies Allergy Verified 08/14/23 20:11 Physical Exam Vitals: Vital Signs Temp Pulse Pulse Resp BP BP Pulse Ox 08/15/23 07:00 98.1 F 71 18 148/76 96 08/15/23 02:00 98.6 F 70 20 155/88 96 08/14/23 22:10 98.8 F 84 20 169/82 96 08/14/23 20:51 87 18 132/77 98 08/14/23 18:32 98.8 F 100 20 133/76 98 Intake and Output 08/14/23 08/15/23 08/15/23 22:59 06:59 14:59 Output Total 440 Balance -440 Output: Urine 440 Other: Voiding Method Urinal Weight 108.862 kg In general patient is alert and oriented x 3 in no distress HEENT head normocephalic and atraumatic Neck is supple no JVD no goiter no lymphadenopathy no carotid bruit Chest examination is clear to auscultation no crackles no wheezing Cardiac exam reveals regular heart sounds S1 and S2 no gallops no murmurs Abdomen is soft nontender no organomegaly with normal bowel sounds Extremity exam reveals no edema no cyanosis or clubbing Neurological examination reveals no gross focal deficits Results CBC & Chem 7: 08/15/23 05:56 08/15/23 05:56 Labs: Abnormal Lab Results - Last 24 Hours (Table) 08/14/23 08/14/23 08/14/23 Range/Units 19:48 19:48 19:48 WBC 11.1 H (3.8-10.6) k/uL RBC 6.08 H (4.30-5.90) m/uL Hgb 18.5 H (13.0-17.5) gm/dL Hct 55.1 H (39.0-53.0) % Neutrophils # 8.3 H (1.3-7.7) k/uL Potassium 3.3 L (3.5-5.1) mmol/L Glucose 124 H (74-99) mg/dL Urine Blood Trace H (Negative) Amorphous Sediment Rare H (None) /hpf Urine Bacteria Rare H (None) /hpf Urine Mucus Rare H (None) /hpf Thrombosis Risk Factor Assmnt - Choose All That Apply Each Factor Represents 1 point: Obesity (BMI >25) Each Risk Factor Represents 2 Points: Age 61-74 years Thrombosis Risk Factor Assessment Total Risk Factor Score: 3 Thrombosis Risk Factor Assessment Level: Moderate Risk Assessment and Plan Plan: Intractable low back pain Severe debilitating left lower extremity pain History of L3-4 laminectomy decompression performed December 2022 Gait disturbance with inability to stand or walk Underlying history of hypertension Underlying history of hyperlipidemia Underlying history of benign prostatic hypertrophy Previous history of CVA At this time patient was seen and examined Home medication were reviewed and reordered Patient was started on Decadron IV, IV morphine, and oral [place] Orthopedic consultation was requested Patient is scheduled for lumbar spine MRI For DVT prophylaxis subcu heparin Will follow closely
--- NOTE | 2023-08-15 17:34 | MR ---
EXAMINATION TYPE: MR lumbar spine wo/w con DATE OF EXAM: 08/15/2023 COMPARISON: None HISTORY: Lumbar spine pain TECHNIQUE: Multiplanar, multisequence images of the lumbar spine were acquired without and with 11 mL intravenou s Gadavist gadolinium contrast. The exam is significantly limited by involuntary patient motion. Findings: The lumbar vertebral segments are normal in height and alignment and there is no fracture or subluxat ion. There is laminectomy defect at the L3-4 level. There is severe disc space narrowing and discogenic endplate changes at the L2-3 level. There is mild to moderate disc space narrowing, circumferential disc bulge and spondylosis at the L1-2, L3-4, L4-5 and L5-S1 levels. There are no large lumbar disc herniations but evaluation is limited by motion. Secondary to marked hypertrophy of the facets and thickening of ligamentum flavum, there is a mild to moderate spinal stenosis at the L4-5 level there is a probable mild spinal stenosis at the L2-3 leve l. There is moderate to severe neural foraminal stenosis at the L2-3, L3-4 and L4-5 levels on the right. There is severe neural foraminal stenosis at the L3-4 level on the left and mild to moderate neurofo raminal stenosis at the L2-3 and L4-5 levels on the left. IMPRESSION: 1. The axial images are markedly limited due to involuntary patient motion. 2. Laminectomy defect at the L3-4 level. 3. Advanced facet arthropathy and circumferential disc bulge leading to mild to moderate spinal steno sis L4-5 level and mild spinal stenosis at the L2-3 level 4. Evaluation is limited for disc herniation but no large disc herniations are identified. 5. bilateral multilevel significant neural foraminal stenosis, most severe at the L3-4 level on the left.
[2023-08-15] MEDS: MAGNESIUM OXIDE 400 MG TAB PO SCH (21:06)
[2023-08-16] MEDS ORDERED: ALPRAZolam 1 MG TAB PO PRN (08:06)
--- NOTE | 2023-08-16 08:06 | P.PN ---
Progress Note - Text Progress Note Date: 08/16/23 The patient is seen and examined at the bedside. He is well-known to our service. I reviewed the H&P and the MRI from yesterday. Patient continues to have severe pain in his left lower extremity. His unrelenting for him and he is unable to be mobile or stand or walk adequately. He denies changes in his bowel bladder function. He denies loss of control of his bowels. He is able to void. He denies new weakness in his leg but he is unable to mobilize. He remains afebrile stable vital signs Abdomen soft and nontender His lower extremities he has sustained dorsiflexion plantarflexion EHL. He has considerable pain when he tries to lift his leg up off the bed and has breakaway strength with hip flexion and knee extension on the left His neck is nontender his upper extremities have full active and passive range of motion His MRI from yesterday is reviewed. There is severe central and bilateral foraminal stenosis L3-4. There is prior laminectomy at that site. There does not appear to be any CSF fluid collection. There is degenerative change L2-3 and L4-5. There is some moderate foraminal encroachment at both those levels. 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 He has failed conservative treatment. He has evidence of severe recurrent stenosis L3-4 and I think he has had significant breakdown at that level since his laminectomy. He has significant breakaway strength and is unable to mobilize. I think that the patient requires revision surgery to decompress the nerve for his severe stenosis at L3-4. I would plan for revision decompression L3-4 and given the recurrent breakdown and recurrent symptoms I think that he needs stabilization at that level as he has significant instability and will have further iatrogenic instability with further decompression necessitating the fusion at L3-4. I think this can provide relief for the nerve as well as stabilization at that level. I discussed the risk complications alternatives and benefits with him. I discussed the risk of bleeding risk infection risk and need for further surgery risk of decrease or loss of motion loss of function dural tear nerve damage as well as the fact that surgery may not alleviate his symptoms was explained. I answered his questions best my ability limb she understand and he wants to proceed with surgical intervention. Will plan for surgery tomorrow on Tuesday. He is going to obtain medical clearance for surgery in the form of revision laminectomy L3-4 with fusion L3-4 and be n.p.o. after midnight.
--- NOTE | 2023-08-16 10:27 | P.PN ---
Subjective Progress Note Date: 08/16/23 Michael Pearson, is a 73 year old male who presented to [facility] emergency room with a chief complaint of severe intractable intractable low back pain, he previously had laminectomy decompression in December [address] Valdes. He was evaluated in the emergency room vital examination on presentation revealed a temperature of 98.8 pulse 100 respiration 20 blood pressure 133/76 pulse ox 98% on room air Laboratory data revealed a white blood count of 11.1 hemoglobin 18.5 platelet count 150 potassium 3.3 urine analysis revealed no significant evidence of urinary tract infection Patient was admitted to medical floor for further evaluation and treatment, orthopedic consultation was requested On 08/16/2023 for patient's alert and oriented 3. Patient still complaining of back pain. LumbarSpine MRI completed and reviewed per orthopedic services plans for revision and decompression of L3 to L4 tomorrow 08/17/2023. Current vital signs temp 98.2, heart rate 81, respiratory rate 16, blood pressure 144/70 with pulse ox 96% on room air. Patient denies chest pain or shortness breath. Patient denies nausea vomiting or diarrhea. Patient denies any urinary burning or frequency Objective - Vital Signs Vital signs: Vital Signs Temp 98.2 F 08/16/23 07:00 Pulse 81 08/16/23 07:00 Resp 16 08/16/23 07:00 BP 144/78 08/16/23 07:00 Pulse Ox 96 08/16/23 07:00 FiO2 Intake & Output 08/15/23 08/16/23 08/16/23 18:59 06:59 18:59 Intake Total 236 118 Output Total 250 Balance 236 -250 118 Intake: Oral 236 118 Output: Urine 250 Other: Voiding Method Urinal Urinal # Voids 0 0 - Exam In general patient is alert and oriented x 3 in no distress HEENT head normocephalic and atraumatic Neck is supple no JVD no goiter no lymphadenopathy no carotid bruit Chest examination is clear to auscultation no crackles no wheezing Cardiac exam reveals regular heart sounds S1 and S2 no gallops no murmurs Abdomen is soft nontender no organomegaly with normal bowel sounds Extremity exam reveals no edema no cyanosis or clubbing Neurological examination reveals no gross focal deficits - Labs CBC & Chem 7: 08/15/23 05:56 06/10/24 05:56 Labs: Abnormal Lab Results - Last 24 Hours (Table) 08/15/23 Range/Units 05:56 BUN/Creatinine Ratio 22.00 H (12.00-20.00) Ratio Glucose 130 H (70-110) mg/dL Assessment and Plan Plan: Intractable low back pain Severe debilitating left lower extremity pain History of L3-4 laminectomy decompression performed December 2022 Gait disturbance with inability to stand or walk Underlying history of hypertension Underlying history of hyperlipidemia Underlying history of benign prostatic hypertrophy Previous history of CVA At this time patient was seen and examined Home medication were reviewed and reordered Patient was started on Decadron IV, IV morphine, and oral [place] Orthopedic consultation was requested Lumbar spine MRI completedPlans for compression and revision per orthopedic services on 08/17/2023 For DVT prophylaxis subcu heparin Will follow closely
[2023-08-16] MEDS: HYDROmorphone 1 MG/ML 1 ML SYRINGE IVP PRN (11:53)
[2023-08-17] MEDS ORDERED: LIDOCAINE 1% (10MG/ML) FOR IV START INTRADERMA PRN (09:59)
[2023-08-17] MEDS ORDERED: HYDROmorphone 0.5 MG/0.5 ML SYRINGE IVP PRN ×2 (09:59→14:39)
[2023-08-17] MEDS: IV FLUID CONTINUATION 1,000 ML IV ONE ×4 (10:00→10:27)
[2023-08-17] MEDS: LACTATED RINGERS 1,000 ML IV SCH (10:03)
[2023-08-17] MEDS: ONDANSETRON 4 MG/2 ML VIAL IVP PRN (10:03)
[2023-08-17] MEDS: MIDAZOLAM 2 MG/2 ML VIAL IVP ONE (10:07)
--- NOTE | 2023-08-17 10:28 | P.ANPRN ---
Procedure Note - Anesthesia - Invasive Line Right Arterial Line Time Out Performed: Yes Date of Procedure: 08/17/23 Time of Procedure: 10:10 Location of Patient: PreOp Preparation: Sterile Prep Arterial Line Location: Radial Ultrasound Used: Yes Purpose - Visualization and Identification of Vasculature: Yes Image Stored and Saved: Yes Narrative: Invasive line placement per sterile protocol utilized.ATTEMPTx1
[2023-08-17] MEDS ORDERED: DEXAMETHASONE SOD PHOSPHATE 4 MG/ML 1 ML VIAL ONE (10:51)
[2023-08-17] MEDS ORDERED: PHENYLEPHRINE 10 MG/ML VIAL ONE (10:51)
[2023-08-17] MEDS ORDERED: SUCCINYLCHOLINE CHLORIDE 200 MG/10 ML VIAL IV ONE (10:51)
[2023-08-17] MEDS ORDERED: MIDAZOLAM 2 MG/2 ML VIAL ONE (10:51)
[2023-08-17] MEDS ORDERED: ROCURONIUM 10 MG/ML (5 ML VIAL) IV ONE (10:51)
[2023-08-17] MEDS ORDERED: TRANEXAMIC 1,000 MG/100ML-NACL PREMIX BAG ONE (10:51)
[2023-08-17] MEDS ORDERED: HYDROmorphone (PF) 1 MG/ML ONE (10:51)
[2023-08-17] MEDS ORDERED: PROPOFOL 10 MG/ML 20 ML VIAL IV ONE (10:51)
[2023-08-17] MEDS ORDERED: KETAMINE HCL IN 0.9 % NACL 50 MG/5 ML SYRINGE ONE (10:51)
[2023-08-17] MEDS ORDERED: fentaNYL (PF) 50 MCG/ML 2 ML AMP ONE (10:51)
[2023-08-17] MEDS: SODIUM CHLORIDE 0.9% 100 ML with ceFAZolin 2,000 MG IV ONE (10:55)
[2023-08-17] MEDS: LIDOCAINE 2%-EPI 1:100,000 20 ML VIAL SQ ONE (11:29)
[2023-08-17] MEDS: ceFAZolin 1,000 MG in SODIUM CHLORIDE 0.9% 1,000 ML IRRIGATION ONE ×2 (11:29→13:39)
[2023-08-17] MEDS: THROMBIN (BOVINE) 5,000 UNIT VIAL TOPICAL ONE (11:29)
[2023-08-17] MEDS: BUPIVACAINE (PF) 0.5% 30 ML VIAL SQ ONE (11:29)
[2023-08-17] MEDS: LACTATED RINGERS 1,000 ML IV ONE ×2 (13:32)
[2023-08-17] MEDS ORDERED: BENZOCAINE/MENTHOL LOZENG 1 EACH LOZENGE MUCOUS MEM PRN (14:39)
[2023-08-17] MEDS ORDERED: diazePAM 5 MG TAB PO PRN (14:39)
[2023-08-17] MEDS ORDERED: HYDROmorphone 1 MG/ML 1 ML SYRINGE IVP PRN (14:39)
[2023-08-17] MEDS ORDERED: MAGNESIUM HYDROXIDE 2,400 MG/30 ML CUP PO PRN (14:40)
[2023-08-17] MEDS ORDERED: SENNOSIDES-DOCUSATE SODIUM 1 EACH TAB PO PRN (14:40)
--- NOTE | 2023-08-17 14:44 | XR ---
EXAM TYPE: LUMBAR SPINE X RAY SERIES COMPARISON: NONE HISTORY: Lumbar surgery TECHNIQUE: Approximately 10 views are submitted. FINDINGS: Limited resolution intraoperative images are nearly nondiagnostic. Demonstrate intraoperative surgica l changes. IMPRESSION: 1. See above.
--- NOTE | 2023-08-17 14:44 | FL ---
EXAMINATION TYPE: FL guidance operating room DATE OF EXAM: 08/17/2023 HISTORY: Fluoroscopy time Total dose area product (DAP) in uGy*m?, mGy*cm? (or similar): 2653.05 IMPRESSION: 1. Fluoroscopy time.
--- NOTE | 2023-08-17 14:56 | P.OP ---
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, recurrent Herniated nucleus pulposus L3-4 Left lower extremity radiculopathy, left lower extremity weakness, history of laminectomy decompression L3-4 and history of revision laminectomy decompression L3-4, degenerative disc disease, facet arthrosis Postoperative Diagnosis: Same Procedure: Revision laminectomy and decompression L3-4 with wide bilateral foraminotomies and partial medial facetectomy on the right and full facetectomy on the left Computer CT navigation aided Posterior lateral revision decompression and fusion L3-4 Open transforaminal lumbar interbody fusion for a 360 fusion L3-4 Discectomy for decompression L3-4 Placement of interbody graft L3-4 Use of computer navigation for fusion Local autogenous bone grafting Aspiration of bone marrow from the vertebral body pedicle L3 on the right Use of bone graft extenders Surgeon: Dr. Valdes Commercial Drafter: Aaron HAWKINS who is present throughout the entire the case persistence during positioning, dissection, exposure, visualization, and all crucial elements of the case as well as closure. Anesthesia: General anesthesia per Dr. Inman Estimated blood loss: Approximately 350 mL Complications: None apparent Components implanted: K2M minimally invasive [place] pedicle screw system withscrews measuring 6.5 mm in diameter to rods one Caroline interbody cage with 10 mL of osteo amp bio4 bone graft substitute and 30 mL of the BX bone fibers to supplement the local autogenous bone graft and bone marrow aspirate Disposition: To recovery room in good stable condition. OPERATIVE INDICATIONS The patient is a very pleasant 73-year-old male who has been having severe unrelenting left lower extremity radicular pain which is essentially incapacitated him. Last year the patient had severe spinal stenosis and neurogenic claudication which appeared to be centered at L3-4. He underwent laminectomy decompression and had an incidental durotomy which had subsequent repair after revision decompression and repair. He had actually made good progress postoperatively with his back and his lower extremities and was able to do regular activities at home. However the patient has been having worsening over the past several weeks and had severe incapacitating pain over the past couple of weeks. The pain was primarily located in his left lower extremity and he was unable to ambulate or perform any regular activities at home. He presented to the hospital via ambulance and had further evaluation. He had been through conservative treatment but was having continued symptoms and had new MRI which showed evidence of central stenosis which was recurrent and left severe foraminal stenosis. Some of the imaging was somewhat difficult to decipher due to prior scar tissue formation and motion. The patient is having severe radicular symptoms at their lower extremity with weakness. The patient is having significant pain in their back, and primarily at his left lower extremity. They are unable to obtain any comfort. We did aggressive conservative treatment. He was not having any relief. The patient has been through conservative treatment. We discussed revision decompression and discectomy and the fact that he was having continued breakdown at the L3-4 level with instability and was likely to have further iatrogenic instability requiring stabilization and fusion at that level. We discussed various treatment options including surgery, and the patient wishes to proceed with surgery We discussed the risk, patient's alternatives and benefits of surgery including but not limited to, risk of bleeding risk of infection, risk of need for further surgery, risk of decreased, loss of motion, muscle function, malunion nonunion, hardware failure, nerve damage, paralysis, heart attack, blindness and . They understood issues with the current pandemic and the possibility of exposur e. OPERATIVE SUMMARY After discussing all the risks, patient alternatives and benefits at length, the patient elected to proceed with surgical intervention, signed informed consent, and presented for their procedure. The patient was seen and examined in the preoperative holding area and the surgical site was marked. The patient was given antibiotics and brought to the operating room. The patient was sedated and intubated by anesthesia in standard fashion. The patient was positioned on to the operating room table in a prone position on the appropriate frame which was well-padded and well molded. We were careful to pad any bony prominences and pressure points. We were careful to maintain the patient's cervical spine and good neutral alignment and position throughout. The patient was prepped and draped in a normal standard fashion. An appropriate timeout and keystone protocol performed. We were able to proceed with the surgery. The local wound area was infiltrated with local anesthetic. I utilized the same midline incision as prior surgeries and I was able to dissect down. There is significant scar tissue over the area and I was able to identify the spinous process and the remaining lamina at L3-4 and dissect over the facet joints down to the transverse process bilaterally. I was able place the computer referencing device spinous process of L4 to establish an approp riate reference point for the Ziem CT navigation. We then were able to place patient in an appropriate drape and do a navigation spin for visualization and 3-D reconstruction of the lumbar spine. I was able utilize C-arm guidance and navigation to establish appropriate position over the pedicles bilaterally at the appropriate levels at L3 and L4. I was able to establish a Jamshidi needle over the lateral aspect of the pedicle and advanced the trocar into the pedicle being careful not to breech superiorly inferiorly medially or laterally using computer navigation device. Position was confirmed regularly with AP and lateral images on C-arm and with the computer navigation device at the appropriate levels bilaterally. I was able to establish the trocar into the pedicle appropriately into the posterior aspect of the vertebral body bilaterally at the appropriate levels. This was done at each of the pedicle positions and each of the vertebrae at L3 and L4 bilaterally. At the superior vertebrae I was able to take approximately 15 mL of bone aspiration for use later in the case to supplement the allograft and autograft bone. I was able place the guidewire into the trocar and into the vertebral body appropriately under C-arm guidance. Dissection was taken down over the wire to the appropriate starting position for the screw placed. The appropriate length screw was chosen, threaded over the guidewire and screwed appropriately into the pedicle and vertebral body under C-arm guidance in excellent alignment and position with good bony purchase. This is done at each of the screw sites at the appropriate levels L3 and L4. I dissected down to establish access over the pars and lamina to the base of the spinous process. I was able to expose the facet joints bilaterally at L3 and L4. The capsule the facet was taken down and showed some facet arthrosis at the joint. There is significant scar tissue formation around the area which made the revision decompression quite tedious. I was able to use a combination of curettes and Kerrison rongeurs and a high-speed drill to take down the facet joint and do a facetectomy. With the facetectomy on the left side I was able to expose the area there was significant calcification and bony fragment at the neural foramen. There is also a large extruded disc fragment at the far lateral space which was able to be removed. This gave excellent far lateral decompression over the area. I was able get excellent foraminal decompression. There is substantial central and right sided scar tissue formation which was tediously dissected down to get good central decompression and right foraminal decompression. I was able to expose the disc space and visualize the traversing nerve root. Note was made of large disc protrusion and disc herniation at the left far lateral space that was abutting the traversing and the exiting nerve root at the level causing further compression of the nerve root. I performed a complete discectomy with accommodation of curettes and rasps and scrapers. I was able get good endplate preparation at the disc space. I sized for the appropriate size interbody spacer protecting the soft tissue and neural structures. The wound was copiously irrigated and suctioned dry. There is no evidence of any dural tear or leak. I was able to pack the disc space with local autogenous bone graft as well as a small amount of bone graft which was also placed into the interbody cage itself. Protecting the soft tissue structures and neural structures I was able place the interbody cage in good alignment and good position with good fit and fill at the interbody space. Position was confirmed with C-arm guidance. Good hemostasis maintained. There is no evidence of any dural tear or leak. The wound was irrigated and suctioned dry. With the hardware intact, intraoperative C-arm imaging was again taken which showed good alignment and position of the hardware at the appropriate levels at L3 and 4. We were then able to measure, contour and place the rods and appropriate hardware bilaterally. I was able to place capcrews, tighten them down, and torque them with the torque screwdriver appropriately. With this intact I was able to place the local autogenous bone graft with additional bone graft enhancer as necessary into the posterior lateral gutters over the decorticated transverse processes and facet joints on the contralateral side. The remainder of the bone graft was placed over the facet joint on the contralateral side after taking down the facet joint capsule. With the bone graft intact, a stable construct, and good decompression at the appropriate levels, we were able to proceed with closure. Good hemostasis was maintained. There is no evidence of dural tear or leak. The fascia was closed for a watertight closure. he subcuticular tissue was closed with absorbable suture. The wound was cleaned and dried and dressed with the appropriate dressing. The drapes were broken down. The patient was gently rolled back onto their hospital bed being careful to maintain their cervical spine and good neutral alignment and position. They were woken up by anesthesia, extubated, and brought to the recovery room in good stable condition. The patient will be admitted to the hospital for appropriate postoperative care, medical management and monitoring. We will continue to follow them closely about the postoperative course.
--- NOTE | 2023-08-17 15:38 | P.PN ---
Subjective Progress Note Date: 08/17/23 Michael Pearson, is a 73 year old male who presented to [facility] emergency room with a chief complaint of severe intractable intractable low back pain, he previously had laminectomy decompression in December [address] Valdes. He was evaluated in the emergency room vital examination on presentation revealed a temperature of 98.8 pulse 100 respiration 20 blood pressure 133/76 pulse ox 98% on room air Laboratory data revealed a white blood count of 11.1 hemoglobin 18.5 platelet count 150 potassium 3.3 urine analysis revealed no significant evidence of urinary tract infection Patient was admitted to medical floor for further evaluation and treatment, orthopedic consultation was requested On 08/16/2023 patient's alert and oriented 3. Patient still complaining of back pain. LumbarSpine MRI completed and reviewed per orthopedic services plans for revision and decompression of L3 to L4 tomorrow 08/17/2023. Current vital signs temp 98.2, heart rate 81, respiratory rate 16, blood pressure 144/70 with pulse ox 96% on room air. Patient denies chest pain or shortness breath. Patient denies nausea vomiting or diarrhea. Patient denies any urinary burning or frequency On 08/17/2023 patient was seen and examined on the medical floor he is alert and oriented x 3 in no apparent distress, he is still complaining of severe back pain otherwise he denies any complaints there is no fever or chills no headache or dizziness no chest pain no shortness of breath no cough no nausea or vomiting no abdominal pain no diarrhea no urinary symptoms, he is scheduled for back surgery today. Objective - Vital Signs Vital signs: Vital Signs Temp 97 F L 08/17/23 14:44 Pulse 58 L 08/17/23 15:29 Resp 18 08/17/23 15:29 BP 145/68 08/17/23 15:29 Pulse Ox 100 08/17/23 15:29 FiO2 Intake & Output 08/16/23 08/17/23 08/17/23 18:59 06:59 18:59 Intake Total 118 2001 Output Total 400 650 Balance 118 -400 1352 Intake: IV 2001 Oral 118 Output: Urine 400 350 Estimated Blood Loss 300 Other: Voiding Method Urinal Urinal # Bowel Movements 2 - Exam In general patient is alert and oriented x 3 in no distress HEENT head normocephalic and atraumatic Neck is supple no JVD no goiter no lymphadenopathy no carotid bruit Chest examination is clear to auscultation no crackles no wheezing Cardiac exam reveals regular heart sounds S1 and S2 no gallops no murmurs Abdomen is soft nontender no organomegaly with normal bowel sounds Extremity exam reveals no edema no cyanosis or clubbing Neurological examination reveals no gross focal deficits - Labs CBC & Chem 7: 08/15/23 05:56 08/15/23 05:56 Assessment and Plan Plan: Intractable low back pain Severe debilitating left lower extremity pain History of L3-4 laminectomy decompression performed December 2022 Gait disturbance with inability to stand or walk Underlying history of hypertension Underlying history of hyperlipidemia Underlying history of benign prostatic hypertrophy Previous history of CVA At this time patient was seen and examined Home medication were reviewed and reordered Patient was started on Decadron IV, IV morphine, and oral [place] Orthopedic consultation was requested Lumbar spine MRI completedPlans for compression and revision per orthopedic services on 08/17/2023 For DVT prophylaxis subcu heparin Will follow closely
[2023-08-17] MEDS: TRANEXAMIC 1,000 MG/100ML-NACL 1,000 MG in SALINE 1 100ML.BAG IVPB STA (17:04)
[2023-08-17] MEDS: SODIUM CHLORIDE 0.9% 1,000 ML IV SCH (17:05)
[2023-08-17] MEDS: HYDROcodone/APAP 10-325MG 1 EACH TAB PO PRN (21:58)
[2023-08-18] MEDS: SENNOSIDES-DOCUSATE SODIUM 1 EACH TAB PO SCH (09:10)
[2023-08-18 09:12] LABS: ALT 24 U/L (4-49); AST 36 U/L (17-59); African American GFR (CKD) >90 (>60 ml/min/1.73 sqM); Albumin 3.3 g/dL (3.5-5.0); Albumin/Globulin Ratio 1.4; Alkaline Phosphatase 62 U/L (38-126); Anion Gap 1 mmol/L; Blood Urea Nitrogen 32 mg/dL (9-20); Calcium 8.8 mg/dL (8.4-10.2); Carbon Dioxide 31 mmol/L (22-30); Chloride 105 mmol/L (98-107); Globulin 2.4 g/dL; Glucose 133 mg/dL (74-99); Non-African American GFR(CKD) >90 (>60 ml/min/1.73 sqM); Sodium 137 mmol/L (137-145); Total Bilirubin 1.3 mg/dL (0.2-1.3); Total Protein 5.7 g/dL (6.3-8.2)
[2023-08-18 09:20] LABS: Potassium 4.5 mmol/L (3.5-5.1)
[2023-08-18 09:40] LABS: Basophils # (A) 0.1 k/uL (0-0.2); Basophils % (A) 0 %; Eosinophils # (A) 0.1 k/uL (0-0.7); Eosinophils % (A) 1 %; HCT 54.2 % (39.0-53.0); HGB 18.2 gm/dL (13.0-17.5); Lymphocytes # (A) 0.7 k/uL (1.0-4.8); Lymphocytes % (A) 3 %; MCH 30.4 pg (25.0-35.0); MCHC 33.6 g/dL (31.0-37.0); MCV 90.6 fL (80.0-100.0); Mean Platelet Volume 9.4; Monocytes # (A) 1.7 k/uL (0-1.0); Monocytes % (A) 8 %; Neutrophils # (A) 18.5 k/uL (1.3-7.7); Neutrophils % (A) 88 %; Platelet Count 155 k/uL (150-450); RBC 5.98 m/uL (4.30-5.90); RDW 13.2 % (11.5-15.5); WBC 21.1 k/uL (3.8-10.6)
--- NOTE | 2023-08-18 09:46 | P.PN ---
Progress Note - Text Progress Note Date: 08/18/23 Postoperative day #1 Patient is seen and examined today at bedside. The patient has some pain around the surgical site as expected. Pain is being controlled with medication. He was able to walk around the nurses station with physical therapy without any assistance using a walker. He feels his leg is doing great. His back is sore but his leg is significantly improved with his surgery. Physical Exam Afebrile with stable vital signs Abdomen is soft nontender. Chest has good excursion deep and space expiration The incision site is clean dry and intact. No erythema there is no purulence. There is no bleeding it is clean and dry. Extremities have not had neurologic change from prior to surgery. He is moving his leg without pain. He has sustained dorsiflexion plantarflexion EHL hip flexion and knee extension Calves and thighs were soft nontender without evidence of DVT. Assessment/Plan Postoperative day #1 status post open revision decompression L3-4 with fusion L3-4 for his large disc herniation with recurrent stenosis and lower extreme radiculopathy Patient's leg is doing great after his surgery. He is very happy with that. His low back is quite sore as expected from the surgery but he is managing well with medications. Patient is progressing as expected from the surgery. We will continue to increase the patient's mobilization with therapy. His Cheek has been discontinued but he has not voided yet. We will follow this. It is likely that he will be able to be discharged home tomorrow if he is voiding adequately and the pain control We will continue pain control with oral or IV medications. We'll continue to follow patient closely.
--- NOTE | 2023-08-18 12:59 | P.PN ---
Subjective Progress Note Date: 08/18/23 Michael Pearson, is a 73 year old male who presented to [facility] emergency room with a chief complaint of severe intractable intractable low back pain, he previously had laminectomy decompression in December [address] Valdes. He was evaluated in the emergency room vital examination on presentation revealed a temperature of 98.8 pulse 100 respiration 20 blood pressure 133/76 pulse ox 98% on room air Laboratory data revealed a white blood count of 11.1 hemoglobin 18.5 platelet count 150 potassium 3.3 urine analysis revealed no significant evidence of urinary tract infection Patient was admitted to medical floor for further evaluation and treatment, orthopedic consultation was requested On 08/16/2023 patient's alert and oriented 3. Patient still complaining of back pain. Lumbar Spine MRI completed and reviewed per orthopedic services plans for revision and decompression of L3 to L4 tomorrow 08/17/2023. Current vital signs temp 98.2, heart rate 81, respiratory rate 16, blood pressure 144/70 with pulse ox 96% on room air. Patient denies chest pain or shortness breath. Patient denies nausea vomiting or diarrhea. Patient denies any urinary burning or frequency On 08/17/2023 patient was seen and examined on the medical floor he is alert and oriented x 3 in no apparent distress, he is still complaining of severe back pain otherwise he denies any complaints there is no fever or chills no headache or dizziness no chest pain no shortness of breath no cough no nausea or vomiting no abdominal pain no diarrhea no urinary symptoms, he is scheduled for back surgery today. On 08/18/2023 patient was seen and examined on the medical floor he is alert and oriented x 3 in no apparent distress, he reports significant improvement in his back pain, there is no fever or chills no headache or dizziness no chest pain no shortness of breath no cough no nausea or vomiting no abdominal pain no diarrhea and no urinary symptoms. For DVT prophylaxis he is on SCD stockings Objective - Vital Signs Vital signs: Vital Signs Temp 98.4 F 08/18/23 06:55 Pulse 68 08/18/23 06:55 Resp 18 08/18/23 09:10 BP 151/84 08/18/23 06:55 Pulse Ox 95 08/18/23 06:55 FiO2 Intake & Output 08/17/23 08/18/23 08/18/23 18:59 06:59 18:59 Intake Total 2001 Output Total 900 1200 Balance 1102 -1200 Intake: IV 2001 Output: Urine 600 1200 Estimated Blood Loss 300 Other: Voiding Method Indwelling Catheter Toilet - Exam In general patient is alert and oriented x 3 in no distress HEENT head normocephalic and atraumatic Neck is supple no JVD no goiter no lymphadenopathy no carotid bruit Chest examination is clear to auscultation no crackles no wheezing Cardiac exam reveals regular heart sounds S1 and S2 no gallops no murmurs Abdomen is soft nontender no organomegaly with normal bowel sounds Extremity exam reveals no edema no cyanosis or clubbing Neurological examination reveals no gross focal deficits - Labs CBC & Chem 7: 08/18/23 08:11 08/18/23 08:11 Labs: Abnormal Lab Results - Last 24 Hours (Table) 08/18/23 08/18/23 Range/Units 08:11 08:11 WBC 21.1 H (3.8-10.6) k/uL RBC 5.98 H (4.30-5.90) m/uL Hgb 18.2 H (13.0-17.5) gm/dL Hct 54.2 H (39.0-53.0) % Neutrophils # 18.5 H (1.3-7.7) k/uL Lymphocytes # 0.7 L (1.0-4.8) k/uL Monocytes # 1.7 H (0-1.0) k/uL Carbon Dioxide 31 H (22-30) mmol/L BUN 32 H (9-20) mg/dL Glucose 133 H (74-99) mg/dL Total Protein 5.7 L (6.3-8.2) g/dL Albumin 3.3 L (3.5-5.0) g/dL Assessment and Plan Plan: Intractable low back pain Severe debilitating left lower extremity pain History of L3-4 laminectomy decompression performed December 2022 Gait disturbance with inability to stand or walk Underlying history of hypertension Underlying history of hyperlipidemia Underlying history of benign prostatic hypertrophy Previous history of CVA At this time patient was seen and examined Home medication were reviewed and reordered Patient was started on Decadron IV, IV morphine, and oral [place] Orthopedic consultation was requested Lumbar spine MRI completedPlans for compression and revision per orthopedic services on 08/17/2023 For DVT prophylaxis subcu heparin Will follow closely
[2023-08-18] MEDS: TAMSULOSIN 0.4 MG CAP.ER.24H PO SCH (16:05)
[2023-08-19 02:16] VITALS: RESP 16
[2023-08-19] MEDS: ACETAMINOPHEN TAB 325 MG TAB PO PRN (05:59)
[2023-08-19 08:18] LABS: ALT 25 U/L (4-49); African American GFR (CKD) >90 (>60 ml/min/1.73 sqM); Albumin 3.3 g/dL (3.5-5.0); Albumin/Globulin Ratio 1.4; Anion Gap 0 mmol/L; Blood Urea Nitrogen 28 mg/dL (9-20); Calcium 8.9 mg/dL (8.4-10.2); Carbon Dioxide 29 mmol/L (22-30); Chloride 107 mmol/L (98-107); Globulin 2.4 g/dL; Glucose 114 mg/dL (74-99); Non-African American GFR(CKD) >90 (>60 ml/min/1.73 sqM); Sodium 136 mmol/L (137-145); Total Bilirubin 1.3 mg/dL (0.2-1.3); Total Protein 5.7 g/dL (6.3-8.2)
[2023-08-19 08:23] LABS: AST 33 U/L (17-59); Alkaline Phosphatase 59 U/L (38-126); Potassium 4.1 mmol/L (3.5-5.1)
--- NOTE | 2023-08-19 08:42 | P.DS ---
Providers Date of admission: 08/16/23 06:55 Expected date of discharge: 08/19/23 Attending physician: Valery Doe Consults: 08/14/23 20:22 Consult Physician Routine Consulting Provider: Estefania Valdes Consult Reason/Comments: intractable back pain, hx of lamenectomy Do you want consulting provider notified?: Already Contacted Primary care physician: Bev Macdonald - Discharge Diagnosis(es) (1) Osteophyte Current Visit: Yes Status: Acute (2) Lumbar facet arthropathy Current Visit: Yes Status: Acute (3) Difficulty in walking Current Visit: Yes Status: Acute (4) Intractable back pain Current Visit: Yes Status: Acute (5) Foraminal stenosis of lumbar region Current Visit: No Status: Acute (6) History of CVA (cerebrovascular accident) Current Visit: No Status: Acute (7) Hyperlipidemia Current Visit: No Status: Acute (8) Hypertension Current Visit: No Status: Acute (9) Lumbar back pain with radiculopathy affecting left lower extremity Current Visit: No Status: Acute (10) Prostate disorder Current Visit: No Status: Acute Hospital Course: This is a pleasant 73-year-old male who presented with severe left lower extremity radiculopathy, L3-4 recurrent severe spinal stenosis, L3-4 herniated nucleus pulposus, left lower extremity weakness, history of L3-4 laminectomy and decompression, lumbar facet arthrosis, lumbar degenerative disc disease, and low back pain who failed outpatient conservative therapy. He was admitted for an L3-4 open posterior lateral decompression and fusion with transforaminal lumbar interbody fusion with revision laminectomy and decompression. The patient tolerated the procedure well and did well postoperatively. He has had significant treatment of his left lower extremity radiculopathy. He is very happy. He states he is not currently experiencing any significant lower extremity pain. His back pain is well-controlled. He would like to be discharged home today. He has been able to urinate independently. He did receive Flomax last night. He has multiple walking aids to aid in ambulation as needed at home. Patient will need to be cleared by medicine prior to discharge home. Condition on day of discharge stable. Patient was cleared preoperatively for surgery by medicine. Patient currently denies any nausea, vomiting, fever, or chills. Patient is eating and voiding freely without difficulty. Patient may shower Optifoam dressing intact. Patient may remove Optifoam dressing in 3 days and shower without a dressing at that time. Patient should refrain from driving until at least after their first follow-up appointment in the office. Patient should avoid excessive bending, lifting, and twisting; no lifting greater than 10 pounds. MAPS has been reviewed today, 08/19/2023, with an Overall Overdose Risk Score of . An "Opiod Start Talking" Form has been signed and placed in the patient's chart. A prescription has been written for hydrocodone 10 mg / 325 mg, 1 tab, every 6 hours, as needed for acute pain, dispense #28. Patient is also given a prescription for baclofen 10 mg, 1 tab, 3 times daily, as needed for muscle spasm, dispense #60. He is given a prescription for Senokot-S, 1 tab, twice daily, as needed for constipation, dispense #60. Prescriptions are sent to his pharmacy per his request. Patient may resume his other previously prescribed medications while avoiding previously prescribed hydrocodone. He should avoid anti-inflammatory medications over the next 6 weeks. Patient's other medical diagnoses include hypertension, hyperlipidemia, BPH, and history of CVA. Physical Exam on day of discharge: Patient is awake, alert, and oriented 3 Vital signs stable Good chest excursion with deep inspiration and expiration Abdomen soft nontender No signs or symptoms of DVT; no calf pain Pneumatic cuffs intact bilaterally Extensor hallucis longus, plantarflexion, and dorsiflexion positive sustained bilateral lower extremities Incision is clean, dry, and intact; no erythema, purulence, or signs of infection Optifoam dressing intact Procedures: L3-4 open posterior lateral decompression and fusion with transforaminal lumbar interbody fusion with revision laminectomy and decompression Patient Condition at Discharge: Stable Plan - Discharge Summary New Discharge Prescriptions: New Baclofen 10 mg PO TID PRN #60 tab PRN Reason: Spasms HYDROcodone/APAP 10-325MG [Bouse 10] 1 each PO Q6H PRN #28 tab PRN Reason: Pain Sennosides-Docusate Sodium [Senokot-S] 1 tab PO BID PRN #60 tablet PRN Reason: Constipation No Action Simvastatin [Zocor] 40 mg PO DAILY Metoprolol Tartrate [Lopressor] 50 mg PO BID Magnesium Oxide [Luevano] 500 mg PO HS predniSONE 10 mg PO DAILY Losartan/Hydrochlorothiazide [Losartan-Hctz 100-25 mg Tab] 1 tab PO DAILY HYDROcodone/APAP 5-325MG [Bouse 5-325] 1 tab PO Q4-6H PRN PRN Reason: Pain Gabapentin 300 mg PO TID Discharge Medication List Metoprolol Tartrate [Lopressor] 50 mg PO BID 12/08/13 [History] Simvastatin [Zocor] 40 mg PO DAILY 12/08/13 [History] Magnesium Oxide [Luevano] 500 mg PO HS 06/21/17 [History] Losartan/Hydrochlorothiazide [Losartan-Hctz 100-25 mg Tab] 1 tab PO DAILY 12/23/22 [History] Gabapentin 300 mg PO TID 08/14/23 [History] HYDROcodone/APAP 5-325MG [Bouse 5-325] 1 tab PO Q4-6H PRN 08/14/23 [History] predniSONE 10 mg PO DAILY 08/14/23 [History] Baclofen 10 mg PO TID PRN #60 tab 08/19/23 [Rx] HYDROcodone/APAP 10-325MG [Bouse 10] 1 each PO Q6H PRN #28 tab 08/19/23 [Rx] Sennosides-Docusate Sodium [Senokot-S] 1 tab PO BID PRN #60 tablet 08/19/23 [Rx] Follow up Appointment(s)/Referral(s): Bev Macdonald MD [Primary Care Provider] - 1-2 days Estefania Valdes DO [Doctor of Osteopathic Medicine] - 2 Weeks (Patient may follow- up with Aaron Kumar PA-C or Dr. Leoncio Valdes at [facility] in 2-3 weeks following discharge.) Activity/Diet/Wound Care/Special Instructions: Keep site clean. May shower with waterproof Tegaderm intact. Do not soak in a tub. After 72 hours postoperatively, patient may remove dressing and then may shower with area uncovered. Leave glue intact and allow it to fray off on its own. May ambulate as tolerated. Avoid heavy or rigorous activity. No repetitive bending twisting or lifting. No overhead work. Patient may use walker or other aid to aid in ambulation as needed. Take medications as prescribed. Discharge Disposition: HOME SELF-CARE
--- NOTE | 2023-08-19 09:58 | P.PN ---
Subjective Progress Note Date: 08/19/23 Michael Pearson, is a 73 year old male who presented to [facility] emergency room with a chief complaint of severe intractable intractable low back pain, he previously had laminectomy decompression in December [address] Valdes. He was evaluated in the emergency room vital examination on presentation revealed a temperature of 98.8 pulse 100 respiration 20 blood pressure 133/76 pulse ox 98% on room air Laboratory data revealed a white blood count of 11.1 hemoglobin 18.5 platelet count 150 potassium 3.3 urine analysis revealed no significant evidence of urinary tract infection Patient was admitted to medical floor for further evaluation and treatment, orthopedic consultation was requested On 08/16/2023 patient's alert and oriented 3. Patient still complaining of back pain. Lumbar Spine MRI completed and reviewed per orthopedic services plans for revision and decompression of L3 to L4 tomorrow 08/17/2023. Current vital signs temp 98.2, heart rate 81, respiratory rate 16, blood pressure 144/70 with pulse ox 96% on room air. Patient denies chest pain or shortness breath. Patient denies nausea vomiting or diarrhea. Patient denies any urinary burning or frequency On 08/17/2023 patient was seen and examined on the medical floor he is alert and oriented x 3 in no apparent distress, he is still complaining of severe back pain otherwise he denies any complaints there is no fever or chills no headache or dizziness no chest pain no shortness of breath no cough no nausea or vomiting no abdominal pain no diarrhea no urinary symptoms, he is scheduled for back surgery today. On 08/18/2023 patient was seen and examined on the medical floor he is alert and oriented x 3 in no apparent distress, he reports significant improvement in his back pain, there is no fever or chills no headache or dizziness no chest pain no shortness of breath no cough no nausea or vomiting no abdominal pain no diarrhea and no urinary symptoms. For DVT prophylaxis he is on SCD stockings on 08/19/2023 patient's alert and oriented 3. Patient to be discharged home today per orthopedic services. Patient reports improvement with urination.white blood cell elevated but patient did receive dexamethasone denies any acute complaints. afebrile. Patient will be DC'd on Flomax follow-up PCP for further management Objective - Vital Signs Vital signs: Vital Signs Temp 98.2 F 08/19/23 01:43 Pulse 63 08/19/23 01:43 Resp 16 08/19/23 01:43 BP 155/78 08/19/23 01:43 Pulse Ox 96 08/19/23 01:43 FiO2 Intake & Output 08/18/23 08/19/23 08/19/23 18:59 06:59 18:59 Output Total 1250 Balance -1250 Output: Urine 1250 Other: Voiding Method Toilet Toilet # Voids 1 1 # Bowel Movements 1 - Exam In general patient is alert and oriented x 3 in no distress HEENT head normocephalic and atraumatic Neck is supple no JVD no goiter no lymphadenopathy no carotid bruit Chest examination is clear to auscultation no crackles no wheezing Cardiac exam reveals regular heart sounds S1 and S2 no gallops no murmurs Abdomen is soft nontender no organomegaly with normal bowel sounds Extremity exam reveals no edema no cyanosis or clubbing Neurological examination reveals no gross focal deficits - Labs CBC & Chem 7: 08/18/23 08:11 08/19/23 07:27 Labs: Abnormal Lab Results - Last 24 Hours (Table) 08/19/23 Range/Units 07:27 Sodium 136 L (137-145) mmol/L BUN 28 H (9-20) mg/dL Creatinine 0.62 L (0.66-1.25) mg/dL Glucose 114 H (74-99) mg/dL Total Protein 5.7 L (6.3-8.2) g/dL Albumin 3.3 L (3.5-5.0) g/dL Assessment and Plan Plan: Intractable low back pain Severe debilitating left lower extremity pain History of L3-4 laminectomy decompression performed December 2022 Gait disturbance with inability to stand or walk Underlying history of hypertension Underlying history of hyperlipidemia Underlying history of benign prostatic hypertrophy Previous history of CVA At this time patient was seen and examined Home medication were reviewed and reordered Patient was started on Decadron IV, IV morphine, and oral Jean Orthopedic consultation was requested status post revision on 08/17/2023 For DVT prophylaxis subcu heparin Will follow closely
[2023-08-19 09:59] VITALS: BP 156/82; PULSE 59; TEMP 98
[2023-08-19 10:45] LABS: Basophils % (A) 0 %; Eosinophils # (A) 0.1 k/uL (0-0.7); Eosinophils % (A) 0 %; HCT 50.1 % (39.0-53.0); HGB 17.8 gm/dL (13.0-17.5); Lymphocytes # (A) 0.6 k/uL (1.0-4.8); Lymphocytes % (A) 4 %; MCH 32.4 pg (25.0-35.0); MCHC 35.5 g/dL (31.0-37.0); MCV 91.3 fL (80.0-100.0); Mean Platelet Volume 8.2; Monocytes # (A) 1.2 k/uL (0-1.0); Monocytes % (A) 6 %; Neutrophils # (A) 16.3 k/uL (1.3-7.7); Neutrophils % (A) 89 %; Platelet Count 172 k/uL (150-450); RBC 5.49 m/uL (4.30-5.90); RDW 13.2 % (11.5-15.5); WBC 18.4 k/uL (3.8-10.6)
== END 2023-08-19 11:17 | disposition home or self-care (01) | DRG 454 ==
LOC: EC 18:28 → 6NMEDSUR 20:24 → OBSVTOIN 08-16 06:55 → 4SSUR 08-17 09:26
PROVIDERS: ADMIT Internal Medicine; ATTEND Internal Medicine
PROC: 0SG0071 Fusion of Lumbar Vertebral Joint with Autologous Tissue Substitute, Posterior Approach, Posterior Column, Open Approach (ICD-10-PCS; 2023-08-17)
PROC: 00NY0ZZ Release Lumbar Spinal Cord, Open Approach (ICD-10-PCS; 2023-08-17)
PROC: 01NB0ZZ Release Lumbar Nerve, Open Approach (ICD-10-PCS; 2023-08-17)
PROC: 0SB20ZZ Excision of Lumbar Vertebral Disc, Open Approach (ICD-10-PCS; 2023-08-17)
PROC: 07DS3ZZ Extraction of Vertebral Bone Marrow, Percutaneous Approach (ICD-10-PCS; 2023-08-17)
PROC: 8E0WXBG Computer Assisted Procedure of Trunk Region, With Computerized Tomography (ICD-10-PCS; 2023-08-17)
PROC: 0SG00AJ Fusion of Lumbar Vertebral Joint with Interbody Fusion Device, Posterior Approach, Anterior Column, Open Approach (ICD-10-PCS; principal; 2023-08-17 12:10)
DX: M48.061 Spinal stenosis, lumbar region without neurogenic claudication (principal); M47.16 Other spondylosis with myelopathy, lumbar region; M51.06 Intervertebral disc disorders with myelopathy, lumbar region; M51.16 Intervertebral disc disorders with radiculopathy, lumbar region; E78.5 Hyperlipidemia, unspecified; I10 Essential (primary) hypertension; N40.0 Benign prostatic hyperplasia without lower urinary tract symptoms; M47.26 Other spondylosis with radiculopathy, lumbar region; G89.29 Other chronic pain; F17.210 Nicotine dependence, cigarettes, uncomplicated; E87.6 Hypokalemia; Z79.899 Other long term (current) drug therapy; Z86.73 Personal history of transient ischemic attack (TIA), and cerebral infarction without residual deficits; Z96.641 Presence of right artificial hip joint; Z98.42 Cataract extraction status, left eye; Z98.41 Cataract extraction status, right eye; M25.78 Osteophyte, vertebrae
CPT/HCPCS: 36415; 72100; 72158; 80053; 81001; 85025; 96361; 96374; 96375; 99285